=== PATIENT | male | born 1965 | race African-American/Black ===

== ENCOUNTER → 2018-06-23 | Outpatient (CLI) | payer OTHER ==
[~2018-06-23] MED LIST: CARVEDILOL25 MG PO; CLEOCIN HC150 MG/CAP PO; CLONIDINE0.2 MG PO; COREG12.5 MG PO; HCTZ 25MG TAB25 MG; NORCO 325 MG-51 TAB PO; PROCARDIA XL90 MG PO; SULAR10 MG PO; VICTOZA6 MG/ML SC; ZYLOPRIM 300MG300 MG PO
== END ==
LOC: COL.RAD 06-17 09:30
DX: M46.1 Sacroiliitis, not elsewhere classified (principal)
CPT/HCPCS: G0260; J3301

== ENCOUNTER 2018-11-24 00:05 | Emergency (ER) | payer OTHER ==
[~2018-11-24] VITALS: Ht 188 cm; Wt 150.0 kg
[2018-11-24 00:15] VITALS: TEMP 98.4
[2018-11-24] MEDS ORDERED: PRINIVIL10 MG PO (00:22)
[2018-11-24] MEDS ORDERED: SULAR34 MG PO (00:22)
[2018-11-24] MEDS ORDERED: COREG 25MG25 MG/TAB PO (00:23)
[2018-11-24] MEDS ORDERED: TRULICITY1.5 MG/0.5 SQ (00:23)
[2018-11-24] MEDS ORDERED: BACTROBAN 22GM22 GM TP (00:58)
[2018-11-24 01:22] LABS: BASO % 0.2 % (0.0-2.0); EOS # 0.1 (0.0-0.7); EOS % 1.2 % (0-4.0); GRAN # 7.3 (1.4-6.5); GRAN % 72.9 % (42.2-75.2); HEMATOCRIT 30.7 % (42.0-52.0); HEMOGLOBIN 10.1 g/dl (13.5-18.0); LYMPH # 1.4 (1.2-3.4); LYMPH % 13.8 % (20.0-51.0); MEAN CELL VOLUME 85 fl (80.0-100.0); MEAN CORPUSCULAR HEMOGLOBIN 28 pg (27.0-31.0); MEAN CORPUSCULAR HGB CONC 33 g/dl (33.0-37.0); MONO # 1.2 (0.1-0.6); MONO % 11.6 % (1.7-9.3); PLATELET COUNT 321 K/mm3 (130-400); RED BLOOD COUNT 3.63 M/mm3 (4.20-5.60); REDCELL DISTRIBUTION WIDTH-CV 14.6 % (11.5-14.5)
[2018-11-24 01:34] LABS: ALANINE AMINOTRANSFERASE < 6 U/L (21-72); ALBUMIN 3.5 gm/dL (3.5-5.0); ALKALINE PHOSPHATASE 65 U/L (50-136); ANION GAP 10 mmol/L (7-16); AST,SGOT 23 U/L (15-37); BILIRUBIN,TOTAL 0.5 mg/dL (0.0-1.0); BLOOD UREA NITROGEN 71 mg/dL (9-20); CALCIUM 8.9 mg/dL (8.4-10.2); CARBON DIOXIDE 27 mmol/L (22-30); CHLORIDE 99 mmol/L (98-107); GLUCOSE 114 mg/dL (74-106); POTASSIUM 3.3 mmol/L (3.4-5.0); SODIUM 136 mmol/L (137-145); TOTAL PROTEIN 7.7 gm/dL (6.4-8.2)
[2018-11-24 01:36] LABS: CREATININE, serum 4.23 (0.66-1.25)
[2018-11-24 01:42] LABS: ERYTHROCYTE SEDIMENTATION RATE > 140 mm/hr (0-30)
[2018-11-24] MEDS ORDERED: PREDNISONE20 MG PO (02:29)
[2018-11-24] MEDS ORDERED: CEPHALEXIN500 M1 PO (02:29)
[2018-11-24] MEDS ORDERED: PERCOCET 325 MG1 TA2 PO (02:29)
[2018-11-24 03:01] VITALS: BP 118/70; PULSE 99
== END 2018-11-24 03:06 | disposition home or self-care (01) ==
LOC: COL.ER 00:05
PROVIDERS: Nurse Practitioner
DX: M79.641 Pain in right hand (principal); M79.89 Other specified soft tissue disorders; E11.9 Type 2 diabetes mellitus without complications; I10 Essential (primary) hypertension
CPT/HCPCS: J7512

== ENCOUNTER 2019-02-21 06:02 | Emergency (ER) | payer OTHER, BC ==
[~2019-02-21] VITALS: Ht 188 cm; Wt 145.5 kg
[~2019-02-21 06:02] MED LIST changes: +BACTROBAN 22GM22 GM TP; +CEPHALEXIN500 M1 PO; +COREG 25MG25 MG/TAB PO; +PERCOCET 325 MG1 TA2 PO; +PREDNISONE20 MG PO; +PRINIVIL10 MG PO; +SULAR34 MG PO; +TRULICITY1.5 MG/0.5 SQ
[2019-02-21 06:21] VITALS: BP 133/78; TEMP 98.4
[2019-02-21] MEDS ORDERED: PRINIVIL20 MG PO (06:34)
[2019-02-21] MEDS ORDERED: ULORIC80 MG PO (06:35)
[2019-02-21] MEDS ORDERED: PREDNISONE20 MG PO (06:47)
[2019-02-21 06:55] VITALS: PULSE 88
== END 2019-02-21 06:55 | disposition home or self-care (01) ==
LOC: COL.ER 06:02
DX: M54.5 Low back pain (principal); E11.22 Type 2 diabetes mellitus with diabetic chronic kidney disease; N18.9 Chronic kidney disease, unspecified
CPT/HCPCS: J7512

== ENCOUNTER 2019-05-18 08:10 | Inpatient (IN) | payer OTHER ==
[~2019-05-18] VITALS: Ht 188 cm; Wt 125.7 kg
[~2019-05-18 08:10] MED LIST changes: +PRINIVIL20 MG PO; +ULORIC80 MG PO
[2019-05-18 09:32] LABS: BASO % 0.3 % (0.0-2.0); EOS # 0.1 (0.0-0.7); GRAN # 9.4 (1.4-6.5); GRAN % 81.4 % (42.2-75.2); HEMOGLOBIN 11.1 g/dl (13.5-18.0); LYMPH % 8.5 % (20.0-51.0); MEAN CELL VOLUME 87 fl (80.0-100.0); MEAN CORPUSCULAR HEMOGLOBIN 28 pg (27.0-31.0); MEAN CORPUSCULAR HGB CONC 32 g/dl (33.0-37.0); MEAN PLATELET VOLUME 9.4 fl (7.4-10.4); MONO % 8.3 % (1.7-9.3); PLATELET COUNT 470 K/mm3 (130-400); REDCELL DISTRIBUTION WIDTH-CV 15.1 % (11.5-14.5)
[2019-05-18 09:43] LABS: ALANINE AMINOTRANSFERASE < 6 U/L (21-72); ALBUMIN 3.9 gm/dL (3.5-5.0); ALKALINE PHOSPHATASE 86 U/L (50-136); ANION GAP 10 mmol/L (7-16); AST,SGOT 19 U/L (15-37); BILIRUBIN,TOTAL 0.6 mg/dL (0.0-1.0); BLOOD UREA NITROGEN 55 mg/dL (9-20); CALCIUM 10.1 mg/dL (8.4-10.2); CARBON DIOXIDE 28 mmol/L (22-30); CHLORIDE 99 mmol/L (98-107); CREATININE, serum 2.97 (0.66-1.25); GLUCOSE 149 mg/dL (74-106); POTASSIUM 3.9 mmol/L (3.4-5.0); SODIUM 137 mmol/L (137-145); TOTAL PROTEIN 8.7 gm/dL (6.4-8.2)
[2019-05-18 10:00] LABS: C-REACTIVE PROTEIN 20.6 mg/dL (0.0-0.9)
[2019-05-18 10:23] LABS: HEMATOCRIT 34.6 % (42.0-52.0)
[2019-05-18 10:27] LABS: ERYTHROCYTE SEDIMENTATION RATE > 140 mm/hr (0-30)
[2019-05-18 13:30] LABS: SYNOVIAL FLUID RBC 1000 /mm3 (0-0); SYNOVIAL FLUID WBC 15200 /mm3 (200-600)
[2019-05-18 13:31] LABS: SYNOVIAL FLUID APPEARANCE CLOUDY; SYNOVIAL FLUID COLOR YELLOW
[2019-05-18 16:35] VITALS: BP 146/79; PULSE 72; TEMP 98.2
[2019-05-18] MEDS ORDERED: NORCO 325 MG-101 TAB PO (17:30)
[2019-05-18 19:19] VITALS: BP 153/76; PULSE 70; TEMP 97.8
--- NOTE | 2019-05-18 20:40 | NUR ---
Patient assessed at this time. Alert and oriented x 4, and able to make needs known. Reports pain has decreased to left knee, rated as a 3 at this time. Declines ice to area. NS running at 125 ml/hr to peripheral IV to right AC. Site is without redness, warmth, swelling, and pain. Denies SOB and dyspnea. LS CTA. Respirations even and unlabored. HRR. Cap refill < 3 sec. Non-tenting skin turgor. BSAx4. Abdomen soft and non-tender. Ryan wrap to left knee intact to help with swelling. Elevated with pillows. Given walker to help with mobility. Educated to still call for assistance for safety, and voiced understanding. Voices no questions, needs, or concerns at this time. Resting in bed with call light within reach.
[2019-05-18 23:39] VITALS: BP 149/62; PULSE 72; TEMP 98.9
[2019-05-19 03:35] VITALS: BP 167/79; PULSE 70
[2019-05-19 06:17] LABS: BASO % 0.4 % (0.0-2.0); EOS # 0.1 (0.0-0.7); EOS % 1.5 % (0-4.0); GRAN % 75.6 % (42.2-75.2); LYMPH % 12.5 % (20.0-51.0); MEAN CELL VOLUME 89 fl (80.0-100.0); MEAN CORPUSCULAR HGB CONC 32 g/dl (33.0-37.0); MEAN PLATELET VOLUME 9.9 fl (7.4-10.4); MONO # 0.8 (0.1-0.6); MONO % 9.6 % (1.7-9.3); PLATELET COUNT 439 K/mm3 (130-400); RED BLOOD COUNT 3.53 M/mm3 (4.20-5.60); REDCELL DISTRIBUTION WIDTH-CV 15.4 % (11.5-14.5)
--- NOTE | 2019-05-19 06:19 | NUR ---
Patient received [place] twice this shift around midnight and four for pain to left knee. Voices no other questions, needs, or concerns at this time. IV site to right AC was leaking. New IV started to right forearm. NS continues to run at 125 ml/hr per orders.
[2019-05-19 06:20] LABS: HEMATOCRIT 31.4 % (42.0-52.0); HEMOGLOBIN 9.9 g/dl (13.5-18.0); MEAN CORPUSCULAR HEMOGLOBIN 28 pg (27.0-31.0)
[2019-05-19 06:46] LABS: ALBUMIN 3.6 gm/dL (3.5-5.0); CALCIUM 9.7 mg/dL (8.4-10.2); CREATININE, serum 3.29 (0.66-1.25); PHOSPHOROUS 4.6 mg/dL (2.5-4.5); POTASSIUM 3.8 mmol/L (3.4-5.0)
--- NOTE | 2019-05-19 06:50 | NUR ---
Vancomycin Initial Dosing Pharmacy Note Ordering provider: Obi Enamorado MD Indication/duration: Few Gm+ cells in knee aspirate Relevant comorbidities: T2DM, gout LABS: SCr 2.97 on 05/18, 3.29 on 05/19 Recommendation: Loading dose: 1.5 grams given 05/18/19 @ 15:36 Maintenance dose: 1 gram Q24H starting 05/19/19 @ 10:00 Trough goal: 15-20 ug/mL Trough draw: prior to the 4th dose, 05/21/19 @ 09:30 Will continue to follow.
[2019-05-19 07:20] VITALS: BP 166/99; PULSE 68; TEMP 98
--- NOTE | 2019-05-19 09:16 | NUR ---
SW met with the patient to discuss discharge plan. The patient lives in [place] with his brothers: Quinn (ph#[phone]) and Floresita. He works at [employer]. He reports independence with ADLs and has a wheelchair available if needed. He states he has been needing to use it recently, due to his knee pain. The patient's PCP is Dr. Olya Guillen and he receives his medications at [facility]. He reports no difficulties obtaining his meds. The patient does not have advanced directives completed and he was not interested in completing them at this time. The patient plans to return home with his brothers upon discharge. SW to continue to follow.
[2019-05-19 11:05] VITALS: BP 165/88; PULSE 71; TEMP 98.3
--- NOTE | 2019-05-19 11:13 | NUR ---
Initial visit; Patient thanked Party Demonstrator for looking in on him and offering empathy and God's blessings.
[2019-05-19 16:00] VITALS: BP 174/91; PULSE 78; TEMP 98.8
--- NOTE | 2019-05-19 18:16 | NUR ---
Pt assessment completed and charted. Medications administered per SEP. VORB from [facility] to decrease IVF rate from 125 to 75 ml/hr. Pt c/o some "swelling" in LE. Pt denies SOB, dizziness, N/V/D, chest pain. Pt c/o left knee pain, attempted to work with PT, very little progress made. Pt has RFA IV w/ IVF w/ no complications. pt on room air. pt using bedside urinal. Pt rating pain earlier this morning at 9/10, 8/10, and then 5/10 this evening. Administered PRN [place] per SEP, pt states it "seems to be working well". No other concerns voiced at this time.
[2019-05-19 19:02] VITALS: BP 142/71; PULSE 75; TEMP 98.7
--- NOTE | 2019-05-19 21:00 | NUR ---
Alert and oriented x 4, and able to make needs known. Complaining of level 8 pain to left knee. Given PRN [place] as requested. NS running at 75 ml/hr to peripheral IV to right forearm. Site is without redness, warmth, swelling, and pain. Denies SOB and dyspnea. LS CTA. Respirations even and unlabored. HRR. Capillary refill less than 3 seconds. Non-tenting skin turgor. BSAx4. 1+ edema BLE. Voices no questions, needs, or concerns at this time. Call light is within reach.
[2019-05-20] VITALS: BP 180/92; PULSE 75; TEMP 98.6
[2019-05-20 03:39] VITALS: BP 180/88; PULSE 74; TEMP 98.6
--- NOTE | 2019-05-20 03:55 | NUR ---
Patient complaining of level 8 pain to left knee. Given PRN [place] for pain.
--- NOTE | 2019-05-20 05:21 | NUR ---
VIDA Graves has been effective with pain management this shift. Has voiced no questions, needs, or concerns. Resting in bed with call light within reach.
[2019-05-20 06:25] LABS: BASO % 0.3 % (0.0-2.0); EOS # 0.1 (0.0-0.7); EOS % 1.9 % (0-4.0); GRAN % 73.1 % (42.2-75.2); LYMPH # 0.9 (1.2-3.4); LYMPH % 13.1 % (20.0-51.0); MEAN CELL VOLUME 88 fl (80.0-100.0); MEAN CORPUSCULAR HGB CONC 31 g/dl (33.0-37.0); MONO # 0.8 (0.1-0.6); MONO % 11.2 % (1.7-9.3); PLATELET COUNT 374 K/mm3 (130-400); REDCELL DISTRIBUTION WIDTH-CV 15.2 % (11.5-14.5)
[2019-05-20 06:29] LABS: HEMATOCRIT 30.9 % (42.0-52.0); HEMOGLOBIN 9.6 g/dl (13.5-18.0); MEAN CORPUSCULAR HEMOGLOBIN 27 pg (27.0-31.0)
[2019-05-20 07:05] LABS: ALBUMIN 3.3 gm/dL (3.5-5.0); CALCIUM 9.4 mg/dL (8.4-10.2); CREATININE, serum 2.82 (0.66-1.25); POTASSIUM 3.6 mmol/L (3.4-5.0)
[2019-05-20 07:06] VITALS: BP 162/78; PULSE 68; TEMP 99.2
[2019-05-20 12:18] VITALS: BP 171/85; PULSE 70; TEMP 97.9
--- NOTE | 2019-05-20 15:02 | NUR ---
SW met with the patient to review discharge plan and to discuss PT's recommendation of a FWW and home health vs post-acute rehab. The patient reports that he does not need a FWW and that he wants to go home upon discharge. He states that he does not need any help and that once he gets up and going, he will be fine. He states that he would be able to transfer himself to the bathroom. SW provided the patient with Medicare.[employer]'s list of home health agencies that serve [place] to review. TIAGO to continue to follow.
[2019-05-20 16:00] VITALS: BP 179/92; PULSE 77; TEMP 99.3
[2019-05-20 20:19] VITALS: PULSE 86; TEMP 98.2
--- NOTE | 2019-05-20 20:30 | NUR ---
Initial shift assessment done- denies need for pain med at this time- was just up to bathroom awhile ago and states its fine now- left knee warm/swollen. No requests, does not want a snack tonight- states he will call for help up to the bathroom
[2019-05-21 00:13] VITALS: BP 188/90; PULSE 73; TEMP 97.9
[2019-05-21 04:47] VITALS: BP 187/90; PULSE 71; TEMP 98.3
--- NOTE | 2019-05-21 05:36 | NUR ---
Has not slept much- sitting at edge of bed most of the night- no requests, denies any pain,
[2019-05-21 07:18] LABS: BASO % 0.3 % (0.0-2.0); EOS % 0.1 % (0-4.0); GRAN # 6.3 (1.4-6.5); LYMPH # 0.9 (1.2-3.4); LYMPH % 11.5 % (20.0-51.0); MEAN CELL VOLUME 86 fl (80.0-100.0); MEAN CORPUSCULAR HGB CONC 32 g/dl (33.0-37.0); MEAN PLATELET VOLUME 10.6 fl (7.4-10.4); MONO # 0.5 (0.1-0.6); MONO % 6.7 % (1.7-9.3); PLATELET COUNT 340 K/mm3 (130-400); RED BLOOD COUNT 3.58 M/mm3 (4.20-5.60); REDCELL DISTRIBUTION WIDTH-CV 14.6 % (11.5-14.5)
[2019-05-21 07:27] LABS: HEMATOCRIT 30.6 % (42.0-52.0); HEMOGLOBIN 9.9 g/dl (13.5-18.0); MEAN CORPUSCULAR HEMOGLOBIN 28 pg (27.0-31.0)
[2019-05-21 07:37] LABS: ALBUMIN 3.6 gm/dL (3.5-5.0); CALCIUM 9.9 mg/dL (8.4-10.2); CREATININE, serum 2.34 (0.66-1.25); POTASSIUM 4.1 mmol/L (3.4-5.0)
[2019-05-21 08:58] VITALS: BP 169/91; PULSE 72; TEMP 98.3
[2019-05-21] MEDS ORDERED: PREDNISONE20 MG PO (11:16)
[2019-05-21] MEDS ORDERED: PEPCID40 MG PO (11:16)
[2019-05-21] MEDS ORDERED: ULORIC80 MG PO (11:17)
[2019-05-21 12:06] VITALS: BP 190/104; PULSE 63; TEMP 98.2
--- NOTE | 2019-05-21 15:58 | NUR ---
1405: PATIENT DC TO HOME VIA POV ACCOMPANIED BY BROTHER TRANSLATOR. PRINTED DC INSTRUCTIONS TO INCLUDED MEDICATIONS ANDS FOLLOW UP REVIEWED WITH PATIENT. ALL QUESTIONS AND CONCERNS ANSWERS AFTER REVIEW. STRESSED THE NEED TO MONITOR BLOOD PRESSURES AND REPORT HIGH BLOOD PRESSURES TO PRIMARY CARE AND DR MCGRATH. PATIENT STATES "i WONT HAVE PROBLEMS WITH MY BLOOD PRESSURES AT HOME".
== END 2019-05-21 14:05 | disposition home or self-care (01) | DRG 554 ==
LOC: COL.ER 08:10 → MEDICAL 14:52
PROVIDERS: Emergency Medicine; Physician Assistant; ADMIT Internal Medicine Nephrology
PROC: 0S9D3ZX Drainage of Left Knee Joint, Percutaneous Approach, Diagnostic (ICD-10-PCS; principal; 2019-05-18)
DX: M10.9 Gout, unspecified (principal); N17.9 Acute kidney failure, unspecified; M25.462 Effusion, left knee; E11.22 Type 2 diabetes mellitus with diabetic chronic kidney disease; I12.9 Hypertensive chronic kidney disease with stage 1 through stage 4 chronic kidney disease, or unspecified chronic kidney disease; N18.3 Chronic kidney disease, stage 3 (moderate); E11.21 Type 2 diabetes mellitus with diabetic nephropathy; E66.9 Obesity, unspecified; Z68.35 Body mass index [BMI] 35.0-35.9, adult; Z89.422 Acquired absence of other left toe(s); Z79.891 Long term (current) use of opiate analgesic
CPT/HCPCS: J1815; J1885; J2270; J3370; J7030; J7050; J7512

== ENCOUNTER → 2019-06-21 | Outpatient (CLI) | payer OTHER ==
[~2019-06-21] MED LIST changes: +NORCO 325 MG-101 TAB PO; +PEPCID40 MG PO
== END ==
LOC: COL.LAB 11:35
DX: M10.9 Gout, unspecified (principal)

== ENCOUNTER 2019-08-23 09:39 | Inpatient (IN) | payer OTHER ==
[~2019-08-23] VITALS: Ht 188 cm; Wt 139.7 kg
[2019-08-23 10:43] LABS: BASO % 0.5 % (0.0-2.0); EOS # 0.1 (0.0-0.7); EOS % 1.4 % (0-4.0); GRAN # 6.2 (1.4-6.5); GRAN % 70.1 % (42.2-75.2); LYMPH # 1.3 (1.2-3.4); LYMPH % 14.5 % (20.0-51.0); MEAN CELL VOLUME 87 fl (80.0-100.0); MEAN CORPUSCULAR HGB CONC 32 g/dl (33.0-37.0); MEAN PLATELET VOLUME 9.3 fl (7.4-10.4); MONO # 1.1 (0.1-0.6); PLATELET COUNT 407 K/mm3 (130-400); RED BLOOD COUNT 3.12 M/mm3 (4.20-5.60); REDCELL DISTRIBUTION WIDTH-CV 14.9 % (11.5-14.5)
[2019-08-23 10:45] LABS: HEMOGLOBIN 8.5 g/dl (13.5-18.0); MEAN CORPUSCULAR HEMOGLOBIN 27 pg (27.0-31.0)
[2019-08-23 10:53] LABS: ALANINE AMINOTRANSFERASE < 6 U/L (21-72); ALBUMIN 3.6 gm/dL (3.5-5.0); ALKALINE PHOSPHATASE 63 U/L (50-136); ANION GAP 11 mmol/L (7-16); AST,SGOT 12 U/L (15-37); BILIRUBIN,TOTAL 0.5 mg/dL (0.0-1.0); BLOOD UREA NITROGEN 33 mg/dL (9-20); CALCIUM 9.2 mg/dL (8.4-10.2); CARBON DIOXIDE 26 mmol/L (22-30); CHLORIDE 98 mmol/L (98-107); GLUCOSE 115 mg/dL (74-106); LIPASE 31 U/L (23-300); POTASSIUM 3.6 mmol/L (3.4-5.0); SODIUM 136 mmol/L (137-145); TOTAL PROTEIN 7.7 gm/dL (6.4-8.2)
[2019-08-23 11:04] LABS: TROPONIN-I 0.035 ng/mL (0.000-0.035)
[2019-08-23 11:16] LABS: INR 1.3 (0.8-3.0)
[2019-08-23] MEDS ORDERED: ZYLOPRIM 300MG300 MG PO (11:33)
[2019-08-23] MEDS ORDERED: TYLENOL 500MG500 MG PO (13:26)
--- NOTE | 2019-08-23 13:30 | NUR ---
Pt arrived to floor at this time via cart with ED staff. Wanted to get himself from bed to cart via pivot but took a long time to be able to do so, do not feel safe letting pt ambulate on their own. Pt resting in bed, doing well, called [facility] and notified of arrival. Will continue to monitor.
[2019-08-23 17:42] VITALS: BP 130/50; PULSE 92; TEMP 100.5
[2019-08-23 17:46] VITALS: BP 130/50; PULSE 92; TEMP 100.5
--- NOTE | 2019-08-23 18:21 | NUR ---
Pt resting in bed, [facility] to see pt this evening. Orders received and implemented. Will give bedside shift report to nightshift nurse who will resume care.
--- NOTE | 2019-08-23 19:30 | NUR ---
Received report from Catherine day shift nurse. Seen patient awake, sitting on bed. With INT on right AC. Patient requests for Tylenol for his right knee pain. Assessment done.
--- NOTE | 2019-08-23 21:00 | NUR ---
Informed patient that we need to collect urine sample. Changed his urinal to a new one. Patient requests for bedside commode for his bowel movement. Call light within reach.
[2019-08-23 21:52] VITALS: BP 134/67; PULSE 90; TEMP 99.7
[2019-08-24 00:50] VITALS: BP 115/40; PULSE 88; TEMP 99.4
--- NOTE | 2019-08-24 04:35 | NUR ---
Patient states he has pain of 9/10 on his right knee pain. Tylenol PRN given. Urine specimen sent to lab.
[2019-08-24 04:38] VITALS: BP 105/55; PULSE 89; TEMP 99
[2019-08-24 05:06] LABS: COLLECTION METHOD CLEAN CATCH
[2019-08-24 05:32] LABS: MUCOUS Present /lpf; PH 5 (5-8); SQUAMOUS EPITHELIAL 0-2 /hpf; URINE APPEARANCE Hazy; URINE BACTERIA None Seen /hpf; URINE BILIRUBIN Negative (NEGATIVE); URINE BLOOD 1+ (NEGATIVE); URINE COLOR Yellow; URINE GLUCOSE Negative (NEGATIVE); URINE KETONE Negative (NEGATIVE); URINE LEUKOCYTE ESTERASE Negative (NEGATIVE); URINE NITRATE Negative (NEGATIVE); URINE PROTEIN(semi-quant) 2+ (NEGATIVE); URINE UROBILINOGEN Negative (NEGATIVE)
[2019-08-24 05:49] LABS: URINE PROTEIN:CREAT RATIO 0.91 (0.00-0.14)
[2019-08-24 07:32] LABS: ALBUMIN 3.3 gm/dL (3.5-5.0); CALCIUM 9.1 mg/dL (8.4-10.2); CREATININE, serum 3.24 (0.66-1.25); PHOSPHOROUS 3.5 mg/dL (2.5-4.5); POTASSIUM 3.4 mmol/L (3.4-5.0)
[2019-08-24 08:17] VITALS: BP 131/69; PULSE 87; TEMP 99.1
--- NOTE | 2019-08-24 11:01 | NUR ---
TIAGO met with the patient to discuss discharge plan. The patient lives in [place] with his two brothers: Venu (ph#[phone]) and Monica Hernandez. He reports independence with ADLs and has a cane and wheelchair. He states that he has been utilizing the wheelchair more lately. The patient's PCP is Dr. Olya Guillen and he receives his medications at [facility]. He reports no difficulties obtaining his meds. The patient does not have advanced directives completed, but he was interested in obtaining a form for DPOA-HC. TIAGO provided. He states that his next of kin is his brothers. The patient plans to return home with brothers upon discharge. No additional needs at this time, but SW to continue to follow as needed.
--- NOTE | 2019-08-24 12:05 | NUR ---
First visit from the account executive key accounts. No needs right now.
[2019-08-24 12:58] VITALS: BP 148/69; PULSE 85; TEMP 98.5
[2019-08-24 16:24] VITALS: BP 146/75; PULSE 88; TEMP 99.4
[2019-08-24 22:10] VITALS: BP 131/73; PULSE 95; TEMP 100.4
--- NOTE | 2019-08-24 23:00 | NUR ---
Shift assessment complete. Patient in bed, awake. States pain 5/10, declining pain medication. Denies further needs at this time. Will continue to monitor.
[2019-08-25] VITALS (7 sets, daily range): BP systolic 113–152; BP diastolic 59–76; PULSE 81–95; TEMP 97.3–101.8
[2019-08-25 07:37] LABS: BASO % 0.2 % (0.0-2.0); EOS # 0.1 (0.0-0.7); GRAN # 7.2 (1.4-6.5); GRAN % 74.5 % (42.2-75.2); HEMATOCRIT 26.4 % (42.0-52.0); HEMOGLOBIN 8.4 g/dl (13.5-18.0); LYMPH % 10.3 % (20.0-51.0); MEAN CELL VOLUME 87 fl (80.0-100.0); MEAN CORPUSCULAR HEMOGLOBIN 28 pg (27.0-31.0); MEAN CORPUSCULAR HGB CONC 32 g/dl (33.0-37.0); MONO # 1.3 (0.1-0.6); MONO % 13.6 % (1.7-9.3); PLATELET COUNT 367 K/mm3 (130-400); RED BLOOD COUNT 3.04 M/mm3 (4.20-5.60); REDCELL DISTRIBUTION WIDTH-CV 14.7 % (11.5-14.5)
[2019-08-25 07:47] LABS: ALBUMIN 3.2 gm/dL (3.5-5.0); CALCIUM 8.8 mg/dL (8.4-10.2); CREATININE, serum 3.05 (0.66-1.25); PHOSPHOROUS 4.1 mg/dL (2.5-4.5); POTASSIUM 3.6 mmol/L (3.4-5.0)
[2019-08-25 14:08] LABS: SYNOVIAL FL. MONONUCLEAR 3.9 % (0-75); SYNOVIAL FLUID RBC 1000 /mm3 (0-0); SYNOVIAL FLUID WBC 40310 /mm3 (200-600)
[2019-08-25 14:27] LABS: SYNOVIAL FLUID APPEARANCE CLOUDY; SYNOVIAL FLUID COLOR YELLOW
--- NOTE | 2019-08-25 19:15 | NUR ---
Received report from Dinorah. Patient is awake, sitting in bed. With INT on Right AC. Patient states he has tolerable pain and declines for pain meds. Assessment done. Will continue to monitor.
--- NOTE | 2019-08-25 23:33 | NUR ---
Patient's temp is 101.6F and states he has right knee pain with pain score of 8-9/10. Tylenol given for fever and Tramadol given for severe pain. Will recheck after an hour if temperature went down.
[2019-08-26] VITALS (7 sets, daily range): BP systolic 10–114; BP diastolic 51–60; PULSE 85–90; TEMP 98.7–100.4
--- NOTE | 2019-08-26 00:44 | NUR ---
Rechecked temp= 99.8F and patient states pain lessen already with pain score of 3-4/10.
[2019-08-26 07:27] LABS: BASO % 0.1 % (0.0-2.0); EOS # 0.1 (0.0-0.7); EOS % 0.8 % (0-4.0); HEMATOCRIT 24.6 % (42.0-52.0); HEMOGLOBIN 7.6 g/dl (13.5-18.0); LYMPH # 0.9 (1.2-3.4); MEAN CELL VOLUME 88 fl (80.0-100.0); MEAN CORPUSCULAR HEMOGLOBIN 27 pg (27.0-31.0); MEAN CORPUSCULAR HGB CONC 31 g/dl (33.0-37.0); MEAN PLATELET VOLUME 9.8 fl (7.4-10.4); MONO # 1.3 (0.1-0.6); MONO % 12.5 % (1.7-9.3); PLATELET COUNT 353 K/mm3 (130-400); RED BLOOD COUNT 2.79 M/mm3 (4.20-5.60); REDCELL DISTRIBUTION WIDTH-CV 14.8 % (11.5-14.5)
[2019-08-26 07:36] LABS: ALBUMIN 3.1 gm/dL (3.5-5.0); CALCIUM 8.6 mg/dL (8.4-10.2); CREATININE, serum 4.33 (0.66-1.25); PHOSPHOROUS 5.4 mg/dL (2.5-4.5)
--- NOTE | 2019-08-26 08:41 | NUR ---
Pt in bed resting this morning, awake and alert, no C/O pain at this time, shift assessments complete, left Pt call light in reach, bed in lowest position.
--- NOTE | 2019-08-26 11:37 | NUR ---
First visit from the service employee. No needs right now.
--- NOTE | 2019-08-26 17:59 | NUR ---
Pt arrived to floor from the ER this afternoon, no C/O pain currently, initial assessments completed, oriented to the room, questions answered.
--- NOTE | 2019-08-26 18:12 | NUR ---
Pt resting in the room tody, some C/O discomfort in his lower extremities during the day, no other issues noted, VS have remained stable.
--- NOTE | 2019-08-26 19:00 | NUR ---
Received report from Thee. Patient is awake, sitting on bed. With ongoing IVF of NS at 100ml/hr on right AC. Patient states mild pain only on his right knee. Call light within reach.
[2019-08-27 00:09] VITALS: BP 120/60; PULSE 86; TEMP 98.8
--- NOTE | 2019-08-27 04:25 | NUR ---
Patient states pain on his right knee with pain score of 7-8/10. Tramadol PRN given.
[2019-08-27 04:26] VITALS: BP 110/52; PULSE 94; TEMP 98.2
--- NOTE | 2019-08-27 07:06 | NUR ---
Endorsed patient to Thee. Patient states he still has pain on his right knee.
[2019-08-27 07:11] VITALS: BP 125/59; PULSE 88; TEMP 99.3
[2019-08-27 07:47] LABS: BASO % 0.1 % (0.0-2.0); EOS # 0.1 (0.0-0.7); EOS % 1.5 % (0-4.0); GRAN # 7.5 (1.4-6.5); GRAN % 79.9 % (42.2-75.2); HEMOGLOBIN 7.4 g/dl (13.5-18.0); LYMPH # 0.7 (1.2-3.4); LYMPH % 7.8 % (20.0-51.0); MEAN CELL VOLUME 86 fl (80.0-100.0); MEAN CORPUSCULAR HEMOGLOBIN 28 pg (27.0-31.0); MEAN CORPUSCULAR HGB CONC 32 g/dl (33.0-37.0); MEAN PLATELET VOLUME 10.2 fl (7.4-10.4); MONO % 10.2 % (1.7-9.3); PLATELET COUNT 363 K/mm3 (130-400); RED BLOOD COUNT 2.69 M/mm3 (4.20-5.60); REDCELL DISTRIBUTION WIDTH-CV 14.6 % (11.5-14.5)
[2019-08-27 07:51] LABS: CALCIUM 8.6 mg/dL (8.4-10.2); CREATININE, serum 4.72 (0.66-1.25); PHOSPHOROUS 6.2 mg/dL (2.5-4.5); POTASSIUM 3.9 mmol/L (3.4-5.0)
--- NOTE | 2019-08-27 08:45 | NUR ---
Pt awake and alert upon entry, some C/O pain in L knee, repositioned for comfort, shift assessment complete, left Pt call light in reach, bed in lowest position.
[2019-08-27 11:58] VITALS: BP 141/64; PULSE 86; TEMP 98.4
[2019-08-27 15:30] VITALS: BP 130/64; PULSE 95; TEMP 99.9
--- NOTE | 2019-08-27 16:52 | NUR ---
Physical therapy is recommending home health. TIAGO met with the patient and provided [employer]s list of agencies in the patient's geographical location. The patient was not open to home health serivces at this time. TIAGO left the list with the patient in case he changes his mind. child protective services social worker will continue to follow.
--- NOTE | 2019-08-27 18:45 | NUR ---
PT report received at bedside with [facility] nurse. PT denies pain, wants/needs at this time. Call light within reach. Will continue to monitor.
--- NOTE | 2019-08-27 19:24 | NUR ---
Pt resting in the room, has C/O pain in both lower extremities, given medications for relief, had right knee aspirated this afternoon, states that it "feels better" when asked. no other complaints. VS have been stable.
[2019-08-27 20:10] LABS: COLLECTION METHOD CLEAN CATCH
[2019-08-27 20:39] LABS: MUCOUS Present /lpf; PH 5 (5-8); SQUAMOUS EPITHELIAL 0-2 /hpf; URINE APPEARANCE Hazy; URINE BACTERIA Rare /hpf; URINE BILIRUBIN Negative (NEGATIVE); URINE BLOOD Negative (NEGATIVE); URINE COLOR Yellow; URINE GLUCOSE Negative (NEGATIVE); URINE KETONE Negative (NEGATIVE); URINE LEUKOCYTE ESTERASE Negative (NEGATIVE); URINE NITRATE Negative (NEGATIVE); URINE PROTEIN(semi-quant) Negative (NEGATIVE); URINE UROBILINOGEN Negative (NEGATIVE); URINE WBC 0-2 /hpf
[2019-08-27 21:23] VITALS: BP 135/69; PULSE 90; TEMP 98.8
[2019-08-27 21:36] LABS: CREATININE, serum 4.5 (0.66-1.25)
[2019-08-28] VITALS (7 sets, daily range): BP systolic 125–155; BP diastolic 64–87; PULSE 83–98; TEMP 97.5–99
--- NOTE | 2019-08-28 00:33 | NUR ---
PT resting in bed with left leg elevated under pillow and bedding watching tv. PT denies pain or discomfort at this time. PT has call light within reach on the bedside table. No s/s of distress noted. Will continue to monitor.
[2019-08-28 06:26] LABS: BASO % 0.2 % (0.0-2.0); GRAN # 5.5 (1.4-6.5); GRAN % 89.6 % (42.2-75.2); LYMPH # 0.5 (1.2-3.4); LYMPH % 7.5 % (20.0-51.0); MEAN CELL VOLUME 83 fl (80.0-100.0); MEAN CORPUSCULAR HGB CONC 33 g/dl (33.0-37.0); MEAN PLATELET VOLUME 9.6 fl (7.4-10.4); MONO # 0.2 (0.1-0.6); MONO % 2.4 % (1.7-9.3); PLATELET COUNT 419 K/mm3 (130-400); RED BLOOD COUNT 3.22 M/mm3 (4.20-5.60); REDCELL DISTRIBUTION WIDTH-CV 14.3 % (11.5-14.5)
[2019-08-28 06:38] LABS: HEMATOCRIT 26.6 % (42.0-52.0); HEMOGLOBIN 8.7 g/dl (13.5-18.0); MEAN CORPUSCULAR HEMOGLOBIN 27 pg (27.0-31.0)
[2019-08-28 06:40] LABS: ALBUMIN 3.3 gm/dL (3.5-5.0); CALCIUM 8.9 mg/dL (8.4-10.2); CREATININE, serum 4.66 (0.66-1.25); PHOSPHOROUS 6.5 mg/dL (2.5-4.5); POTASSIUM 4.4 mmol/L (3.4-5.0)
--- NOTE | 2019-08-28 07:21 | NUR ---
Patient is awake and alert during report. Currently denies pain. He is resting on his back. Respirations are even and nonlabored. Denies any needs at this time. Call light and personal items are within reach.
--- NOTE | 2019-08-28 10:52 | NUR ---
Patient continues to rest in bed, did offer assistance or to provide patient with items to wash up. Did tell patient that I would assist the patient to the shower. He declines stating he would be leaving this morning. Did mention that I could help prior to leaving and he still declined. Patients room smells like he had been sweating. Did also offer to assist patient up to the recliner and he reports that he is comfortable in bed.
--- NOTE | 2019-08-28 19:13 | NUR ---
Patient is resting in bed, had encouraged throughout the day to bathe and he declined stating he would when he got home. He is currently eating supper. Denies pain but states his left knee feels a little tight from working with therapy. He does not say it hurts, just tight. No other needs verbalized. Call light and personal items are within reach.
--- NOTE | 2019-08-28 20:30 | NUR ---
Initial shift assessment done- denies need for pain meds- states " I,m fine for now", has edema to bilateral feet, also edema to both knees, greater in right knee but pt states the left knee is the most uncomfortable and hard to move- but again denies need for pain meds. INT to left forearm-
--- NOTE | 2019-08-29 03:45 | NUR ---
Pt called and stated having pain to bilateral knees 04/06-- will give Tramadol as ordered, has been sleeping well tonight, VSS
[2019-08-29 04:36] VITALS: BP 140/78; PULSE 79; TEMP 97.6
--- NOTE | 2019-08-29 05:59 | NUR ---
States tramadol working well for knee pain- voiding alana urine per urinal
[2019-08-29 06:31] LABS: BASO % 0.1 % (0.0-2.0); GRAN # 7.6 (1.4-6.5); GRAN % 86.9 % (42.2-75.2); LYMPH # 0.7 (1.2-3.4); LYMPH % 7.6 % (20.0-51.0); MEAN CELL VOLUME 82 fl (80.0-100.0); MEAN CORPUSCULAR HGB CONC 33 g/dl (33.0-37.0); MEAN PLATELET VOLUME 9.3 fl (7.4-10.4); MONO # 0.4 (0.1-0.6); MONO % 4.8 % (1.7-9.3); PLATELET COUNT 474 K/mm3 (130-400); RED BLOOD COUNT 3.23 M/mm3 (4.20-5.60); REDCELL DISTRIBUTION WIDTH-CV 14.4 % (11.5-14.5)
[2019-08-29 06:45] LABS: HEMATOCRIT 26.5 % (42.0-52.0); HEMOGLOBIN 8.8 g/dl (13.5-18.0); MEAN CORPUSCULAR HEMOGLOBIN 27 pg (27.0-31.0)
[2019-08-29 06:56] LABS: ALBUMIN 3.1 gm/dL (3.5-5.0); CALCIUM 8.8 mg/dL (8.4-10.2); CREATININE, serum 3.84 (0.66-1.25); PHOSPHOROUS 5.5 mg/dL (2.5-4.5)
--- NOTE | 2019-08-29 07:15 | NUR ---
LENORA IS AWAKE AND ALERT IN HIS ROOM. DENIES PAIN, DID RECEIVE PRN TRAMADOL FROM BUILDING REPAIR MAINTENANCE SUPERVISOR. STATES IT WAS EFFECTIVE, JUST KNEES FEEL PUFFY. DENIES PAIN, OR ANY FURTHER NEEDS. CALL LIGHT AND PERSONAL ITEMS ARE WITHIN REACH.
[2019-08-29 08:01] VITALS: BP 133/68; PULSE 70; TEMP 97.7
[2019-08-29 12:30] VITALS: BP 144/80; PULSE 65; TEMP 97.7
[2019-08-29 17:49] VITALS: BP 143/79; PULSE 70; TEMP 97.9
--- NOTE | 2019-08-29 19:01 | NUR ---
PATIENT IS RESTING IN BED WATCHING TV, DENIES HAVING ANY PAIN. CALL LIGHT AND PERSONAL ITEMS ARE WITHIN REACH.
--- NOTE | 2019-08-29 20:20 | NUR ---
Shift assessment complete. Pt resting in bed, awake, a&o, cooperative c cares. Pt denies pain or any other c/o at this time. INT patent. Pt denies needs. Call light in reach, will continue to monitor.
[2019-08-29 21:06] VITALS: BP 147/83; PULSE 73; TEMP 97.9
[2019-08-30 01:38] VITALS: BP 143/80; PULSE 66; TEMP 97.7
[2019-08-30 04:33] VITALS: BP 160/91; PULSE 69; TEMP 97.4
[2019-08-30 06:45] LABS: BASO % 0.1 % (0.0-2.0); EOS % 0.1 % (0-4.0); GRAN % 80.6 % (42.2-75.2); LYMPH # 1.2 (1.2-3.4); LYMPH % 11.6 % (20.0-51.0); MEAN CELL VOLUME 85 fl (80.0-100.0); MEAN CORPUSCULAR HGB CONC 32 g/dl (33.0-37.0); MEAN PLATELET VOLUME 9.4 fl (7.4-10.4); MONO # 0.7 (0.1-0.6); MONO % 6.9 % (1.7-9.3); PLATELET COUNT 503 K/mm3 (130-400); RED BLOOD COUNT 3.17 M/mm3 (4.20-5.60); REDCELL DISTRIBUTION WIDTH-CV 14.8 % (11.5-14.5)
[2019-08-30 06:51] LABS: HEMOGLOBIN 8.6 g/dl (13.5-18.0); MEAN CORPUSCULAR HEMOGLOBIN 27 pg (27.0-31.0)
[2019-08-30 06:52] LABS: HEMATOCRIT 26.9 % (42.0-52.0)
[2019-08-30 07:20] LABS: ALBUMIN 3.2 gm/dL (3.5-5.0); CREATININE, serum 3.28 (0.66-1.25); PHOSPHOROUS 4.8 mg/dL (2.5-4.5); POTASSIUM 4.1 mmol/L (3.4-5.0)
[2019-08-30 07:43] VITALS: BP 164/95; PULSE 68; TEMP 97.8
--- NOTE | 2019-08-30 08:42 | NUR ---
Patient is sitting up on the side of the bed watching TV. When asked patient does report some pain in the left knee rated about a 3/10. Did inquire if he would like something for pain and he said yes. Was offered APAP or tramadol and he did request 1 tramadol. This was administered. Respirations are even and non labored, was provided with fresh ice water. Breakfast delivered during this time. Call light and personal items are within reach.
--- NOTE | 2019-08-30 08:54 | NUR ---
Patient is noted to have a strong sweaty odor that is very noticible when opening the door. Had been offered warm bath cloths or assistance with a shower. He declined stated he was fine. It was also offered to change his linens and he declined that as well.
[2019-08-30 11:26] VITALS: BP 155/88; PULSE 68; TEMP 98.2
--- NOTE | 2019-08-30 15:14 | NUR ---
Patient discharged home at 1320. Discharge instructions reviwed with patient, verbalized understanding. Independently dressed self. Did call brother for ride. Assisted to private car via wheelchair accompanied by staff. Personal belongings with patient.
== END 2019-08-30 13:20 | disposition home or self-care (01) | DRG 554 ==
LOC: COL.ER 09:39 → MEDICAL 11:17
PROVIDERS: Emergency Medicine; Orthopaedic Surgery; ADMIT Internal Medicine Nephrology
PROC: 0S9C3ZZ Drainage of Right Knee Joint, Percutaneous Approach (ICD-10-PCS; principal; 2019-08-25)
PROC: 0S9C3ZZ Drainage of Right Knee Joint, Percutaneous Approach (ICD-10-PCS; 2019-08-25)
DX: M10.061 Idiopathic gout, right knee (principal); N17.9 Acute kidney failure, unspecified; N18.4 Chronic kidney disease, stage 4 (severe); M10.9 Gout, unspecified; E66.9 Obesity, unspecified; E11.22 Type 2 diabetes mellitus with diabetic chronic kidney disease; Z89.422 Acquired absence of other left toe(s)
CPT/HCPCS: G0378; J0696; J1170; J1815; J3301

== ENCOUNTER 2020-03-18 18:35 | Emergency (ER) | payer OTHER ==
[~2020-03-18] VITALS: Ht 188 cm; Wt 136.4 kg
[~2020-03-18 18:35] MED LIST changes: +TYLENOL 500MG500 MG PO
[2020-03-18 20:11] LABS: BASO % 0.3 % (0.0-2.0); EOS # 0.1 (0.0-0.7); EOS % 1.4 % (0-4.0); GRAN # 6.7 (1.4-6.5); GRAN % 77.3 % (42.2-75.2); HEMATOCRIT 30.3 % (42.0-52.0); HEMOGLOBIN 9.8 g/dl (13.5-18.0); LYMPH # 1.1 (1.2-3.4); LYMPH % 12.3 % (20.0-51.0); MEAN CELL VOLUME 84 fl (80.0-100.0); MEAN CORPUSCULAR HEMOGLOBIN 27 pg (27.0-31.0); MEAN CORPUSCULAR HGB CONC 32 g/dl (33.0-37.0); MEAN PLATELET VOLUME 9.2 fl (7.4-10.4); MONO # 0.7 (0.1-0.6); MONO % 8.5 % (1.7-9.3); PLATELET COUNT 441 K/mm3 (130-400); RED BLOOD COUNT 3.59 M/mm3 (4.20-5.60); REDCELL DISTRIBUTION WIDTH-CV 14.5 % (11.5-14.5)
[2020-03-18 20:26] LABS: ALBUMIN 3.7 gm/dL (3.5-5.0); BILIRUBIN,TOTAL 0.4 mg/dL (0.0-1.0); C-REACTIVE PROTEIN 5.6 mg/dL (0.0-0.9); CALCIUM 9.1 mg/dL (8.4-10.2); CREATININE, serum 4.64 (0.66-1.25); POTASSIUM 3.4 mmol/L (3.4-5.0); TOTAL PROTEIN 8.1 gm/dL (6.4-8.2)
[2020-03-18] MEDS ORDERED: DOXYCYCLINE 10100 MG PO ×3 (21:19→22:09)
[2020-03-18] MEDS ORDERED: CEPHALEXIN500 M1 PO ×3 (21:19→22:09)
[2020-03-18 22:08] VITALS: BP 126/74; PULSE 76; TEMP 99.2
== END 2020-03-18 22:20 | disposition home or self-care (01) ==
LOC: COL.ER 18:35
PROVIDERS: Emergency Medicine
DX: L03.114 Cellulitis of left upper limb (principal); L02.414 Cutaneous abscess of left upper limb; I13.10 Hypertensive heart and chronic kidney disease without heart failure, with stage 1 through stage 4 chronic kidney disease, or unspecified chronic kidney disease; E11.9 Type 2 diabetes mellitus without complications; N18.9 Chronic kidney disease, unspecified; Z79.84 Long term (current) use of oral hypoglycemic drugs; Z89.429 Acquired absence of other toe(s), unspecified side
CPT/HCPCS: J0696

== ENCOUNTER 2020-10-06 13:34 | Inpatient (IN) | payer SELFPAY ==
[~2020-10-06] VITALS: Ht 188 cm; Wt 136.8 kg
[2020-10-06] VITALS (10 sets, daily range): BP systolic 170–207; BP diastolic 82–96; PULSE 67–77; TEMP 97.6–98.3
[~2020-10-06 13:34] MED LIST changes: +DOXYCYCLINE 10100 MG PO
--- NOTE | 2020-10-06 13:45 | NUR ---
PATIENT ARRIVED TO ROOM 323 VIA WHEELCHAIR FROM ADMISSIONS. PATIENT ORIENTED AND SETTELED INTO ROOM.
--- NOTE | 2020-10-06 14:45 | NUR ---
PATIENT ADMISSION COMPLETE. CONSENT OBTAINED AND PLACED ON PATIENTS CHART. NURSING STAFF HAD FOUR UNSUCCESSFUL IV ATTEMPTS. PRINCIPAL SYSTEMS ENGINEER CALLED AND NOTIFED. PRINCIPAL SYSTEMS ENGINEER TO START PATIENTS IV. PATIENT RESTING IN BED. CALL LIGHT IN REACH. NO NEEDS AT THIS TIME.
--- NOTE | 2020-10-06 15:12 | NUR ---
PATIENT TAKEN DOWN TO NURSING COORDINATOR VIA BED FOR DIALYSIS CATH PLACEMENT. WILL WAIT FOR PATIENT ARRIVAL BACK TO ROOM 323.
--- NOTE | 2020-10-06 15:49 | NUR ---
SEE MERGE FOR ALL MEDICATION ADMINISTRATION TIMES, INTRA AND POST SEDATION ASSESSMENT
--- NOTE | 2020-10-06 16:00 | NUR ---
CALLED AND NOTIFIED THAT THE PATIENT IS DOWN IN PRIMARY SPECIAL EDUCATION TEACHER GETTING HIS DIALYSIS CATHETER PLACED AT THIS TIME. PHYSICIAN IN PARKING LOT, WILL BE UP SHORTLY TO ENTER ORDERS.
--- NOTE | 2020-10-06 16:17 | NUR ---
Dr. Enamorado contacted B[facility] and advised that TIAGO Hartman at the Dialysis Unit submitted a Medicaid application for patient today. TIAGO emailed Nevaeh Financial Counselor. TIAGO also left a message for Minnie.
--- NOTE | 2020-10-06 16:40 | NUR ---
PATIENT ARRIVED BACK TO ROOM 323 VIA BED FROM X RAY INSPECTOR. PATIENT SETTELED INTO ROOM. PATIENT TOLERATING CLEAR LIQUIDS. POST-OP VSS. PATIENT REPORTING PAIN IN HIS BACK AND LEG FROM LAYING ON THE TABLE DURING THE PROCEDURE. BROTHER PRESENT AT THE BEDSIDE. CALL LIGHT IN REACH. NO NEEDS AT THIS TIME.
--- NOTE | 2020-10-06 18:25 | NUR ---
POST-OP VSS AND COMPLETE. PATIENT RESTING IN BED. PATIENT VOIDING POST- PROCEDURE. DINNER TRAY ORDERED. WILL REPORT OFF TO ONCOMING NURSE.
--- NOTE | 2020-10-06 18:26 | NUR ---
CALLED AND NOTIFIED THAT THERE ARE STILL NO ORDERS IN THE COMPUTER. PATIENTS POST-OP SYSTOLIC BLOOD PRESSURES IN THE 170-180'S. TORB FOR ADA/DIALYSIS DIET WITH 1500 ML FLUID RESTRICTION. ACCU CHECKS ACHS WITH MID-DOSE SS. PHYSICIAN TO REVIEW AND RESTART HOME MEDICATIONS.
--- NOTE | 2020-10-06 20:19 | NUR ---
Pt. sitting up in bed at this time. Pt. is A&OX3, assessment complete. INT to rt. hand patent. HD catheter to rt. chest, dressing CDI. Pt. denies pain or other needs, call light within reach.
[2020-10-07 04:29] VITALS: BP 167/71; PULSE 81; TEMP 98
[2020-10-07 05:40] LABS: COLLECTION METHOD CLEAN CATCH
[2020-10-07 05:49] LABS: MUCOUS Present /lpf; PH 6 (5-8); SQUAMOUS EPITHELIAL None Seen /hpf; URINE APPEARANCE Hazy; URINE BACTERIA Rare /hpf; URINE BILIRUBIN Negative (NEGATIVE); URINE BLOOD 1+ (NEGATIVE); URINE COLOR Yellow; URINE GLUCOSE Negative (NEGATIVE); URINE KETONE Negative (NEGATIVE); URINE LEUKOCYTE ESTERASE Negative (NEGATIVE); URINE NITRATE Negative (NEGATIVE); URINE PROTEIN(semi-quant) 3+ (NEGATIVE); URINE UROBILINOGEN Negative (NEGATIVE)
[2020-10-07 06:35] LABS: BASO % 0.4 % (0.0-2.0); EOS # 0.1 (0.0-0.7); EOS % 2.6 % (0-4.0); GRAN # 3.4 (1.4-6.5); GRAN % 67.8 % (42.2-75.2); LYMPH # 0.9 (1.2-3.4); LYMPH % 17.7 % (20.0-51.0); MEAN CELL VOLUME 86 fl (80.0-100.0); MEAN CORPUSCULAR HGB CONC 32 g/dl (33.0-37.0); MEAN PLATELET VOLUME 10.5 fl (7.4-10.4); MONO # 0.6 (0.1-0.6); MONO % 11.1 % (1.7-9.3); PLATELET COUNT 310 K/mm3 (130-400); RED BLOOD COUNT 2.91 M/mm3 (4.20-5.60); REDCELL DISTRIBUTION WIDTH-CV 15.9 % (11.5-14.5)
[2020-10-07 06:39] LABS: HEMATOCRIT 25.1 % (42.0-52.0); MEAN CORPUSCULAR HEMOGLOBIN 27 pg (27.0-31.0)
[2020-10-07 06:44] LABS: ALBUMIN 3.1 gm/dL (3.5-5.0); BILIRUBIN,TOTAL 0.3 mg/dL (0.0-1.0); CALCIUM 8.2 mg/dL (8.4-10.2); CREATININE, serum 8.18 (0.66-1.25); PHOSPHOROUS 4.7 mg/dL (2.5-4.5); POTASSIUM 3.1 mmol/L (3.4-5.0); TOTAL PROTEIN 7.1 gm/dL (6.4-8.2); URIC ACID 12.5 mg/dL (3.5-8.5)
--- NOTE | 2020-10-07 06:50 | NUR ---
Lying in bed with eyes open. Alert and oriented x4. Minimal pain, mainly in left knee, describes as sore. Dressing to right chest for HD cath CDI, small amount of old drainage noted on dressing, nothing new. Patient says that he thinks that he is to have dialysis today but not sure on time. Patient also explains in the past he was on Norvasc and it did not work for him. Is now on nisolidine, had brother bring in, and it was sent to the pharmacy, he takes at bedtime and he would prefer to be on this medication. Explain that we will talk with pharmacy and Dr. Enamorado on getting this ordered. Patient denies additional needs at this time.
[2020-10-07 07:12] LABS: ERYTHROCYTE SEDIMENTATION RATE > 140 mm/hr (0-30)
--- NOTE | 2020-10-07 07:33 | NUR ---
Speak with Arsalan in pharmacy and explain that the patient would prefer to be on his own medication nisolidine, which was sent by coiler operator to the pharmacy, and not Norvasc. Arsalan says that he will review and let this nurse know what needs to be done.
[2020-10-07 07:37] VITALS: BP 153/81; PULSE 76; TEMP 98.3
--- NOTE | 2020-10-07 07:51 | NUR ---
Receive call back from Arsalan in pharmacy. He says that Dr. Enamorado will need to confirm that the patient can have the Norvasc dc'd and that he can take his own medication nisolidine at bedtime.
--- NOTE | 2020-10-07 08:15 | NUR ---
Patient to dialysis via wheelchair at this time by
--- NOTE | 2020-10-07 10:41 | NUR ---
Patient back to room from dialysis via wheelchair by Margaret.
--- NOTE | 2020-10-07 10:45 | NUR ---
Patient tolerated his 1 st HD tx today, c/o nausea within 30 mins of tx & resolved with decrease in UF Goal & Zofran. Removed 300 mL of fluid. Next tx planned for tomorrow, Friday10/08/20 @ 0730 or Friday10/09/20 @ 0730.
[2020-10-07 11:01] VITALS: BP 146/68; PULSE 67; TEMP 97.9
--- NOTE | 2020-10-07 11:17 | NUR ---
Sitting on edge of bed. Denies pain at this time. Is aware that if his pain in knees comes back to let us know and we can provide Tramadol. Patient will order lunch when ready. Denies additional needs at this time.
--- NOTE | 2020-10-07 12:54 | NUR ---
Sitting on edge of bed eating lunch at this time. Denies needs or concerns.
--- NOTE | 2020-10-07 13:52 | NUR ---
Sitting on edge of bed. Psych Sales Specialist in room discussing diet with the patient.
--- NOTE | 2020-10-07 14:07 | NUR ---
SW met with patient to conduct intake evaluation. Patient lives at home in [place] with his two brothers Venu and RONEL Antonio (P# [phone]). Patient does not have a DPOA. He will consider filling out paperwork. Please check back in with patient tomorrow regarding DPOA. Patient is independent at home and uses a cane for mobility. Patient is concerned about paying for meds and his stay. housekeeper/custodian/laundry worker placed a call to Nevaeh Retana in finance to address these needs. Patient plans to return home with brothers, who will provide transportation, at discharge. Patient denies questions or concerns at this time. Social work will continue to follow.
[2020-10-07 15:01] VITALS: BP 176/85; PULSE 65; TEMP 98.1
--- NOTE | 2020-10-07 15:07 | NUR ---
Sitting on edge of bed talking with visitor at bedside. Denies pain at this time. BP 176/85, apresoline administered as prescribed. Patient denies additional needs at this time.
[2020-10-07 15:58] VITALS: BP 167/91
--- NOTE | 2020-10-07 16:42 | NUR ---
Lying in bed with eyes open. Says that pain continues to be okay at this time. Accu check 77, provide some grape juice and armando crackers. Patient will order supper. Denies additional needs at this time.
[2020-10-07 18:34] LABS: HEPATITIS B SURFACE ANTIGEN Negative (Negative)
[2020-10-07 18:35] LABS: HEPATITIS B SURFACE ANTIBODY <2.0 (()); HEPATITIS C VIRUS ANTIBODY Negative (Negative)
[2020-10-07 19:16] VITALS: BP 177/90; PULSE 67; TEMP 97.4
--- NOTE | 2020-10-07 20:05 | NUR ---
Pt. sitting up in bed at this time. Pt. is A&OX3, assessment complete. INT to rt. hand patent. HD catheter to rt. chest patent, dressing CDI. Pt. denies pain or other needs, call light within reach.
[2020-10-08] VITALS (9 sets, daily range): BP systolic 163–206; BP diastolic 76–108; PULSE 64–72; TEMP 97.5–100
--- NOTE | 2020-10-08 06:55 | NUR ---
Lying in bed with eyes open. Alert and oriented x4. Denies pain at this time. Patient aware that he will have dialysis today and we will keep him updated on time. Encourage patient to call to get breakfast ordered so if they show up early he has already eaten. Patient verbalizes understanding. Denies additional needs at this time.
--- NOTE | 2020-10-08 08:56 | NUR ---
Patient to dialysis via wheelchair by
[2020-10-08 09:22] LABS: BASO % 0.4 % (0.0-2.0); EOS # 0.2 (0.0-0.7); EOS % 3.8 % (0-4.0); GRAN # 3.2 (1.4-6.5); GRAN % 64.9 % (42.2-75.2); HEMATOCRIT 23.6 % (42.0-52.0); HEMOGLOBIN 7.6 g/dl (13.5-18.0); LYMPH # 0.9 (1.2-3.4); LYMPH % 18.6 % (20.0-51.0); MEAN CELL VOLUME 86 fl (80.0-100.0); MEAN CORPUSCULAR HEMOGLOBIN 28 pg (27.0-31.0); MEAN CORPUSCULAR HGB CONC 32 g/dl (33.0-37.0); MEAN PLATELET VOLUME 9.9 fl (7.4-10.4); MONO # 0.6 (0.1-0.6); MONO % 12.1 % (1.7-9.3); PLATELET COUNT 303 K/mm3 (130-400); RED BLOOD COUNT 2.74 M/mm3 (4.20-5.60); REDCELL DISTRIBUTION WIDTH-CV 16.1 % (11.5-14.5)
[2020-10-08 09:35] LABS: ALBUMIN 3.1 gm/dL (3.5-5.0); CALCIUM 8.3 mg/dL (8.4-10.2); CREATININE, serum 7.09 (0.66-1.25); PHOSPHOROUS 4.7 mg/dL (2.5-4.5); POTASSIUM 3.3 mmol/L (3.4-5.0)
--- NOTE | 2020-10-08 11:30 | NUR ---
Patient back to room via wheelchair by Margaret.
--- NOTE | 2020-10-08 12:05 | NUR ---
BP elevated, apresoline administered as prescribed. Patient resting in bed, has ordered lunch. Denies further needs.
--- NOTE | 2020-10-08 13:45 | NUR ---
BP continues to be elevated. Dr. Enamorado updated and orders received for Lasix. Will administer at this time.
--- NOTE | 2020-10-08 16:12 | NUR ---
Sitting on edge of bed. BP remains elevated, apresoline administered as prescribed. Provide walker to patient per his request. Encourage patient to ask for assistance when needed as well. Offer patient wipes to bath with and toothbrush and toothpaste and patient declines. Denies additional needs at this time.
--- NOTE | 2020-10-08 17:28 | NUR ---
Sitting up in bed watching TV. BP 166/92. Patient having some discomfort in left knee and would like Tramadol. Tramadol administered as prescribed. Dinner tray here. Patient denies additional needs.
--- NOTE | 2020-10-08 18:10 | NUR ---
Sitting up in bed watching TV. Visitor at bedside. Patient says that the Tamadol has not helped much yet but knows he needs to give it more time. Denies needs at this time.
--- NOTE | 2020-10-08 20:10 | NUR ---
Pt. sitting up in bed. Pt. is A&OX3, assessment complete. INT to rt. wrist patent. HD cath to rt chest, dressing CDI. Pt. denies pain or other needs, call light within reach.
[2020-10-09 03:55] VITALS: BP 154/67; PULSE 68; TEMP 98
[2020-10-09 06:01] LABS: BASO % 0.7 % (0.0-2.0); EOS # 0.2 (0.0-0.7); EOS % 4.1 % (0-4.0); GRAN # 2.4 (1.4-6.5); GRAN % 55.7 % (42.2-75.2); LYMPH # 1.1 (1.2-3.4); LYMPH % 25.6 % (20.0-51.0); MEAN CELL VOLUME 87 fl (80.0-100.0); MEAN CORPUSCULAR HGB CONC 32 g/dl (33.0-37.0); MEAN PLATELET VOLUME 10.5 fl (7.4-10.4); MONO # 0.6 (0.1-0.6); MONO % 13.7 % (1.7-9.3); PLATELET COUNT 298 K/mm3 (130-400); RED BLOOD COUNT 2.74 M/mm3 (4.20-5.60)
[2020-10-09 06:10] LABS: HEMATOCRIT 23.7 % (42.0-52.0); HEMOGLOBIN 7.6 g/dl (13.5-18.0); MEAN CORPUSCULAR HEMOGLOBIN 28 pg (27.0-31.0)
[2020-10-09 06:21] LABS: ALBUMIN 3.2 gm/dL (3.5-5.0); CALCIUM 8.5 mg/dL (8.4-10.2); CREATININE, serum 6.51 (0.66-1.25); PHOSPHOROUS 4.4 mg/dL (2.5-4.5); POTASSIUM 3.3 mmol/L (3.4-5.0); URIC ACID 7.2 mg/dL (3.5-8.5)
[2020-10-09 07:10] VITALS: BP 185/82; PULSE 69; TEMP 98.6
--- NOTE | 2020-10-09 07:30 | NUR ---
Patient in bed resting. Alert and oriented x 3. Assessment complete. HD cath to right chest with dressing intact. Patient denies pain at this time. Denies fruther needs at this time.
[2020-10-09 08:21] VITALS: BP 173/80; PULSE 63
--- NOTE | 2020-10-09 08:23 | NUR ---
BP recheck at 173/80, Apresoline given at this time.
--- NOTE | 2020-10-09 08:47 | NUR ---
Patient to dialysis by wheelchair.
[2020-10-09] MEDS ORDERED: ZYLOPRIM 300MG300 MG PO (10:53)
--- NOTE | 2020-10-09 11:00 | NUR ---
Patient back from dialysis
[2020-10-09 11:36] VITALS: BP 178/91; PULSE 67; TEMP 98
--- NOTE | 2020-10-09 13:31 | NUR ---
PT recommends outpatient PT. SW met with the patient to discuss their recommendation. The patient states that he is not interested in any outpatient therapy and plans to return home with his brothers. The patient is to tentatively d/c today. No additional needs at this time.
--- NOTE | 2020-10-09 16:00 | NUR ---
Discharge education provided to patient. Educated on when to call provider and dialysis appointment for tomorrow. Educated on HD cath. All questions answered. INT to right wrist discontinued, cathter tip intact. Denies further needs at this time. Patient out by wheelchair with surgical staff.
== END 2020-10-09 16:00 | disposition home or self-care (01) | DRG 675 ==
LOC: SURG 13:34
PROVIDERS: ADMIT Internal Medicine Nephrology
PROC: 0JH63XZ Insertion of Tunneled Vascular Access Device into Chest Subcutaneous Tissue and Fascia, Percutaneous Approach (ICD-10-PCS; principal; 2020-10-06)
PROC: 02H633Z Insertion of Infusion Device into Right Atrium, Percutaneous Approach (ICD-10-PCS; 2020-10-06)
PROC: 5A1D70Z Performance of Urinary Filtration, Intermittent, Less than 6 Hours Per Day (ICD-10-PCS; 2020-10-06)
DX: N17.9 Acute kidney failure, unspecified (principal); N18.4 Chronic kidney disease, stage 4 (severe); D63.1 Anemia in chronic kidney disease; E11.22 Type 2 diabetes mellitus with diabetic chronic kidney disease; M25.462 Effusion, left knee; I12.9 Hypertensive chronic kidney disease with stage 1 through stage 4 chronic kidney disease, or unspecified chronic kidney disease; M10.9 Gout, unspecified
CPT/HCPCS: J0690; J1644; J1940; J2250; J2405; J2916; J3010; J7030; Q5106

== ENCOUNTER 2020-11-02 07:45 | Outpatient (RCR) | payer BC ==
[2020-11-02] VITALS (10 sets, daily range): BP systolic 149–180; BP diastolic 85–108; PULSE 72–77; TEMP 98.1–99.2
[~2020-11-02] VITALS: Ht 188 cm; Wt 130.5 kg
--- NOTE | 2020-11-02 13:35 | NUR ---
Pt tolerated transfusion without issue. IV DC'd with catheter intact. He is assisted out to brother's car, and will have dialysis later this afternoon.
== END 2020-11-02 14:00 | disposition home or self-care (01) ==
LOC: EUO 07:45
DX: D64.9 Anemia, unspecified (principal)
CPT/HCPCS: P9016

== ENCOUNTER → 2021-01-12 | Outpatient (CLI) | payer BC ==
[~2021-01-12] MED LIST changes: +AURYXIA1 GM PO; +BONINE25 MG PO; +CEFAZOLIN1 G1 IV; +COUMADIN 2MG2 MG/TAB PO; +IMODIUM 2MG CAPS2 MG PO; +NORVASC 10MG10 MG PO; +ZESTRIL40 MG PO; +ZOFRAN 4MG T4 MG/TAB PO
== END ==
LOC: COL.VAS 11:45
DX: Z49.01 Encounter for fitting and adjustment of extracorporeal dialysis catheter (principal)

== ENCOUNTER 2021-01-18 11:55 | Day surgery (SDC) | payer BC ==
[~2021-01-18] VITALS: Ht 189.2 cm; Wt 128.6 kg
[~2021-01-18 11:55] MED LIST changes: -AURYXIA1 GM PO; -BONINE25 MG PO; -CEFAZOLIN1 G1 IV; -COUMADIN 2MG2 MG/TAB PO; -IMODIUM 2MG CAPS2 MG PO; -NORVASC 10MG10 MG PO; -ZESTRIL40 MG PO; -ZOFRAN 4MG T4 MG/TAB PO
[2021-01-18 12:48] LABS: BASO % 0.6 % (0.0-2.0); EOS # 0.2 (0.0-0.7); EOS % 4.5 % (0-4.0); GRAN # 2.9 (1.4-6.5); HEMATOCRIT 36.3 % (42.0-52.0); HEMOGLOBIN 11.7 g/dl (13.5-18.0); LYMPH # 1.1 (1.2-3.4); LYMPH % 23.3 % (20.0-51.0); MEAN CELL VOLUME 91 fl (80.0-100.0); MEAN CORPUSCULAR HEMOGLOBIN 29 pg (27.0-31.0); MEAN CORPUSCULAR HGB CONC 32 g/dl (33.0-37.0); MONO # 0.4 (0.1-0.6); MONO % 9.4 % (1.7-9.3); PLATELET COUNT 236 K/mm3 (130-400); REDCELL DISTRIBUTION WIDTH-CV 19.5 % (11.5-14.5)
[2021-01-18 12:49] VITALS: BP 177/98; PULSE 69; TEMP 98.4
[2021-01-18] MEDS ORDERED: NORVASC 10MG10 MG PO (12:59)
[2021-01-18] MEDS ORDERED: ZESTRIL40 MG PO (12:59)
[2021-01-18 13:01] LABS: CALCIUM 9.1 mg/dL (8.4-10.2); CREATININE, serum 12.36 (0.66-1.25); POTASSIUM 4.7 mmol/L (3.4-5.0)
--- NOTE | 2021-01-18 13:02 | NUR ---
TO RM 7 AT 1213- CALL LIGHT IN REACH WILL NEED TO CALL BROTHER FOR RIDE HOME
[2021-01-18 15:24] VITALS: BP 151/77; PULSE 65; TEMP 97.2
--- NOTE | 2021-01-18 15:24 | NUR ---
TO RM 7 PER CART FROM OR. DROWSY, BUT TALKING TO STAFF. DRESSING UPPER RIGHT SIDE OF CHEST CLEAN DRY INTACT. DENIES PAIN OR DISCOMFORT.
[2021-01-18 15:40] VITALS: BP 152/78; PULSE 67
--- NOTE | 2021-01-18 15:40 | NUR ---
RECEIVED MUMICHELLEIN AND SPRITE.
[2021-01-18 15:55] VITALS: BP 162/85; PULSE 66
--- NOTE | 2021-01-18 15:55 | NUR ---
ATE 100% AND TOLERATED WELL.
[2021-01-18 16:10] VITALS: BP 174/79; PULSE 64
--- NOTE | 2021-01-18 16:25 | NUR ---
RECEIVED DISCHARGE INSTRUCTIONS AND VERBALIZED UNDERSTANDING. DISCONTINUED IV AND INT- CATHETER IN TACT PATIENT GETTING DRESSED. CALLED BROTHER FOR RIDE.
--- NOTE | 2021-01-18 16:35 | NUR ---
AMBULATED TO BATHROOM HOLDING ONTO DOORWAY AND RAIL NEXT TO BATHROOM. SAT INTO IN BATHROOM TO BE WHEELED OUT.
--- NOTE | 2021-01-18 16:45 | NUR ---
DISCHARGED PER WC BY NURSING STAFF TO PRIVATE CAR IN CARE OF BROTHER KOBI.
== END 2021-01-18 16:59 | disposition home or self-care (01) ==
LOC: SDCO 11:55
PROVIDERS: Surgery
DX: T85.611A Breakdown (mechanical) of intraperitoneal dialysis catheter, initial encounter (principal); N18.4 Chronic kidney disease, stage 4 (severe); E11.22 Type 2 diabetes mellitus with diabetic chronic kidney disease; I12.9 Hypertensive chronic kidney disease with stage 1 through stage 4 chronic kidney disease, or unspecified chronic kidney disease; M10.9 Gout, unspecified; G89.29 Other chronic pain; M54.9 Dorsalgia, unspecified; D64.9 Anemia, unspecified; E66.9 Obesity, unspecified; Z89.421 Acquired absence of other right toe(s); Z79.899 Other long term (current) drug therapy
CPT/HCPCS: J0360; J0690; J1644; J2250; J2704; J3010; J7030

== ENCOUNTER 2021-02-10 16:16 | Inpatient (IN) | payer BC ==
[~2021-02-10] VITALS: Ht 190.5 cm; Wt 124.2 kg
[~2021-02-10 16:16] MED LIST changes: +NORVASC 10MG10 MG PO; +ZESTRIL40 MG PO
[2021-02-10 17:31] LABS: BASO % 0.4 % (0.0-2.0); EOS % 0.2 % (0-4.0); GRAN # 4.1 (1.4-6.5); GRAN % 73.1 % (42.2-75.2); HEMATOCRIT 41.2 % (42.0-52.0); HEMOGLOBIN 13.5 g/dl (13.5-18.0); LYMPH # 0.5 (1.2-3.4); LYMPH % 9.6 % (20.0-51.0); MEAN CELL VOLUME 90 fl (80.0-100.0); MEAN CORPUSCULAR HEMOGLOBIN 30 pg (27.0-31.0); MEAN CORPUSCULAR HGB CONC 33 g/dl (33.0-37.0); MEAN PLATELET VOLUME 11.6 fl (7.4-10.4); MONO # 0.9 (0.1-0.6); PLATELET COUNT 244 K/mm3 (130-400); RED BLOOD COUNT 4.58 M/mm3 (4.20-5.60); REDCELL DISTRIBUTION WIDTH-CV 16.2 % (11.5-14.5)
[2021-02-10 17:38] LABS: INR 1.4 (0.8-3.0); PROTHROMBIN TIME 15.5 SECONDS (9.7-12.8)
[2021-02-10 18:17] LABS: BILIRUBIN,TOTAL 0.4 mg/dL (0.0-1.0); CALCIUM 9.2 mg/dL (8.4-10.2); POTASSIUM 4.8 mmol/L (3.4-5.0); TOTAL PROTEIN 8.4 gm/dL (6.4-8.2)
[2021-02-10 18:20] LABS: CREATININE, serum 17.11 (0.66-1.25)
[2021-02-10 18:28] LABS: C-REACTIVE PROTEIN 17.4 mg/dL (0.0-0.9)
[2021-02-10 18:29] LABS: TROPONIN-I 0.169 ng/mL (0.000-0.035)
--- NOTE | 2021-02-10 22:57 | NUR ---
PT ADMITTED TO ROOM 343 FROM E.D. PT VERY GROGGY/DROWSY. PT DOES ANSWER QUESTIONS BUT SEEMS TO HAVE A HARD TIME FOCUSING ON CONVERSATION. TYLENOL FOR GENERAL DISCOMFORT. PT HAS WHAT LOOKS LIKE A LOT OF OLD SKIN ISSUES THAT HAVE HEALED.
[2021-02-11] VITALS (10 sets, daily range): BP systolic 91–188; BP diastolic 53–92; PULSE 80–109; TEMP 98.2–102.9
[2021-02-11 06:17] LABS: BASO % 0.4 % (0.0-2.0); EOS % 0.3 % (0-4.0); GRAN # 5.4 (1.4-6.5); GRAN % 73.6 % (42.2-75.2); HEMATOCRIT 37.5 % (42.0-52.0); HEMOGLOBIN 12.1 g/dl (13.5-18.0); LYMPH # 0.5 (1.2-3.4); LYMPH % 7.3 % (20.0-51.0); MEAN CELL VOLUME 91 fl (80.0-100.0); MEAN CORPUSCULAR HEMOGLOBIN 29 pg (27.0-31.0); MEAN CORPUSCULAR HGB CONC 32 g/dl (33.0-37.0); MEAN PLATELET VOLUME 11.2 fl (7.4-10.4); MONO # 1.3 (0.1-0.6); MONO % 17.9 % (1.7-9.3); PLATELET COUNT 213 K/mm3 (130-400); RED BLOOD COUNT 4.13 M/mm3 (4.20-5.60); REDCELL DISTRIBUTION WIDTH-CV 16.4 % (11.5-14.5)
--- NOTE | 2021-02-11 06:25 | NUR ---
RESTING QUIETLY. TYLENOL ADMIN. FOR GENERAL DISCOMFORT. PT SEEMS A BIT MORE ALERT NOW. ORANGE JUICE GIVEN EARLIER IN SHIFT FOR BLOOD SUGER OF 69.
[2021-02-11 06:27] LABS: ALBUMIN 3.5 gm/dL (3.5-5.0); CALCIUM 8.8 mg/dL (8.4-10.2); PHOSPHOROUS 8.9 mg/dL (2.5-4.5); POTASSIUM 4.6 mmol/L (3.4-5.0)
[2021-02-11 06:38] LABS: CREATININE, serum 18.3 (0.66-1.25)
--- NOTE | 2021-02-11 07:50 | NUR ---
Patient resting in bed. repositioned. heel protectors on. sheet on. patient skin is moist. Restricted extrimity band placed & signage up. dialysis diet breakfast ordered. Tele on per orders. Vss. Will monitor patient
[2021-02-11] MEDS ORDERED: COUMADIN 2MG2 MG/TAB PO (08:56)
--- NOTE | 2021-02-11 08:58 | NUR ---
Patient resting in bed. He had minimal interest in food. ate a few bites of eggs. Dr Enamorado called and check ed in on patient. Plans for dialysis, he is calling in dialysis nurse. Patient given PRN apresoline for BP & tyelnol for pain.
--- NOTE | 2021-02-11 12:01 | NUR ---
Patient in dialysis with Margaret. Margaret made aware of patient positive blood cultures, she made aware. She also assessed dialysis site, seems swollen. Low grade temp, she made aware.
--- NOTE | 2021-02-11 12:35 | NUR ---
Sw tried to complete intake but pt was not in his room. Sw to try back at another time to complete intake.
--- NOTE | 2021-02-11 12:41 | NUR ---
Patient remains in dialysis with Margaret, Margaret called for Prn Zofran & Tylenol. Given per orders. Dr Enamorado at bedside. Patient shivering, warm blanket provided
--- NOTE | 2021-02-11 15:05 | NUR ---
Patient HD tx completed today without any fluid removal. Patient shivering intermittently & pt c/o chills during the tx. Report given to Nurse Eva. Patient's post VS: Temp 101.4 orally, Bp elevated 205/106 & tachycardiac @ 105. Patient denies feeling lightheaeded or dizzy or c/o [place]. Zofran & Tylenol were given during HD tx. Next planned HD tx tomorrow, Friday02/12/21 @ 0800.
--- NOTE | 2021-02-11 16:00 | NUR ---
Patient given extensive bedbath. He had episode of incontinence stool. new linens provided. extensive pericare provided. barrier cream applied to periarea-reddness & irritation noted. multiple packs of wipes used, due to dialysis cath patient unable to get in shower. Assisted patient to brush his teeth. Patient feet were filthy. cleaned between toes- crusting dirt on feet. toenails in poor condition. patient reports he normally wears sandles. deotorant provided & lotion to skin. patient has had fevers today & had chills & sweating.
--- NOTE | 2021-02-11 16:35 | NUR ---
Patient temp elevated. called & made aware, orders to given evening dose of ancef now. 2 grams given via IV. made aware of consult. supplies gathered for cath removal. He will be in to remove. Patient Bp has also been elevated in 180s-prn apresoline was given without effects. Home dose of coreg to be given. Tyelnol given for fever and pain.
--- NOTE | 2021-02-11 17:31 | NUR ---
called. Patient fever remains after tyelnol. Becoming hypotensive. /53-patient remains aware & alert, he does reports being dizzy.
--- NOTE | 2021-02-11 19:53 | NUR ---
Patient dialysis cath removed by patient tolerated fairly well. Cath tip send to lab for culture. Right chest gauze dressing intact. clean & dry. Patient Bp improved. Heart rate imporved, but still continues to have a fever. Patient had an episode of incontinent urine. New linens provided & bed bath again provided. Patient repositioned in bed. Patient continue to have minimal appetite, but nepro was provided. Scds ble. heel protectors on. Int to Rac. Tele on. Report to demond
[2021-02-12] VITALS (7 sets, daily range): BP systolic 126–153; BP diastolic 66–81; PULSE 69–87; TEMP 97.5–99.5
--- NOTE | 2021-02-12 06:04 | NUR ---
RESTING QUIETLY MOST OF NIGHT. NO N/V. PT WANTS TO SIT, THEN STAND BUT IS OBVIOUSLY TOO WEAK. PT IS MORE ALERT/AWAKE THAN 24 HOURS AGO.
[2021-02-12 06:58] LABS: HEMOGLOBIN 11.3 g/dl (13.5-18.0); MEAN CELL VOLUME 90 fl (80.0-100.0); MEAN CORPUSCULAR HEMOGLOBIN 30 pg (27.0-31.0); MEAN CORPUSCULAR HGB CONC 33 g/dl (33.0-37.0); MEAN PLATELET VOLUME 11.7 fl (7.4-10.4); PLATELET COUNT 185 K/mm3 (130-400); REDCELL DISTRIBUTION WIDTH-CV 16.7 % (11.5-14.5)
[2021-02-12 07:00] LABS: HEMATOCRIT 34.1 % (42.0-52.0)
[2021-02-12 07:08] LABS: ALBUMIN 3.2 gm/dL (3.5-5.0); CALCIUM 8.4 mg/dL (8.4-10.2); POTASSIUM 3.9 mmol/L (3.4-5.0)
[2021-02-12 07:29] LABS: CREATININE, serum 15.44 (0.66-1.25)
[2021-02-12 07:52] LABS: BAND 22 % (0-10); EOSINOPHIL 1 % (0-4); LYMPHOCYTE 11 % (20.0-51.0); NEUTROPHILS 51 % (42.0-75.2); PLATELET ESTIMATE NORMAL (NORMAL)
--- NOTE | 2021-02-12 10:20 | NUR ---
transmission worker met with patient to discuss discharge planning. Patient states he lives with his brother and plans to return home upon discharge. Patient states his primary care provider is Dr Guillen and that he drives himself to dialysis 3 times/week. (Fri//Fri). Patient states he has [employer] insurance and is able to cover the cost of his presciptions. Patient states he does not have any advance directives and is not interested in completing one at this time. Patient plans discharge to home with brothers upon discharge.
--- NOTE | 2021-02-12 10:51 | NUR ---
Patient up to the chair this am. 3 assist with walker & gaitbelt. Patient was incontinent of stool pipe cares provided as well as fresh linens. Patient vitals stable. afebrile. no chills today. Patient ate a small amount of breakfast, requested orange juice I reviewed with him dialysis/renal diet. did not give orange juice. Int to rac. Prior dialysis site suture intact. Gauze intact. Scds. High fall risk protocol followed. Will monitor.
--- NOTE | 2021-02-12 12:19 | NUR ---
Initial visit; Patient thanked [employer] for looking in on him and offering God's blessings and to keep him in [employer]'s prayers.
--- NOTE | 2021-02-12 13:31 | NUR ---
Fern jameson. Orders obtained. Patient medicated with pain per orders, rating pain 10/10. Imodium as ordered. Patient had another loose BM. Pericares provided. Patient a 3 assist back to bed. He had a difficult time getting out of the chair. Tolerates lunch. [place] levi.
--- NOTE | 2021-02-12 19:03 | NUR ---
Patient sitting at edge of bed. He reports sitting up is more comfortable. Patient stood at bedside with therapy assist & air matress applied to bed. Patient reports bed is more comfortable with matress applied. Discussed with him importance of offloading his weight to prevent skin breakdown. Patient did well with dinner. Tylenol for continued pain, unable to take norco yet. He reports immodium did relieve upset stomach. He dislikes taking the tums, but is agreeable. Report to demond Bryant
[2021-02-13 02:59] LABS: BASO % 0.6 % (0.0-2.0); EOS # 0.2 (0.0-0.7); EOS % 4.5 % (0-4.0); GRAN # 3.6 (1.4-6.5); GRAN % 67.1 % (42.2-75.2); HEMATOCRIT 34.5 % (42.0-52.0); HEMOGLOBIN 11.3 g/dl (13.5-18.0); LYMPH # 0.6 (1.2-3.4); LYMPH % 10.4 % (20.0-51.0); MEAN CELL VOLUME 89 fl (80.0-100.0); MEAN CORPUSCULAR HEMOGLOBIN 29 pg (27.0-31.0); MEAN CORPUSCULAR HGB CONC 33 g/dl (33.0-37.0); MEAN PLATELET VOLUME 11.8 fl (7.4-10.4); MONO # 0.9 (0.1-0.6); MONO % 16.6 % (1.7-9.3); PLATELET COUNT 167 K/mm3 (130-400); RED BLOOD COUNT 3.89 M/mm3 (4.20-5.60); REDCELL DISTRIBUTION WIDTH-CV 16.6 % (11.5-14.5)
[2021-02-13 03:09] LABS: ALBUMIN 3.1 gm/dL (3.5-5.0); CALCIUM 8.8 mg/dL (8.4-10.2); PHOSPHOROUS 7.8 mg/dL (2.5-4.5); POTASSIUM 3.7 mmol/L (3.4-5.0)
[2021-02-13 03:15] LABS: CREATININE, serum 16.28 (0.66-1.25)
[2021-02-13 03:24] VITALS: BP 143/79; PULSE 62; TEMP 97.4
[2021-02-13 08:00] VITALS: BP 125/67; PULSE 70; TEMP 97.9
--- NOTE | 2021-02-13 08:34 | NUR ---
Pt currently resting in bed, he does have his breakfast tray which he is working on slowly. Pt does have a visitor with him. Has complaits of back pain from recent fall at home. No other needs verbalized, will continue to monitor
--- NOTE | 2021-02-13 08:49 | NUR ---
Pt ended up refusing his tums and sodium bicarb. Reported that it is making his stomach uneasy and "isn't helping anything".
--- NOTE | 2021-02-13 09:00 | NUR ---
Informed Fern that the pain medication was not working for the pt, no new orders
--- NOTE | 2021-02-13 10:00 | NUR ---
PT in working with pt at this time. Pt sitting on the side of the bed, states he just hurts overall, but that the oral pain medication doesn't work. Osiel with PT assisted pt with standing while I washed his back side. Area to his cleft has some breakdown, it appears to be more of an abrasion. Moisture barrier cream applied to bottom. Pt remains sitting at the side of the bed. 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
[2021-02-13 12:00] VITALS: BP 146/72; PULSE 65; TEMP 98.9
--- NOTE | 2021-02-13 12:53 | NUR ---
Pt resting in bed, he does have his lunch tray, but reports that he does not want to eat at the moment. Denies any needs
--- NOTE | 2021-02-13 15:30 | NUR ---
Pt sitting up on side of bed. Pt does have a visitor with him, does appear to be under the influence. Visitor is not tracking and sways in room. Pt slowly working on eating lunch, but does not appear to be eating much. Pt denies any needs at this time
[2021-02-13 16:00] VITALS: BP 141/89; PULSE 71; TEMP 98.1
--- NOTE | 2021-02-13 17:14 | NUR ---
Pt currently sitting on the side of the bed. Reports that he feels better this way. He has continued to refuse his Tums and sodium bicarb. He stated that he has felt better today with no taking them. Pt denies any needs, will continue to monitor
[2021-02-13 19:45] VITALS: BP 153/86; PULSE 66; TEMP 97.4
--- NOTE | 2021-02-13 20:00 | NUR ---
Report received, assumed care for sebd teacher. Assessment complete. A&Ox3. Denies nausea/shortness of breath. VS remain stable. Slightly elevated blood pressure but not meeting IV antihypertensive medication criteria. Dressing to old HDC site-right subclavian-CDI. Noted to have bilat knee edema. Plan of care discussed for this shift to include HS meds/pain meds/antibiotics/calling for questions/concerns. Verbalizes understanding/denies needs. Call light in reach. Will monitor.
--- NOTE | 2021-02-13 21:00 | NUR ---
Called with c/o pain to bilat feet. Rating pain 7/10 on pain scale-described as cramping. [place] given per dr owens.
[2021-02-13 23:33] VITALS: BP 145/79; PULSE 65; TEMP 98.5
[2021-02-14 03:30] VITALS: BP 135/76; PULSE 77; TEMP 97.9
--- NOTE | 2021-02-14 06:06 | NUR ---
Rested off and on this shift. Received pain medication x1 for back/leg pain. Tolerated PO. INT to right forearm flushes without difficulty. Denies current needs. Call light in reach/bed alarm on. Will monitor.
[2021-02-14 06:49] LABS: BASO % 0.8 % (0.0-2.0); EOS # 0.3 (0.0-0.7); EOS % 5.6 % (0-4.0); GRAN # 3.6 (1.4-6.5); GRAN % 67.5 % (42.2-75.2); HEMOGLOBIN 11.3 g/dl (13.5-18.0); LYMPH # 0.7 (1.2-3.4); LYMPH % 12.6 % (20.0-51.0); MEAN CELL VOLUME 91 fl (80.0-100.0); MEAN CORPUSCULAR HEMOGLOBIN 30 pg (27.0-31.0); MEAN CORPUSCULAR HGB CONC 33 g/dl (33.0-37.0); MEAN PLATELET VOLUME 11.5 fl (7.4-10.4); MONO # 0.7 (0.1-0.6); MONO % 12.6 % (1.7-9.3); PLATELET COUNT 196 K/mm3 (130-400); RED BLOOD COUNT 3.82 M/mm3 (4.20-5.60); REDCELL DISTRIBUTION WIDTH-CV 16.7 % (11.5-14.5)
[2021-02-14 06:50] LABS: HEMATOCRIT 34.7 % (42.0-52.0)
[2021-02-14 07:07] LABS: ALBUMIN 3.1 gm/dL (3.5-5.0); CALCIUM 8.5 mg/dL (8.4-10.2); PHOSPHOROUS 7.7 mg/dL (2.5-4.5); POTASSIUM 3.9 mmol/L (3.4-5.0)
[2021-02-14 07:13] LABS: CREATININE, serum 17.31 (0.66-1.25)
[2021-02-14 07:29] VITALS: BP 152/82; PULSE 64; TEMP 97.6
--- NOTE | 2021-02-14 08:45 | NUR ---
Patient is in bed, alert and orientedx 4, VSS. Rerports no change in pain and rates it as 10 out of 10, PRN provided. Patient refused tums and sodium bicarbonate saying they produce a lot of irritation in his stomach. No further needs at this time. Call light within reach.
[2021-02-14 12:00] VITALS: BP 140/89; PULSE 62; TEMP 97.5
[2021-02-14 17:03] VITALS: BP 168/92; PULSE 66; TEMP 97.3
--- NOTE | 2021-02-14 17:45 | NUR ---
Patient is lying in bed. He had now an femoral access for dialysis in his right side. He still complains of general pain, norco provided. Patient will be transfer to room 351 and shift report will be given to the medical night nurse.
--- NOTE | 2021-02-14 18:24 | NUR ---
Patient refuses to take the second pill of Ranvela. He considers he had enought with one.
--- NOTE | 2021-02-14 20:00 | NUR ---
Assessment complete. Patient is alert and oriented with complaints of "upset stomach"; [place] and Sprite provided, which patient states has helped. HR is normal/regular, lung sounds are clear and no edema is noted. Right femoral dialysis catheter site is CDI with no signs of hematoma. Patient educated to remain with HOB less than 90 degrees and to not get out of bed to prevent bleeding. Patient tolerating breathing RA well. No further complaints, call light in reach and bed alarm set.
[2021-02-14 21:13] VITALS: BP 156/84; PULSE 67; TEMP 98.7
[2021-02-14 23:41] VITALS: BP 164/89; PULSE 66; TEMP 97.7
[2021-02-15 04:24] VITALS: BP 163/77; PULSE 69; TEMP 97.8
[2021-02-15 07:51] VITALS: BP 145/86; PULSE 67; TEMP 98
--- NOTE | 2021-02-15 08:00 | NUR ---
Scheduled medication given. Shift assessment preformed. Patient C/O aching/sharp back pain rated a 10/10. PRN [place] given. Patient refused Renvela and sodium bicarb until he is able to speak with Dr. Enamorado. States that it upsets his stomach. Educated patient on taking these medications with food to help with stomach aches. Patient still prefers to talk with Dr. rodney. Femoral catheter sight dressing clean, dry, and intact, no signs of complications. Patient deneis any further pain, discomfort, or needs at this time. Will continue to monitor. Call light in reach. Fall precautions in place.
--- NOTE | 2021-02-15 09:30 | NUR ---
Patient taken down for dialysis.
[2021-02-15 10:50] LABS: HEMOGLOBIN 10.6 g/dl (13.5-18.0); MEAN CELL VOLUME 89 fl (80.0-100.0); MEAN CORPUSCULAR HEMOGLOBIN 30 pg (27.0-31.0); MEAN CORPUSCULAR HGB CONC 33 g/dl (33.0-37.0); MEAN PLATELET VOLUME 11.3 fl (7.4-10.4); PLATELET COUNT 259 K/mm3 (130-400); RED BLOOD COUNT 3.59 M/mm3 (4.20-5.60); REDCELL DISTRIBUTION WIDTH-CV 16.4 % (11.5-14.5)
[2021-02-15 10:54] LABS: ALBUMIN 3.1 gm/dL (3.5-5.0); CALCIUM 8.6 mg/dL (8.4-10.2); PHOSPHOROUS 8.1 mg/dL (2.5-4.5); POTASSIUM 4.2 mmol/L (3.4-5.0)
[2021-02-15 10:55] LABS: HEMATOCRIT 31.8 % (42.0-52.0)
[2021-02-15 11:00] LABS: CREATININE, serum 18.32 (0.66-1.25)
[2021-02-15 11:30] LABS: ANISOCYTOSIS 1+; BASOPHIL 1 % (0-2); EOSINOPHIL 6 % (0-4); LYMPHOCYTE 13 % (20.0-51.0); METAMYELOCYTE 2 % (0-0); NEUTROPHILS 70 % (42.0-75.2); PLATELET ESTIMATE NORMAL (NORMAL)
--- NOTE | 2021-02-15 12:32 | NUR ---
Patient tolerated HD tx with 1.8 mL fluid removal today. Next planned HD tx on Friday02/16/21 @ 0800. Patient rquested Butter Pecan Nepro & drank it during Hd tx.
--- NOTE | 2021-02-15 14:00 | NUR ---
Georgette, IPR Director, notified SW that she received a referral on the patient. Georgette reports that they she will have to decline the patient, due to him not participating with therapy. PT is recommending post-acute rehab. SW met with the patient to discuss their recommendation and their concern with his activity tolerance. The patient reports that he slipped in some mud on Friday and is just sore. He states that he is getting around slower, but is able to get up and do things on his own. The patient declined post-acute rehab and plans to go back home with his two brothers upon discharge. SW discussed home health and it's benefits. The patient declined home health and states that he will be just fine at home. He states that one of his brothers will transport him home. *Discharge plan: home with brothers*
[2021-02-15 16:12] VITALS: BP 179/79; PULSE 66; TEMP 97.9
--- NOTE | 2021-02-15 19:26 | NUR ---
Patient as had an ok day. MRI completed, results pending. PRN norco given for aching/sharp back pain rated a 8/10. Patient needs further education of phosphate binder. Patient dialyzed today. Scheduled medications given. PRN Apresoline given for blood pressure of 179//79. Patient denies any further needs at this time. Will continue to monitor. Call light in reach. Fall precautions in place.
[2021-02-15 20:04] VITALS: BP 182/90; PULSE 72; TEMP 98.7
[2021-02-16 00:13] VITALS: BP 173/89; PULSE 68; TEMP 98
[2021-02-16 07:40] VITALS: BP 173/87; PULSE 65; TEMP 97.9
--- NOTE | 2021-02-16 08:33 | NUR ---
Patient taken down for dialysis.
[2021-02-16 08:57] LABS: HEMOGLOBIN 10.8 g/dl (13.5-18.0); MEAN CELL VOLUME 89 fl (80.0-100.0); MEAN CORPUSCULAR HEMOGLOBIN 29 pg (27.0-31.0); MEAN CORPUSCULAR HGB CONC 33 g/dl (33.0-37.0); PLATELET COUNT 288 K/mm3 (130-400); REDCELL DISTRIBUTION WIDTH-CV 16.3 % (11.5-14.5)
[2021-02-16 09:05] LABS: ALBUMIN 3.1 gm/dL (3.5-5.0); CALCIUM 8.9 mg/dL (8.4-10.2); PHOSPHOROUS 6.7 mg/dL (2.5-4.5)
[2021-02-16 09:11] LABS: CREATININE, serum 14.3 (0.66-1.25)
[2021-02-16 09:21] LABS: ANISOCYTOSIS 1+; BASOPHIL 1 % (0-2); EOSINOPHIL 3 % (0-4); HYPOCHROMIA 1+; LYMPHOCYTE 19 % (20.0-51.0); MYELOCYTE 1 % (0-0); NEUTROPHILS 65 % (42.0-75.2); PLATELET ESTIMATE NORMAL (NORMAL)
--- NOTE | 2021-02-16 11:43 | NUR ---
Patient tolerated HD tx with 1L fluid removal today. Next planned HD tx on Friday02/19/21 after dialysis IJ tunneled catheter placement.
[2021-02-16 12:00] VITALS: BP 163/91; PULSE 67
--- NOTE | 2021-02-16 13:23 | NUR ---
Attempted to give patient apresoline for BP of 163/91. Patient refused. Will attempt again shortly.
[2021-02-16 14:05] VITALS: BP 190/91; PULSE 67
--- NOTE | 2021-02-16 14:11 | NUR ---
PRN apresoline given for bp of 190/91.
[2021-02-16 15:54] VITALS: BP 181/90; PULSE 66; TEMP 98.7
--- NOTE | 2021-02-16 16:27 | NUR ---
Patient has had an ok day. Patient had dialysis today. Femoral cath still in place, no signs of complications. Catheter to be taken out tomorrow, AV fistula in the LUE and RIJ Dialysis cath to be placed on 02/19. Patient has been refusing to take full ordered does of Fern loo notified. Patient's BP has been elevated this shift. Apresoline given as ordered. Scheduled medications given. Patient denies any pain, discomfort, or further needs at this time. Will continue to monitor. Call light in reach. Fall precautions in place.
[2021-02-16 19:23] VITALS: BP 194/97; PULSE 70; TEMP 98.6
[2021-02-17 00:13] VITALS: BP 199/94; PULSE 65; TEMP 98
[2021-02-17 04:24] VITALS: BP 188/88; PULSE 67; TEMP 97.6
[2021-02-17 07:32] LABS: HEMOGLOBIN 10.9 g/dl (13.5-18.0); MEAN CELL VOLUME 92 fl (80.0-100.0); MEAN CORPUSCULAR HEMOGLOBIN 29 pg (27.0-31.0); MEAN CORPUSCULAR HGB CONC 32 g/dl (33.0-37.0); MEAN PLATELET VOLUME 10.6 fl (7.4-10.4); PLATELET COUNT 281 K/mm3 (130-400); RED BLOOD COUNT 3.71 M/mm3 (4.20-5.60); REDCELL DISTRIBUTION WIDTH-CV 16.2 % (11.5-14.5)
[2021-02-17 07:47] LABS: ALBUMIN 3.2 gm/dL (3.5-5.0); CALCIUM 9.1 mg/dL (8.4-10.2); CREATININE, serum 12.51 (0.66-1.25); PHOSPHOROUS 6.7 mg/dL (2.5-4.5); POTASSIUM 4.2 mmol/L (3.4-5.0)
[2021-02-17 07:48] LABS: HEMATOCRIT 34.2 % (42.0-52.0)
[2021-02-17 08:39] LABS: EOSINOPHIL 2 % (0-4); LYMPHOCYTE 16 % (20.0-51.0); METAMYELOCYTE 1 % (0-0); MYELOCYTE 1 % (0-0); NEUTROPHILS 69 % (42.0-75.2); PLATELET ESTIMATE NORMAL (NORMAL)
[2021-02-17 08:40] LABS: OVALOCYTES 1+
[2021-02-17 08:41] LABS: SCHISTOCYTES 1+
--- NOTE | 2021-02-17 09:01 | NUR ---
I am transferring the patient to dialysis at this time via his bed
--- NOTE | 2021-02-17 10:24 | NUR ---
Assessment completed, alert/oriented, vital signs stable, denies pain or discomfort, refusing breakfast and morning meds, he has been refusing PT/OT, patient in dialysis at this time, kalina pete to monitor
[2021-02-17 13:04] VITALS: BP 152/108; PULSE 69
--- NOTE | 2021-02-17 13:04 | NUR ---
PATIENT TOLERATED HD TX WITH 1L FLUID REMOVAL TODAY. NEXT PLANNED HD TX S/P RIJ TUNNELED DIALYSIS CATHETER ON Friday02/19/21.
--- NOTE | 2021-02-17 13:15 | NUR ---
removed right femoral dialysis catherter, pressure held for 20 minutes, dressing C/D/I, will continue to monitor
[2021-02-17 17:38] VITALS: BP 209/99; PULSE 71; TEMP 98.1
--- NOTE | 2021-02-17 17:45 | NUR ---
Right femoral dressing C/D/I, no hematoma or signs of bleeding
[2021-02-17 19:45] VITALS: BP 212/109; PULSE 72; TEMP 98.4
--- NOTE | 2021-02-17 20:00 | NUR ---
Assessment complete. Patient currently watching TV in bed. He is alert and oriented with no complaints of pain. HR is normal/regular and lungs are clear with diminished bases. No edema is noted. Patient uses urinal at bedside to void. His right hand is contracted in parts but patient is still functional. Pt's BP is 200's/90's and home dose of amlodipine is restarted this evening. No additional concerns; call light in reach and bed alarm set.
[2021-02-18] VITALS (7 sets, daily range): BP systolic 155–210; BP diastolic 86–106; PULSE 69–77; TEMP 97.9–98.4
[2021-02-18 07:25] LABS: HEMOGLOBIN 10.7 g/dl (13.5-18.0); MEAN CELL VOLUME 92 fl (80.0-100.0); MEAN CORPUSCULAR HEMOGLOBIN 29 pg (27.0-31.0); MEAN CORPUSCULAR HGB CONC 31 g/dl (33.0-37.0); MEAN PLATELET VOLUME 9.8 fl (7.4-10.4); PLATELET COUNT 247 K/mm3 (130-400); REDCELL DISTRIBUTION WIDTH-CV 16.1 % (11.5-14.5)
[2021-02-18 07:28] LABS: HEMATOCRIT 34.1 % (42.0-52.0)
[2021-02-18 07:42] LABS: ALBUMIN 3.2 gm/dL (3.5-5.0); CALCIUM 9.4 mg/dL (8.4-10.2); CREATININE, serum 10.87 (0.66-1.25); PHOSPHOROUS 6.5 mg/dL (2.5-4.5); POTASSIUM 4.5 mmol/L (3.4-5.0)
[2021-02-18 08:26] LABS: EOSINOPHIL 1 % (0-4); LYMPHOCYTE 21 % (20.0-51.0); NEUTROPHILS 69 % (42.0-75.2)
[2021-02-18 08:27] LABS: OVALOCYTES 1+; PLATELET ESTIMATE NORMAL (NORMAL); TEAR DROP CELLS 1+
[2021-02-18 08:28] LABS: MICROCYTOSIS 1+
--- NOTE | 2021-02-18 10:28 | NUR ---
Assessment completed, alert/oriented, vital signs stable/ blood pressures improved, denies pain, refused his renvela with breaksfast as he said its makes his "stomach upset", heart RRR, right groin site from femoral HD cath removal dressing c/D/I, no signs of bleeding or hematoma, patient up with PT this morning and has been sitting in the recliner, scheduled for new HD cath placement as well as fistula creation tommorow, I have discused with patient importance of getting in the shower today as he currently has no diaylsis access and this will be his last opporutunity/ he is hesitant but agreeable, denies other needs at this time
--- NOTE | 2021-02-18 20:00 | NUR ---
Report received, assumed care for shift manager. Assessment complete. A&Ox3. Denies pain/nausea. Short of breath with activity. INT to right forearm flushes without difficulty. Discussed NPO status at midnight for procedure. Verbalizes understanding/denies needs. Attempt made to have consent signed but states he doesnt understand why he needs to have a fistula placed when he has perfectly good access else where. Seems confused on why he needs the procedure. States he wants to speak with someone before signing as he doesnt want an unnecessary "thing put in my body when I have a perfectly good vessel that can be used." Instructed I would pass on to day shift.
[2021-02-19 00:39] VITALS: BP 182/90; PULSE 97; TEMP 98.3
--- NOTE | 2021-02-19 01:00 | NUR ---
Blood pressure noted to be elevated-180s/90s. Apresaline given per dr order with a sip of water.
[2021-02-19 03:17] VITALS: BP 179/92; PULSE 77; TEMP 98.6
--- NOTE | 2021-02-19 06:33 | NUR ---
Rested off and on this shift. Denied pain/nausea/shortness of breath. Episodes of HTN treated with PRN meds. Has been NPO since midnight. TELE showing SR. Denies current needs. Call light in reach. Will monitor.
[2021-02-19 07:00] LABS: HEMOGLOBIN 10.5 g/dl (13.5-18.0); MEAN CELL VOLUME 94 fl (80.0-100.0); MEAN CORPUSCULAR HEMOGLOBIN 30 pg (27.0-31.0); MEAN CORPUSCULAR HGB CONC 31 g/dl (33.0-37.0); MEAN PLATELET VOLUME 10.2 fl (7.4-10.4); PLATELET COUNT 261 K/mm3 (130-400); RED BLOOD COUNT 3.55 M/mm3 (4.20-5.60)
[2021-02-19 07:07] LABS: HEMATOCRIT 33.4 % (42.0-52.0)
[2021-02-19 07:11] LABS: ALBUMIN 3.4 gm/dL (3.5-5.0); CALCIUM 9.1 mg/dL (8.4-10.2); CREATININE, serum 12.55 (0.66-1.25); PHOSPHOROUS 7.5 mg/dL (2.5-4.5); POTASSIUM 4.7 mmol/L (3.4-5.0)
[2021-02-19 08:00] VITALS: BP 177/94; PULSE 77; TEMP 98.7
[2021-02-19 08:18] LABS: LYMPHOCYTE 13 % (20.0-51.0); MYELOCYTE 1 % (0-0); NEUTROPHILS 80 % (42.0-75.2)
[2021-02-19 08:19] LABS: ANISOCYTOSIS 1+; HYPOCHROMIA 2+; PLATELET ESTIMATE NORMAL (NORMAL)
[2021-02-19 11:43] VITALS: BP 177/86; PULSE 73; TEMP 98.5
--- NOTE | 2021-02-19 12:57 | NUR ---
PT LEFT TO DIALYSIS. NO S/S OF DISTRESS NOTED.
[2021-02-19 20:13] VITALS: BP 165/99; PULSE 71; TEMP 98.2
--- NOTE | 2021-02-19 21:43 | NUR ---
Pt seems pretty worked up after dialysis. BP is elevated as usual.Pain rated 0/10. Will continue to monitor.
[2021-02-20 00:08] VITALS: BP 153/75; PULSE 80; TEMP 98.6
[2021-02-20 04:47] VITALS: BP 183/85; PULSE 78; TEMP 98.3
[2021-02-20 06:35] LABS: BASO % 0.2 % (0.0-2.0); EOS # 0.1 (0.0-0.7); EOS % 1.1 % (0-4.0); GRAN # 4.9 (1.4-6.5); GRAN % 78.2 % (42.2-75.2); HEMOGLOBIN 10.4 g/dl (13.5-18.0); LYMPH # 0.7 (1.2-3.4); LYMPH % 10.6 % (20.0-51.0); MEAN CELL VOLUME 95 fl (80.0-100.0); MEAN CORPUSCULAR HEMOGLOBIN 30 pg (27.0-31.0); MEAN CORPUSCULAR HGB CONC 31 g/dl (33.0-37.0); MEAN PLATELET VOLUME 10.3 fl (7.4-10.4); MONO # 0.6 (0.1-0.6); MONO % 9.3 % (1.7-9.3); PLATELET COUNT 247 K/mm3 (130-400); RED BLOOD COUNT 3.53 M/mm3 (4.20-5.60); REDCELL DISTRIBUTION WIDTH-CV 15.9 % (11.5-14.5)
[2021-02-20 06:42] LABS: HEMATOCRIT 33.6 % (42.0-52.0)
[2021-02-20 06:50] LABS: ALBUMIN 3.4 gm/dL (3.5-5.0); CALCIUM 8.9 mg/dL (8.4-10.2); CREATININE, serum 9.95 (0.66-1.25); PHOSPHOROUS 6.5 mg/dL (2.5-4.5); POTASSIUM 4.6 mmol/L (3.4-5.0)
[2021-02-20 07:00] VITALS: BP 155/77; PULSE 86; TEMP 98.5
[2021-02-20] MEDS ORDERED: CEFAZOLIN1 G1 IV (11:13)
[2021-02-20 11:20] VITALS: BP 167/74; PULSE 73; TEMP 98.6
--- NOTE | 2021-02-20 12:59 | NUR ---
PT BEING DISCHARGED AT THIS TIME. DISCHARGE INSTRUCTIONS REVIEWED WITH PT. IMPORTANCE OF TAKING HIS MEDICATIONS ORDERED REVIEWED WITH PT. PT VOICES NO CONCERNS ABOUT HIS DISCHARGE INSTRUCTIONS. PT ALSO AWARE THAT HE WILL BE RECIEVING IV ANTIBIOTIC AT HIS DIALYSIS CENTER UNTIL 02/27/21. DIALYSIS CATHETER TO THE RIGHT CHEST WITH DRESSING DRY AND INTACT. LEFT ARM FISTULA SITE SHOWS NO SIGN OF INFECTION. PT INSTRUCTED ON S/S OF INFECTION. THE IMPORTANCE OF HAND HYGIENE. IV ACCESS AND TELE MONITOR REMOVED. PT WAITING FOR HIS TRANSPORTATION HOME AT THIS TIME.
--- NOTE | 2021-02-20 15:16 | NUR ---
The patient discharged back home with his brother today, 02/20. No additional needs at this time.
== END 2021-02-20 14:20 | disposition home or self-care (01) | DRG 264 ==
LOC: COL.ER 16:16 → SURG 19:24 → MEDICAL 19:24 → SURG 02-11 08:00 → MEDICAL 02-14 18:50
PROVIDERS: Nurse Practitioner; Personal Emergency Response Attendant; ADMIT Internal Medicine Nephrology
PROC: 5A1D70Z Performance of Urinary Filtration, Intermittent, Less than 6 Hours Per Day (ICD-10-PCS; principal; 2021-02-11)
PROC: 05PYX3Z Removal of Infusion Device from Upper Vein, External Approach (ICD-10-PCS; 2021-02-11)
PROC: 0JH63XZ Insertion of Tunneled Vascular Access Device into Chest Subcutaneous Tissue and Fascia, Percutaneous Approach (ICD-10-PCS; 2021-02-14)
PROC: 02H633Z Insertion of Infusion Device into Right Atrium, Percutaneous Approach (ICD-10-PCS; 2021-02-19)
PROC: 03180ZD Bypass Left Brachial Artery to Upper Arm Vein, Open Approach (ICD-10-PCS; 2021-02-19)
DX: T80.211A Bloodstream infection due to central venous catheter, initial encounter (principal); N18.6 End stage renal disease; A41.01 Sepsis due to Methicillin susceptible Staphylococcus aureus; T82.7XXA Infection and inflammatory reaction due to other cardiac and vascular devices, implants and grafts, initial encounter; E87.2 Acidosis; I12.0 Hypertensive chronic kidney disease with stage 5 chronic kidney disease or end stage renal disease; E11.22 Type 2 diabetes mellitus with diabetic chronic kidney disease; D63.1 Anemia in chronic kidney disease; M10.9 Gout, unspecified; Z20.822 Contact with and (suspected) exposure to COVID-19; E83.39 Other disorders of phosphorus metabolism; E66.9 Obesity, unspecified; M10.072 Idiopathic gout, left ankle and foot; Z79.01 Long term (current) use of anticoagulants; Z99.2 Dependence on renal dialysis; Z89.422 Acquired absence of other left toe(s)
CPT/HCPCS: C1750; C1751; J0690; J1580; J1644; J2405; J2704; J7030; Q5105

== ENCOUNTER 2021-05-07 19:39 | Emergency (ER) | payer BC ==
[~2021-05-07] VITALS: Ht 188 cm; Wt 127.3 kg
[~2021-05-07 19:39] MED LIST changes: +CEFAZOLIN1 G1 IV; +COUMADIN 2MG2 MG/TAB PO
[2021-05-07 19:43] VITALS: TEMP 98.1
[2021-05-07 20:19] LABS: BASO % 0.5 % (0.0-2.0); EOS # 0.2 K/mm3 (0.0-0.7); EOS % 2.4 % (0-4.0); GRAN # 4.6 K/mm3 (1.4-6.5); GRAN % 73.9 % (42.2-75.2); HEMATOCRIT 38.6 % (42.0-52.0); HEMOGLOBIN 12.5 g/dl (13.5-18.0); LYMPH % 15.6 % (20.0-51.0); MEAN CELL VOLUME 92 fl (80.0-100.0); MEAN CORPUSCULAR HEMOGLOBIN 30 pg (27.0-31.0); MEAN CORPUSCULAR HGB CONC 32 g/dl (33.0-37.0); MONO # 0.5 K/mm3 (0.1-0.6); MONO % 7.3 % (1.7-9.3); PLATELET COUNT 236 K/mm3 (130-400); RED BLOOD COUNT 4.19 M/mm3 (4.20-5.60); REDCELL DISTRIBUTION WIDTH-CV 14.8 % (11.5-14.5)
[2021-05-07 20:37] LABS: ALBUMIN 3.3 gm/dL (3.5-5.0); ALKALINE PHOSPHATASE 59 U/L (0-750); ANION GAP 13 mmol/L (7-16); AST,SGOT 13 U/L (5-34); BILIRUBIN,TOTAL 0.6 mg/dL (0.2-1.2); BLOOD UREA NITROGEN 63 mg/dL (8-26); CALCIUM 9.4 mg/dL (8.4-10.2); CARBON DIOXIDE 19 mmol/L (22-29); CHLORIDE 104 mmol/L (98-107); CREATININE, serum 11.51 mg/dL (0.72-1.25); GLUCOSE 124 mg/dL (70-99); LIPASE 18 U/L (8-78); PHOSPHOROUS 4.7 mg/dL (2.3-4.7); POTASSIUM 4.4 mmol/L (3.5-4.5); SODIUM 136 mmol/L (136-145); TOTAL PROTEIN 7.6 gm/dL (6.2-8.1)
[2021-05-07 20:38] LABS: ALANINE AMINOTRANSFERASE < 6 U/L (0-55)
[2021-05-08 00:47] LABS: COLLECTION METHOD CLEAN CATCH
[2021-05-08 00:53] LABS: PH 6 (5-8); URINE APPEARANCE Clear; URINE BACTERIA Rare /hpf; URINE BILIRUBIN Negative (NEGATIVE); URINE BLOOD 1+ (NEGATIVE); URINE COLOR Straw; URINE GLUCOSE 2+ (NEGATIVE); URINE KETONE Negative (NEGATIVE); URINE LEUKOCYTE ESTERASE Negative (NEGATIVE); URINE NITRATE Negative (NEGATIVE); URINE PROTEIN(semi-quant) 3+ (NEGATIVE); URINE RBC 0-2 /hpf; URINE UROBILINOGEN Negative (NEGATIVE)
[2021-05-08 01:38] VITALS: BP 212/113; PULSE 82
[2021-05-08 02:42] LABS: TRICYCLIC ANTIDEPRESS URINE NEGATIVE
== END 2021-05-08 01:38 | disposition home or self-care (01) ==
LOC: COL.ER 19:39
PROVIDERS: Physician Assistant
DX: I12.0 Hypertensive chronic kidney disease with stage 5 chronic kidney disease or end stage renal disease (principal); E11.22 Type 2 diabetes mellitus with diabetic chronic kidney disease; N18.6 End stage renal disease; D63.1 Anemia in chronic kidney disease; E66.9 Obesity, unspecified; Z99.2 Dependence on renal dialysis; Z79.899 Other long term (current) drug therapy
CPT/HCPCS: J2405; J7030

== ENCOUNTER 2021-05-10 10:26 | Outpatient (CLI) | payer BC ==
[~2021-05-10] VITALS: Ht 190.7 cm; Wt 128.5 kg
[2021-05-10] MEDS ORDERED: AURYXIA1 GM PO (11:14)
[2021-05-10] MEDS ORDERED: IMODIUM 2MG CAPS2 MG PO (11:14)
[2021-05-10 11:19] VITALS: BP 190/112; PULSE 72; TEMP 98.3
--- NOTE | 2021-05-10 11:45 | NUR ---
Discharge instructions given to pt.Pt verbalizes understanding.Pt escorted out via wheelchair by this nurse.
== END 2021-05-10 12:35 ==
LOC: COL.CAR 10:26
DX: T82.868A Thrombosis due to vascular prosthetic devices, implants and grafts, initial encounter (principal); Z53.8 Procedure and treatment not carried out for other reasons

== ENCOUNTER 2021-05-23 09:19 | Emergency (ER) | payer BC ==
[~2021-05-23] VITALS: Ht 188 cm; Wt 125.0 kg
[~2021-05-23 09:19] MED LIST changes: +AURYXIA1 GM PO; +IMODIUM 2MG CAPS2 MG PO
[2021-05-23 09:27] VITALS: TEMP 98.1
[2021-05-23 09:50] LABS: BASO % 0.8 % (0.0-2.0); EOS # 0.5 K/mm3 (0.0-0.7); EOS % 9.7 % (0-4.0); GRAN % 57.3 % (42.2-75.2); HEMOGLOBIN 11.9 g/dl (13.5-18.0); LYMPH # 1.2 K/mm3 (1.2-3.4); LYMPH % 22.9 % (20.0-51.0); MEAN CELL VOLUME 93 fl (80.0-100.0); MEAN CORPUSCULAR HEMOGLOBIN 30 pg (27.0-31.0); MEAN CORPUSCULAR HGB CONC 33 g/dl (33.0-37.0); MEAN PLATELET VOLUME 9.4 fl (7.4-10.4); MONO # 0.5 K/mm3 (0.1-0.6); MONO % 9.1 % (1.7-9.3); PLATELET COUNT 200 K/mm3 (130-400); RED BLOOD COUNT 3.94 M/mm3 (4.20-5.60); REDCELL DISTRIBUTION WIDTH-CV 14.7 % (11.5-14.5)
[2021-05-23 09:54] LABS: HEMATOCRIT 36.6 % (42.0-52.0)
[2021-05-23 10:09] LABS: ALBUMIN 3.3 gm/dL (3.5-5.0); BILIRUBIN,TOTAL 0.6 mg/dL (0.2-1.2); CALCIUM 9.3 mg/dL (8.4-10.2); CREATININE, serum 8.62 mg/dL (0.72-1.25); POTASSIUM 4.5 mmol/L (3.5-4.5); TOTAL PROTEIN 7.6 gm/dL (6.2-8.1)
[2021-05-23] MEDS ORDERED: BONINE25 MG PO (10:35)
[2021-05-23 10:45] VITALS: BP 180/115; PULSE 69
== END 2021-05-23 10:45 | disposition home or self-care (01) ==
LOC: COL.ER 09:19
PROVIDERS: Student in an Organized Health Care Education/Training Program
DX: R42 Dizziness and giddiness (principal); E11.22 Type 2 diabetes mellitus with diabetic chronic kidney disease; N18.6 End stage renal disease; E66.9 Obesity, unspecified; D63.1 Anemia in chronic kidney disease; Z99.2 Dependence on renal dialysis; Z68.35 Body mass index [BMI] 35.0-35.9, adult; Z79.899 Other long term (current) drug therapy

== ENCOUNTER 2021-05-26 09:47 | Observation (INO) | payer BC ==
[~2021-05-26] VITALS: Ht 188 cm; Wt 130.0 kg
[~2021-05-26 09:47] MED LIST changes: +BONINE25 MG PO
[2021-05-26 11:03] LABS: BASO # 0.1 K/mm3 (0.0-0.2); BASO % 0.8 % (0.0-2.0); EOS # 0.4 K/mm3 (0.0-0.7); EOS % 5.1 % (0-4.0); GRAN # 5.4 K/mm3 (1.4-6.5); GRAN % 68.4 % (42.2-75.2); HEMATOCRIT 39.5 % (42.0-52.0); HEMOGLOBIN 13.2 g/dl (13.5-18.0); LYMPH # 1.4 K/mm3 (1.2-3.4); LYMPH % 17.3 % (20.0-51.0); MEAN CELL VOLUME 91 fl (80.0-100.0); MEAN CORPUSCULAR HEMOGLOBIN 30 pg (27.0-31.0); MEAN CORPUSCULAR HGB CONC 33 g/dl (33.0-37.0); MONO # 0.6 K/mm3 (0.1-0.6); PLATELET COUNT 239 K/mm3 (130-400); RED BLOOD COUNT 4.35 M/mm3 (4.20-5.60); REDCELL DISTRIBUTION WIDTH-CV 14.6 % (11.5-14.5)
[2021-05-26 11:16] LABS: ALBUMIN 2.7 gm/dL (3.5-5.0); BILIRUBIN,TOTAL 0.7 mg/dL (0.2-1.2); CALCIUM 8.8 mg/dL (8.4-10.2); CREATININE, serum 9.97 mg/dL (0.72-1.25); MAGNESIUM 1.8 mg/dL (1.6-2.6); POTASSIUM 4.7 mmol/L (3.5-4.5); TOTAL PROTEIN 6.2 gm/dL (6.2-8.1)
[2021-05-26 11:24] LABS: INR 1.1 (0.8-3.0); PROTHROMBIN TIME 12.4 SECONDS (9.7-12.8)
[2021-05-26 19:28] VITALS: BP 185/94; PULSE 81; TEMP 98.4
[2021-05-26 23:31] VITALS: BP 167/102; PULSE 87; TEMP 98
--- NOTE | 2021-05-27 01:48 | NUR ---
Patient arrived surgical floor room 347 around 7pm via wheelchair. Patient A/Ox3. Patient states feling a little dizzy and having some headache. Patient denies chest pain or SOB. Denies N/V at this time. [place] box and ice water provided. Patient tolerated PO food. BP 185/[address] Enamorado and updated high BP. All scheduled meds given per SEP. Patient states he hasn't been taking Coumadin for a while because one of the doctor told him to hold off Coumadin until fix arm fistula. Oriented patient to the room. Patient reports feeling nauseous around midnight. BP 167/102 at midnight. PRN hydralazine and Zofran given. Call light in reach. Will continue to monitor.
[2021-05-27 03:17] VITALS: BP 149/87; PULSE 79; TEMP 97.9
--- NOTE | 2021-05-27 05:52 | NUR ---
BP 149/87 around 4am this morning. Patient ambulate to the bathroom independently. Small urine output x1 noted over the night. Call light in reach. Will continue to monitor.
[2021-05-27 09:15] VITALS: BP 176/97; PULSE 81; TEMP 97.7
[2021-05-27 09:22] LABS: COLLECTION METHOD CLEAN CATCH
[2021-05-27 09:46] LABS: PH 5 (5-8); SQUAMOUS EPITHELIAL 0-2 /hpf; URINE APPEARANCE Cloudy; URINE BACTERIA None Seen /hpf; URINE BILIRUBIN Negative (NEGATIVE); URINE BLOOD 2+ (NEGATIVE); URINE COLOR Yellow; URINE GLUCOSE 1+ (NEGATIVE); URINE KETONE Negative (NEGATIVE); URINE LEUKOCYTE ESTERASE 3+ (NEGATIVE); URINE NITRATE Negative (NEGATIVE); URINE PROTEIN(semi-quant) 3+ (NEGATIVE); URINE RBC >50 /hpf; URINE UROBILINOGEN Negative (NEGATIVE)
[2021-05-27 11:52] VITALS: BP 148/91; PULSE 75; TEMP 97.7
--- NOTE | 2021-05-27 13:49 | NUR ---
Pt inquiring about doing her laundry, explained to patient that this RN and PCT do not have access to the laundry but that the nurse tomorrow may have more answers. Pt crying at this point saying she will just wear her clothes several times and doesn't want to talk about it anymore. States she wants to be left alone. Offered to assist patient into the chair, adamently refuses. Call light within reach.
--- NOTE | 2021-05-27 14:19 | NUR ---
Pt resting in bed, BP high this morning PRN Apresoline administered. Denies any N/V/D. No pain at this time. Call light within reach.
[2021-05-27] MEDS ORDERED: ZOFRAN 4MG T4 MG/TAB PO (14:36)
--- NOTE | 2021-05-27 14:54 | NUR ---
SW met with patient to complete intake. Patient states he lives in [place] and his point of contact is his brother Venu Antonio [phone]. Patient states he does not use DME and is independent with ADL's. Patient states his PCP is [facility], pharmacy is [facility]. Patient provides that he does not have a DPOA-HC and does not wish to appoint anyone at this time. Patient provides that his plan is to return home up on DC and states he has not concerns with doing so. SW will continue to follow. DC Plan: Home
--- NOTE | 2021-05-27 16:35 | NUR ---
IV to RFA dc'd catheter tip intact. Discharge paperwork and instructions reviewed with patient. All questions answered at this time. Awaiting ride at this time.
== END 2021-05-27 17:17 | disposition home or self-care (01) ==
LOC: COL.ER 09:47 → SURG 12:18
PROVIDERS: Physician Assistant; ADMIT Internal Medicine Nephrology
DX: R42 Dizziness and giddiness (principal); R11.10 Vomiting, unspecified; K52.9 Noninfective gastroenteritis and colitis, unspecified; I16.0 Hypertensive urgency; N18.6 End stage renal disease; D63.1 Anemia in chronic kidney disease; E11.22 Type 2 diabetes mellitus with diabetic chronic kidney disease; G89.29 Other chronic pain; M25.569 Pain in unspecified knee; E66.9 Obesity, unspecified; Z99.2 Dependence on renal dialysis; Z79.01 Long term (current) use of anticoagulants
CPT/HCPCS: G0378; J7030

== ENCOUNTER → 2021-06-29 | Outpatient (CLI) | payer SELFPAY ==
[~2021-06-29] MED LIST changes: +ZOFRAN 4MG T4 MG/TAB PO
== END ==
LOC: COL.VAS 12:32
DX: N18.6 End stage renal disease (principal)

== ENCOUNTER 2021-07-01 20:08 | Emergency (ER) | payer SELFPAY ==
[~2021-07-01] VITALS: Ht 188 cm; Wt 127.3 kg
[2021-07-01 21:07] LABS: BASO % 0.5 % (0.0-2.0); EOS # 0.2 K/mm3 (0.0-0.7); EOS % 2.8 % (0-4.0); GRAN # 5.6 K/mm3 (1.4-6.5); HEMATOCRIT 40.7 % (42.0-52.0); HEMOGLOBIN 13.3 g/dl (13.5-18.0); LYMPH # 1.1 K/mm3 (1.2-3.4); LYMPH % 14.3 % (20.0-51.0); MEAN CELL VOLUME 91 fl (80.0-100.0); MEAN CORPUSCULAR HEMOGLOBIN 30 pg (27.0-31.0); MEAN CORPUSCULAR HGB CONC 33 g/dl (33.0-37.0); MEAN PLATELET VOLUME 10.4 fl (7.4-10.4); MONO # 0.5 K/mm3 (0.1-0.6); MONO % 7.1 % (1.7-9.3); PLATELET COUNT 252 K/mm3 (130-400); RED BLOOD COUNT 4.47 M/mm3 (4.20-5.60); REDCELL DISTRIBUTION WIDTH-CV 14.6 % (11.5-14.5)
[2021-07-01 21:23] LABS: ALBUMIN 3.2 gm/dL (3.5-5.0); BILIRUBIN,TOTAL 0.7 mg/dL (0.2-1.2); C-REACTIVE PROTEIN 2.38 mg/dL (0.00-0.50); CREATININE, serum 9.61 mg/dL (0.72-1.25); POTASSIUM 5.4 mmol/L (3.5-4.5); TOTAL PROTEIN 7.3 gm/dL (6.2-8.1)
[2021-07-02 00:35] VITALS: TEMP 97.9
[2021-07-02 02:12] VITALS: BP 189/108; PULSE 80
== END 2021-07-02 02:12 | disposition home or self-care (01) ==
LOC: COL.ER 20:08
PROVIDERS: Nurse Practitioner
DX: E11.22 Type 2 diabetes mellitus with diabetic chronic kidney disease (principal); I12.0 Hypertensive chronic kidney disease with stage 5 chronic kidney disease or end stage renal disease; N18.6 End stage renal disease; K52.9 Noninfective gastroenteritis and colitis, unspecified; Z99.2 Dependence on renal dialysis; Z79.899 Other long term (current) drug therapy
CPT/HCPCS: J0360; J2270; J2405

== ENCOUNTER 2021-07-17 06:12 | Day surgery (SDC) | payer SELFPAY ==
[~2021-07-17] VITALS: Ht 188 cm; Wt 128.4 kg
[2021-07-17] VITALS (8 sets, daily range): BP systolic 151–195; BP diastolic 41–104; PULSE 71–87; TEMP 97.2–97.5
[2021-07-17 07:24] LABS: CALCIUM 8.3 mg/dL (8.4-10.2); CREATININE, serum 7.78 mg/dL (0.72-1.25); POTASSIUM 4.4 mmol/L (3.5-4.5)
--- NOTE | 2021-07-17 07:26 | NUR ---
Notified REDRYING MACHINE OPERATOR, Manpreet Head, of patient's blood pressure.
[2021-07-17] MEDS ORDERED: NORCO 325 MG-51 TAB PO (10:07)
--- NOTE | 2021-07-17 10:23 | NUR ---
Patient reporting operative pain and back pain. PRN norco given per SEP.
--- NOTE | 2021-07-17 10:27 | NUR ---
Patient's blood pressure above parameters. PRN labatolol given per SEP.
--- NOTE | 2021-07-17 10:45 | NUR ---
Patient tolerating pudding and sprite well. States pain is doing better.
--- NOTE | 2021-07-17 11:00 | NUR ---
Notified Dr. Brito of patient's elevated blood pressures. MD will come and see patient.
--- NOTE | 2021-07-17 11:30 | NUR ---
Dr. Brito here to see patient. Patient reports feeling okay. Provider okay'd discharge with current blood pressure.
--- NOTE | 2021-07-17 12:00 | NUR ---
Went through discharge instructions with patient. Questions answered. Verbalized understanding. IV removed without complications. Called brother, Venu, and is on his way here.
--- NOTE | 2021-07-17 12:15 | NUR ---
Patient escorted to patient entrance via wheelchair. Patient's brother met at patient entrance. Patient got into personal vehicle independently and left in the care of his brother.
== END 2021-07-17 12:15 | disposition home or self-care (01) ==
LOC: SDCO 06:12
PROVIDERS: Nurse Anesthetist, Certified Registered
DX: N18.6 End stage renal disease (principal); I10 Essential (primary) hypertension; M19.90 Unspecified osteoarthritis, unspecified site; M10.9 Gout, unspecified; G89.29 Other chronic pain; D64.9 Anemia, unspecified; Z79.01 Long term (current) use of anticoagulants; Z79.899 Other long term (current) drug therapy
CPT/HCPCS: J0360; J0690; J1644; J2405; J2704; J7030

== ENCOUNTER 2021-07-26 16:31 | Observation (INO) | payer SELFPAY ==
[~2021-07-26] VITALS: Ht 188 cm; Wt 124.6 kg
[2021-07-26 17:29] LABS: BASO % 0.7 % (0.0-2.0); EOS # 0.1 K/mm3 (0.0-0.7); EOS % 3.1 % (0.0-4.0); GRAN % 66.5 % (42.2-75.2); HEMATOCRIT 33.6 % (42.0-52.0); HEMOGLOBIN 11.1 g/dl (13.5-18.0); LYMPH # 0.9 K/mm3 (1.2-3.4); LYMPH % 20.7 % (20.0-51.0); MEAN CELL VOLUME 91 fl (80.0-100.0); MEAN CORPUSCULAR HEMOGLOBIN 30 pg (27-31); MEAN CORPUSCULAR HGB CONC 33 g/dl (33.0-37.0); MEAN PLATELET VOLUME 10.2 fl (7.4-10.4); MONO # 0.4 K/mm3 (0.1-0.6); MONO % 8.8 % (1.7-9.3); PLATELET COUNT 217 K/mm3 (130-400); RED BLOOD COUNT 3.68 M/mm3 (4.20-5.60); REDCELL DISTRIBUTION WIDTH-CV 14.5 % (11.5-14.5)
[2021-07-26 17:55] LABS: ALKALINE PHOSPHATASE 53 U/L (40-150); ANION GAP 22 mmol/L (7-16); AST,SGOT 18 U/L (5-34); BILIRUBIN,TOTAL 0.6 mg/dL (0.2-1.2); BLOOD UREA NITROGEN 80 mg/dL (8-26); CALCIUM 8.4 mg/dL (8.4-10.2); CHLORIDE 105 mmol/L (98-107); CREATINE KINASE 619 U/L (30-200); GLUCOSE 81 mg/dL (70-99); LIPASE 13 U/L (8-78); POTASSIUM 5.5 mmol/L (3.5-4.5); SODIUM 140 mmol/L (136-145); TOTAL PROTEIN 6.5 gm/dL (6.2-8.1)
[2021-07-26 18:16] LABS: ALANINE AMINOTRANSFERASE < 6 U/L (0-55); CARBON DIOXIDE 13 mmol/L (22-29); TROPONIN-I 0.054 ng/mL (0.00-0.033)
[2021-07-26 18:30] LABS: CREATININE, serum 13.93 mg/dL (0.72-1.25)
[2021-07-26 22:00] VITALS: BP 164/93; PULSE 75; TEMP 98.1
[2021-07-26 23:23] VITALS: BP 157/83; PULSE 77; TEMP 98.2
--- NOTE | 2021-07-26 23:27 | NUR ---
PT ARRIVED TO FLOOR VIA WHEELCHAIR FROM ED. PT IS PLEASANT, ALERT AND ORIENTATED. PT DENIES PAIN, SOB, OR FEVERS. PT STATES HE JUST FEELS COLD AND UNSURE WHY HE SLEPT ALL DAY. PT HAS A DRESSING OVER DIALYSIS CATH OVER RIGHT CHEST, DRESSING IS C/D/I. PT RIGHT AV FISTULA IS NOTED. SOME PEELING OF SKIN AROUND SITE, FISTULA FELT, THRILL NOTED, BRUIT ASCULATED. WRIST BAND IN PLACE FOR RESTRICTION, DOOR SIGN IN PLACE.
[2021-07-27] VITALS (10 sets, daily range): BP systolic 144–196; BP diastolic 80–106; PULSE 71–84; TEMP 97.8–98.8
--- NOTE | 2021-07-27 04:12 | NUR ---
THIS RN GAVE PRN HYDRALIZINE FOR SBP OF 170.
--- NOTE | 2021-07-27 06:00 | NUR ---
PT HAD AN UNEVENFTUL NIGHT. PT SLEPT MOST OF NIGHT. PT DENIES PAIN, SOB OR ANY COMPLAINTS. PT ATTEMPTING TO GIVE URINE SAMPLE AT THIS TIME. PT REMAINED ON ROOM AIR. PT UNDERSTANDS POC TO UNDERGO DIAYLSIS TODAY TO MAKE UP FOR MISSED DIAYLSIS YESTERDAY. PT BLOOD GLUCOSE LEVELS REMAINED IN THE 80S, MOST RECENT BLOOD SUGAR WAS 81. PT REMAINED ALERT AND ORIENTATED ALL NIGHT WHEN AWAKE. CALL LIGHT IN REACH.
--- NOTE | 2021-07-27 06:06 | NUR ---
PT ABLE TO GIVE URINE SAMPLE. AIDE SENDING TO LAB AT THIS TIME.
[2021-07-27 06:19] LABS: COLLECTION METHOD CLEAN CATCH
[2021-07-27 06:30] LABS: MUCOUS Present (NOT PRESENT); PH 6 (5-8); URINE APPEARANCE Hazy (CLEAR/HAZY); URINE BACTERIA Rare /hpf (NONE SEEN); URINE BILIRUBIN Negative (NEGATIVE); URINE BLOOD 1+ (NEGATIVE); URINE COLOR Yellow (YELLOW); URINE GLUCOSE 1+ (NEGATIVE); URINE KETONE Negative (NEGATIVE); URINE LEUKOCYTE ESTERASE Negative (NEGATIVE); URINE NITRATE Negative (NEGATIVE); URINE PROTEIN(semi-quant) 3+ (NEGATIVE); URINE UROBILINOGEN Negative (NEGATIVE)
--- NOTE | 2021-07-27 09:10 | NUR ---
Pt in dialysis
[2021-07-27 09:55] LABS: BASO % 0.8 % (0.0-2.0); EOS # 0.2 K/mm3 (0.0-0.7); EOS % 4.2 % (0.0-4.0); GRAN # 2.9 K/mm3 (1.4-6.5); GRAN % 58.5 % (42.2-75.2); LYMPH # 1.3 K/mm3 (1.2-3.4); LYMPH % 26.4 % (20.0-51.0); MEAN CELL VOLUME 92 fl (80.0-100.0); MEAN CORPUSCULAR HGB CONC 33 g/dl (33.0-37.0); MEAN PLATELET VOLUME 11.1 fl (7.4-10.4); MONO # 0.5 K/mm3 (0.1-0.6); MONO % 9.7 % (1.7-9.3); PLATELET COUNT 234 K/mm3 (130-400); RED BLOOD COUNT 3.29 M/mm3 (4.20-5.60); REDCELL DISTRIBUTION WIDTH-CV 14.6 % (11.5-14.5)
[2021-07-27 09:57] LABS: HEMATOCRIT 30.2 % (42.0-52.0); HEMOGLOBIN 9.9 g/dl (13.5-18.0); MEAN CORPUSCULAR HEMOGLOBIN 30 pg (27-31)
--- NOTE | 2021-07-27 10:15 | NUR ---
No VTE noted, notified ANN Recio, she is aware
[2021-07-27 10:22] LABS: ALBUMIN 2.6 gm/dL (3.5-5.0); CALCIUM 7.5 mg/dL (8.4-10.2); CREATININE, serum 14.98 mg/dL (0.72-1.25); POTASSIUM 4.8 mmol/L (3.5-4.5)
--- NOTE | 2021-07-27 12:48 | NUR ---
PATIENT TOLERATED HD TX WITH 2L FLUID REMOVAL, C/O RIGHT HAND MILD CRAMPING IN LAST 8 MINS OF TX. NEXT PLANNED HD TX ON Friday07/30/20 @ 0800.
--- NOTE | 2021-07-27 13:00 | NUR ---
Pt back from dialysis. Pt has no complaints, no complaints of pain. Pt eating his lunch.
--- NOTE | 2021-07-27 14:15 | NUR ---
Vital signs checked as he was in dialysis over noon vitals. BP elevated, scheduled medications given as well as PRN for BP. Pt denies any needs, call light within reach
--- NOTE | 2021-07-27 18:38 | NUR ---
Pt resting with eyes closed, pt woke easily for medication. Pt just recently finished eating his dinner. Pt denies any needs, call light within reach
[2021-07-28 04:45] VITALS: BP 178/108; PULSE 73; TEMP 98
--- NOTE | 2021-07-28 05:19 | NUR ---
ASSESSMENT COMPLETE FOR THIS SHIFT. PT COOPERATIVE WITH CARES. PT SITTING ON THE SIDE OF HIS BED LOOKING TROUBLED. I ASKED THE PT IF EVERYTHING WAS OK. PT STATED HE WAS TRYING TO GET HIS [employer] ON THE PHONE SO THAT HE COULD PAY HIS BILL ON TIME AND THAT HIS TV WAS NOT WORKING. I EXPLAINED TO THE PT HOW TO USE THE PHONE AND TRIED TO FIX HIS TV. PT UNABLE TO GET ANYONE FROM THE [employer] ON THE PHONE AND I COULD NOT FIX THE TV. PT MOVED TO [facility] WHICH HAD A WORKING TV. PT SEEMED MUCH HAPPIER THEN. PT DENIES PAIN, PALPITATIONS, SOB OR DIZZINESS. PT'S BLOOD PRESSURE HAS BEEN HIGH THIS SHIFT. AT 1946HRS PT'S BLOOD PRESSURE WAS 196/106. PT GIVEN HIS 1700HRS COREG, HIS SCHEDULED 2100HR BLOOD PRESSURE MEDS AND PRN APRESOLINE. PT'S B/P DROPPED TO 181/95 AN HOUR LATER. AND FURTHER DOWN TO 163/85 AN HOUR AFTER THAT. I ATTEMPTED TO CALL ANN COCHRAN WITH NO SUCCESS, TO KEEP HER INFORMED. PT'S B/P WAS ELEVATED AGAIN TO 178/108 AT 0445HRS. APRESOLINE GIVEN. WILL CONTINUE TO MONITOR. PT STATES HE HAS NO OTHER NEEDS AT THIS TIME. CALL LIGHT WITHIN REACH.
[2021-07-28 07:47] VITALS: BP 164/95; PULSE 80; TEMP 97.6
[2021-07-28 07:49] LABS: BASO % 0.5 % (0.0-2.0); EOS # 0.2 K/mm3 (0.0-0.7); EOS % 4.4 % (0.0-4.0); GRAN % 48.8 % (42.2-75.2); LYMPH # 1.4 K/mm3 (1.2-3.4); LYMPH % 33.2 % (20.0-51.0); MEAN CELL VOLUME 93 fl (80.0-100.0); MEAN CORPUSCULAR HEMOGLOBIN 30 pg (27-31); MEAN CORPUSCULAR HGB CONC 33 g/dl (33.0-37.0); MEAN PLATELET VOLUME 10.6 fl (7.4-10.4); MONO # 0.5 K/mm3 (0.1-0.6); MONO % 12.9 % (1.7-9.3); PLATELET COUNT 229 K/mm3 (130-400); RED BLOOD COUNT 3.29 M/mm3 (4.20-5.60); REDCELL DISTRIBUTION WIDTH-CV 14.7 % (11.5-14.5)
--- NOTE | 2021-07-28 08:00 | NUR ---
Patient sitting up the edge of bed eating breakfast. A&Ox4. VSS. IV CDI, Fistula CDI. Denies pain and discomfort. No further needs expressed. Call light within reach
[2021-07-28 08:05] LABS: HEMATOCRIT 30.7 % (42.0-52.0)
[2021-07-28 08:06] LABS: ALBUMIN 2.7 gm/dL (3.5-5.0); CREATININE, serum 11.44 mg/dL (0.72-1.25); PHOSPHOROUS 6.2 mg/dL (2.3-4.7); POTASSIUM 4.1 mmol/L (3.5-4.5)
[2021-07-28] MEDS ORDERED: HYTRIN 1MG C1 MG/CAP PO (10:46)
--- NOTE | 2021-07-28 11:39 | NUR ---
Discharge paperwork reveiwed with the patient. Patient verbalzied an understanding to follow doctors orders. IV removed, tip intact. Patient waiting on lunch and go van go for a ride to dialysis. No further needs expressed. Call light within reach
--- NOTE | 2021-07-28 11:57 | NUR ---
Plan is to return home with brother Saima . Phone is disconnected. Patient reports that he resides locally and care for himself. Patient was informed of pending DC. Patient reports that he does not have a ride home and no way to contact his brother. Patient was offered taci voucher to get home. Patient was also coordinated with Dialysis to arrive around 1:15. Taxi is to transport at 12:30 p.m. Notified patient and nurse. Patient reports PCP is Dr. Gaitan, and Jarvis is preferred Rx. Patient indicated that he can walk okay and has not other concerns at this time.
--- NOTE | 2021-07-28 12:40 | NUR ---
Patient taken by wheelchair to the ED entrance to waiting go van go. Discharge paperwork and personal belongings with the patient. No further needs expressed.
== END 2021-07-28 12:40 | disposition home or self-care (01) ==
LOC: COL.ER 16:31 → MEDICAL 20:38
PROVIDERS: Emergency Medicine; ADMIT Internal Medicine Nephrology
DX: E16.2 Hypoglycemia, unspecified (principal); N18.6 End stage renal disease; E83.39 Other disorders of phosphorus metabolism; I12.0 Hypertensive chronic kidney disease with stage 5 chronic kidney disease or end stage renal disease; M10.069 Idiopathic gout, unspecified knee; E11.65 Type 2 diabetes mellitus with hyperglycemia; G89.29 Other chronic pain; R60.9 Edema, unspecified; E66.9 Obesity, unspecified; D63.1 Anemia in chronic kidney disease; E11.22 Type 2 diabetes mellitus with diabetic chronic kidney disease; Z89.422 Acquired absence of other left toe(s); Z99.2 Dependence on renal dialysis
CPT/HCPCS: G0378; J1644; J7030; Q5105

== ENCOUNTER 2021-11-09 10:52 | Day surgery (SDC) | payer MEDICARE, BC ==
[~2021-11-09] VITALS: Ht 188 cm; Wt 126.5 kg
[~2021-11-09 10:52] MED LIST changes: +HYTRIN 1MG C1 MG/CAP PO
[2021-11-09] MEDS ORDERED: SODIUM BICARBO650 MG PO (11:38)
[2021-11-09] MEDS ORDERED: HYTRIN 2MG CAPSU2 MG PO (11:38)
[2021-11-09 11:59] VITALS: BP 179/98; PULSE 73; TEMP 98.7
--- NOTE | 2021-11-09 12:03 | NUR ---
PATIENT HAS AV FISTULA ON THE RIGHT WRIST WITH THRILL NOTED. HAS FAILED FISTULA ON THE LEFT AC. DR. GREGORIO NOTIFIED AND MAY USE THE LEFT ARM FOR IV START.
[2021-11-09 13:41] LABS: CALCIUM 9.2 mg/dL (8.4-10.2); CREATININE, serum 10.07 mg/dL (0.72-1.25); POTASSIUM 4.2 mmol/L (3.5-4.5)
[2021-11-09 15:16] VITALS: TEMP 97.9
[2021-11-09 16:05] VITALS: BP 172/92; PULSE 63
--- NOTE | 2021-11-09 16:05 | NUR ---
PATIENT RETURNS TO ROOM 1 PER CART FROM PACU AND IS ALERT AND ORIENTED X3. EXOFIN SKIN GLUE NOTED TO THE RIGHT FOREARM. THRILL NOTED ON THE RIGHT WRIST. DRINKING WATER. ROOM AIR SATS 98% AND TEMP 97.9. IV FLUIDS INFUSING.
[2021-11-09 16:20] VITALS: BP 171/84; PULSE 63
--- NOTE | 2021-11-09 16:20 | NUR ---
EATING SNACK. DENIES PAIN OR NAUSEA.
[2021-11-09 16:35] VITALS: BP 178/99; PULSE 81
--- NOTE | 2021-11-09 16:35 | NUR ---
IV DISCONTINUED AND SITE IS FREE OF REDNESS OR SWELLING. GIVEN DISMISSAL INSTRUCTIONS AND VOICES UNDERSTANDING OF THESE. ASSISTED WITH DRESSING.
--- NOTE | 2021-11-09 16:40 | NUR ---
DISMISSAL INSTRUCTIONS SIGNED. RIDE IS HERE. ASSISTED INTO WHEELCHAIR AND DISMISSED TO HOME DRIVEN BY BROTHER AND TAKEN TO THE VEHICLE PER WHEELCHAIR AND ASSISTED INTO CAR WITH INSTRUCTIONS IN HAND BY NATALEE MARTI.
== END 2021-11-09 16:40 | disposition home or self-care (01) ==
LOC: SDCO 10:52
PROVIDERS: Registered Nurse
DX: T82.898A Other specified complication of vascular prosthetic devices, implants and grafts, initial encounter (principal); N18.6 End stage renal disease; Z99.2 Dependence on renal dialysis
CPT/HCPCS: J0360; J0690; J2405; J2704; J3010; J7120

== ENCOUNTER → 2022-03-01 | Outpatient (CLI) | payer MEDICARE, BC ==
[~2022-03-01] VITALS: Ht 188 cm; Wt 132.1 kg
[~2022-03-01] MED LIST changes: +FOSRENOL500 MG PO; +HYTRIN 2MG CAPSU2 MG PO; +HYTRIN 5MG C5 MG/CAP PO; +SODIUM BICARBO650 MG PO
[2022-03-01 08:41] VITALS: BP 199/119; PULSE 72; TEMP 98.5
[2022-03-01 10:00] VITALS: BP 186/107; PULSE 62
== END ==
LOC: COL.RAD 08:05
DX: Z49.01 Encounter for fitting and adjustment of extracorporeal dialysis catheter (principal)

== ENCOUNTER 2022-04-04 20:20 | Inpatient (IN) | payer MEDICARE, BC ==
[~2022-04-04] VITALS: Ht 188 cm; Wt 129.9 kg
[2022-04-04 20:59] LABS: BASO % 0.5 % (0.0-2.0); EOS # 0.1 K/mm3 (0.0-0.7); EOS % 1.4 % (0.0-4.0); GRAN # 4.7 K/mm3 (1.4-6.5); GRAN % 75.8 % (42.2-75.2); HEMOGLOBIN 10.8 g/dl (13.5-18.0); LYMPH # 0.7 K/mm3 (1.2-3.4); LYMPH % 10.5 % (20.0-51.0); MEAN CELL VOLUME 93 fl (80.0-100.0); MEAN CORPUSCULAR HEMOGLOBIN 31 pg (27-31); MEAN CORPUSCULAR HGB CONC 33 g/dl (33.0-37.0); MEAN PLATELET VOLUME 10.5 fl (7.4-10.4); MONO # 0.7 K/mm3 (0.1-0.6); MONO % 11.6 % (1.7-9.3); PLATELET COUNT 147 K/mm3 (130-400); RED BLOOD COUNT 3.54 M/mm3 (4.20-5.60); REDCELL DISTRIBUTION WIDTH-CV 13.4 % (11.5-14.5)
[2022-04-04 21:17] LABS: ALBUMIN 3.8 gm/dL (3.5-5.0); BILIRUBIN,TOTAL 0.8 mg/dL (0.2-1.2); C-REACTIVE PROTEIN 4.25 mg/dL (0.00-0.50); CALCIUM 9.9 mg/dL (8.4-10.2); CREATININE, serum 8.45 mg/dL (0.72-1.25); POTASSIUM 3.8 mmol/L (3.5-4.5); TOTAL PROTEIN 8.1 gm/dL (6.2-8.1)
[2022-04-04 21:24] LABS: TROPONIN-I 0.083 ng/mL (0.00-0.033)
--- NOTE | 2022-04-04 23:31 | NUR ---
Patient arrived to medical unit from ER at this time.
[2022-04-05] VITALS (8 sets, daily range): BP systolic 157–222; BP diastolic 73–115; PULSE 82–94; TEMP 98–100
--- NOTE | 2022-04-05 01:31 | NUR ---
Patient denies having pain and discomfort. Peripheral INT to left AC. Receiving IV ABX. Reports feeling cold. Patient afebrile at this time. AV fistula to right forearm, has dressing to site due to HD yesterday. Patient given food and fluids as requested. In bed with call light within reach.
--- NOTE | 2022-04-05 04:53 | NUR ---
Patient's BP elevated. Called Dr. Enamorado, new order for Appresoline 25 mg PO Q4H PRN. A few minutes later, patient was having emesis. Called Dr. Enamorado again, new order for Appresoline 10 mg IV Q4H PRN systolic BP greater than 170, and Hank 4 mg IV Q4H PRN. Given per orders. Patient denies pain and discomfort, except for feeling cold. Temperature 98.5. Voices no further questions, needs, or concerns at this time. In bed with call light within reach.
--- NOTE | 2022-04-05 10:09 | NUR ---
Initial visit; Patient appeared somewhat vague though did thank Manager Ent for visit. He declined Spiritual Care at this time.
--- NOTE | 2022-04-05 10:09 | NUR ---
Nibbler Operator met with patient to discuss discharge planning. Patient lives alone in [place] and sees Dr. Guillen for primary care. Patient obtains medications from [facility] with no difficulties. Patient does not use any DME and reports independence with ADLS. Patient does not have Advance Directives and is not interested in setting up DPOA-HC at this time. Patient is not , has no children, and his parents are . Patient has two siblings: Venu (ph#[phone]) and Monica Hernandez. Patient stated Venu lives in [place]. Patient plans to return home at time of discharge. Discharge Plan: Home
[2022-04-05 10:48] LABS: ALBUMIN 3.3 gm/dL (3.5-5.0); CALCIUM 9.2 mg/dL (8.4-10.2); CREATININE, serum 11.04 mg/dL (0.72-1.25); PHOSPHOROUS 3.5 mg/dL (2.3-4.7); POTASSIUM 4.4 mmol/L (3.5-4.5)
--- NOTE | 2022-04-05 15:15 | NUR ---
CALLED TO CLARIFY ABOUT THE CLONIDINE TABLET ADMINISTATION AND ALSO TO GIVE UPDATE ON PT CURRENT CONDITION IN REGARDS TO HYPETENSION BUT DR. COCHRAN DIDNT ANSWER THE PHONE.
--- NOTE | 2022-04-05 17:00 | NUR ---
CALLED AND NOTIFIED ABOUT PT CONDITION, UNCONTROLLED BP,FEVER OF 100F, LOW O2 PT CURRENTLY ON 02 3LTS VIA SC, SAID HE WOULD LOOK INTO PT CHART AND MAKE NECCESSARY ADJUSTMENTS.
--- NOTE | 2022-04-05 19:09 | NUR ---
PT ALERT AND ORIENT X4, BP UNCONTROLLED, AWARE.PT CURRENTLY ON O2 3LTS VIA NC. PT ABLE TO TAKE ALL OTHER PRESCRIBED MEDICATION.C/O OF CHILLS, DENIES COMPLAINTS OF PAINS STATES THAT HE JUST FEELS UNEASY.
--- NOTE | 2022-04-05 20:30 | NUR ---
Pt lying down in bed, on right side. A&O x4. VSS. Shift assessment completed. Pt doesn't voice any concerns or needs at this moment. Tele on. On nasal cannula at 3L. Fistula on Right foream, bruit palpable, CDI. Right arm rstriction. Dinner tray was intact, pt stated he was done eating. Waiting on UA sample collection. Call light within reach.
--- NOTE | 2022-04-05 23:07 | NUR ---
Patient's BP 205/96. Given PRN Appresoline 50 mg po.
[2022-04-06] VITALS (7 sets, daily range): BP systolic 133–199; BP diastolic 69–107; PULSE 77–92; TEMP 98.4–99.8
--- NOTE | 2022-04-06 00:50 | NUR ---
BP: 181/86. Clonidine administrated.
--- NOTE | 2022-04-06 04:30 | NUR ---
BP 188/89, Apresoline administrated. Pt expressess desire to use the urinal. Call light within reach.
[2022-04-06 06:49] LABS: BASO % 0.4 % (0.0-2.0); EOS # 0.1 K/mm3 (0.0-0.7); EOS % 1.6 % (0.0-4.0); GRAN # 4.2 K/mm3 (1.4-6.5); GRAN % 77.5 % (42.2-75.2); LYMPH # 0.5 K/mm3 (1.2-3.4); LYMPH % 9.7 % (20.0-51.0); MEAN CELL VOLUME 95 fl (80.0-100.0); MEAN CORPUSCULAR HGB CONC 32 g/dl (33.0-37.0); MEAN PLATELET VOLUME 10.8 fl (7.4-10.4); MONO # 0.6 K/mm3 (0.1-0.6); MONO % 10.1 % (1.7-9.3); PLATELET COUNT 164 K/mm3 (130-400); RED BLOOD COUNT 3.14 M/mm3 (4.20-5.60); REDCELL DISTRIBUTION WIDTH-CV 13.7 % (11.5-14.5)
[2022-04-06 06:51] LABS: HEMATOCRIT 29.9 % (42.0-52.0); HEMOGLOBIN 9.7 g/dl (13.5-18.0); MEAN CORPUSCULAR HEMOGLOBIN 31 pg (27-31)
[2022-04-06 07:06] LABS: ALBUMIN 3.1 gm/dL (3.5-5.0); CALCIUM 8.8 mg/dL (8.4-10.2); CREATININE, serum 13.92 mg/dL (0.72-1.25); PHOSPHOROUS 4.9 mg/dL (2.3-4.7); POTASSIUM 4.4 mmol/L (3.5-4.5)
--- NOTE | 2022-04-06 12:00 | NUR ---
pt off to dialysis
--- NOTE | 2022-04-06 12:25 | NUR ---
Slot Machine Key Person rounds: Slot Machine Key Person visit attempted. Patient declined visit, but accepted prayer. Slot Machine Key Person prayed for Patient.
--- NOTE | 2022-04-06 18:31 | NUR ---
PT HAD A GOOD DAY, BP STILL UNSTABLE, ON O2 VIA N.C. ALL DUE MEDICATION GIVEN PRESCRIBED ALL WELL TOLARATED WITH OUT ADVERSE REACTION. HEMODIALYSIS DONE FOR 4 HRS UF 5 LTS.C/O CHIILS, LOW GRADE FEVER NOTED X1 DURING THE DAY.PT ALERT AND ORIENT X4.
--- NOTE | 2022-04-06 19:37 | NUR ---
PATIENT STATES HE JUST RETURNED BACK TO HIS ROOM FROM DIALYSIS. HE STATES HE IS JUST TRYING TO GET WARM, PATIENT REFUSES WARM BLANKET. PATIENT REQUESTS HIS TYLENOL AND THIS NURSE ADVISES SHE WILL RETURN WITH TYLENOL. CALL LIGHT IS WITHIN REACH OF PATIENT AND PATIENT IS ENCOURAGED TO USE WITH ANY NEEDS OR CONCERNS. PATIENT STATES UNDERSTANDING.
[2022-04-07 04:14] VITALS: BP 170/82; PULSE 79; TEMP 99
--- NOTE | 2022-04-07 06:17 | NUR ---
PATIENT HAS HAD AN UNEVENTFUL NIGHT. PATIENT IS LAYING IN BED WITH EYES CLOSED AND CALL LIGHT WITHIN REACH. PATIENT DENIES ANY NEEDS OR CONCERNS AT THIS TIME. PATIENT ENCOURAGED TO USE CALL LIG WITH NEEDS OR CONCERNS.
[2022-04-07 06:34] LABS: EOS # 0.2 K/mm3 (0.0-0.7); EOS % 5.2 % (0.0-4.0); GRAN # 2.7 K/mm3 (1.4-6.5); LYMPH # 0.5 K/mm3 (1.2-3.4); LYMPH % 11.4 % (20.0-51.0); MEAN CELL VOLUME 93 fl (80.0-100.0); MEAN CORPUSCULAR HGB CONC 33 g/dl (33.0-37.0); MEAN PLATELET VOLUME 10.4 fl (7.4-10.4); MONO # 0.6 K/mm3 (0.1-0.6); MONO % 14.2 % (1.7-9.3); PLATELET COUNT 181 K/mm3 (130-400); REDCELL DISTRIBUTION WIDTH-CV 13.6 % (11.5-14.5)
[2022-04-07 06:48] LABS: HEMATOCRIT 29.9 % (42.0-52.0); HEMOGLOBIN 9.8 g/dl (13.5-18.0); MEAN CORPUSCULAR HEMOGLOBIN 31 pg (27-31)
[2022-04-07 06:53] LABS: ALBUMIN 2.9 gm/dL (3.5-5.0); CALCIUM 8.8 mg/dL (8.4-10.2); CREATININE, serum 11.96 mg/dL (0.72-1.25); PHOSPHOROUS 4.8 mg/dL (2.3-4.7); POTASSIUM 4.1 mmol/L (3.5-4.5)
[2022-04-07 07:17] VITALS: BP 167/88; PULSE 82; TEMP 99.2
--- NOTE | 2022-04-07 08:44 | NUR ---
Pt assessment complete. Pt is sitting up on the side of the bed upon entry, he is A/O x4. His breathing is even and unlabored on RA. Pt denies SOB. Pt reports a [place], and seems to have sharp pains as he intermittently is wincing. PRN Tylenol administered. Pt denies any N/V. Good appetite. No further needs at this time. Call light within reach.
[2022-04-07 11:45] VITALS: BP 156/77; PULSE 75; TEMP 99.1
[2022-04-07 15:19] VITALS: PULSE 78; TEMP 99.3
[2022-04-07 16:26] VITALS: BP 170/85
--- NOTE | 2022-04-07 18:55 | NUR ---
Pt had uneventful day. Only pain patient reported was a headache. IVF infusing per orders. Tele in place. POC discussed with patient who verbalizes understanding.
--- NOTE | 2022-04-07 18:57 | NUR ---
Pt had uneventful day. Sat up on the side of the bed most of the day. Complained of a continued headache. POC discussed with patient who verbalizes understanding. No needs at this time.
--- NOTE | 2022-04-07 19:07 | NUR ---
PATIENT IS LAYING IN BED WATCHING TELEVISION. PATIENT DENIES PAIN, NEEDS OR CONCERNS AT THIS TIME. PATIENT HAS CALL LIGHT WITHIN REACH AND IS ENCOURAGED TO CALL WITH ANY NEEDS OR CONCERNS.
[2022-04-07 20:12] VITALS: BP 169/73; PULSE 80; TEMP 99.6
[2022-04-08] VITALS (9 sets, daily range): BP systolic 163–195; BP diastolic 72–88; PULSE 74–85; TEMP 97.8–100.4
--- NOTE | 2022-04-08 05:19 | NUR ---
PATIENT HAS BEEN RUNNING A TEMPERATURE IN THE 99'S ALL SHIFT. PATIENT DENIES PAIN, NEEDS OR CONCERNS. TELEMETRY PADS CONTINUED TO FALL OFF PATIENT ALL EVENING. PADS REPLACED X 2. PATIENT HAS CALL LIGHT WITHIN REACH.
[2022-04-08 06:45] LABS: ALBUMIN 2.8 gm/dL (3.5-5.0); CALCIUM 8.6 mg/dL (8.4-10.2); CREATININE, serum 15.14 mg/dL (0.72-1.25); PHOSPHOROUS 5.2 mg/dL (2.3-4.7); POTASSIUM 3.9 mmol/L (3.5-4.5)
[2022-04-08 06:48] LABS: BASO % 0.8 % (0.0-2.0); EOS # 0.4 K/mm3 (0.0-0.7); EOS % 10.7 % (0.0-4.0); GRAN % 57.5 % (42.2-75.2); LYMPH # 0.6 K/mm3 (1.2-3.4); LYMPH % 16.3 % (20.0-51.0); MEAN CELL VOLUME 96 fl (80.0-100.0); MEAN CORPUSCULAR HGB CONC 33 g/dl (33.0-37.0); MEAN PLATELET VOLUME 10.8 fl (7.4-10.4); MONO # 0.5 K/mm3 (0.1-0.6); MONO % 14.1 % (1.7-9.3); PLATELET COUNT 207 K/mm3 (130-400); RED BLOOD COUNT 3.14 M/mm3 (4.20-5.60); REDCELL DISTRIBUTION WIDTH-CV 13.6 % (11.5-14.5)
--- NOTE | 2022-04-08 07:07 | NUR ---
PRN tylenol given for intermittent headache.
[2022-04-08 07:08] LABS: HEMATOCRIT 30.2 % (42.0-52.0); HEMOGLOBIN 9.8 g/dl (13.5-18.0); MEAN CORPUSCULAR HEMOGLOBIN 31 pg (27-31)
--- NOTE | 2022-04-08 08:02 | NUR ---
RACHEL Strong contacted in regards to patient's 05/06 intermittent sharp head pain. Per patient, pain does not radiate and has been coming and going since 04/05.
--- NOTE | 2022-04-08 10:03 | NUR ---
Scheduled medications given. Shift assessment preformed. Patient A&O. Patient HTN, patient's scheduled BP medications given. Remainder of VSS. RACHEL Strong contacted in regards to patient's 10/10 intermittent sharp head pain. Verbal order recieved for PRN tramadol. Order entered and administered. Patient currently requiring 3L of O2 via nasal cannula. Patient denies any further pain, discomfort, SOA, or further needs a this time. Right arm restrict enforced. Call light in reach.
--- NOTE | 2022-04-08 13:21 | NUR ---
Dr. Enamorado contacted in regards to unrelieved headache. Patient continues to describe pain as 10/10 sharp "brain zings". Verbal order for dilaudid recieved.
--- NOTE | 2022-04-08 18:00 | NUR ---
PRN TYLENOL GIVEN FOR TEMP OF 100.00, APRESONLINE GIVEN FOR BP OVER 170. UPON RECHECK OF TEMPERATURE, IT READ 98.3. UNABLE TO GET NEW IV STARTED ON PATIENT. DR. MCGRATH INFORMED AND THIS RN GOT PERMISSION TO NOT START A NEW IV. DR LEE CONTACTED ABOUT ABX. IV ABX SWITCHED TO ORAL. PATIENT DENIES ANY FURTHER NEEDS AT THIS TIME. CALL LIGHT IN REACH.
[2022-04-09 04:16] VITALS: BP 161/88; PULSE 71; TEMP 98.8
[2022-04-09 06:34] LABS: BASO % 0.7 % (0.0-2.0); EOS # 0.4 K/mm3 (0.0-0.7); EOS % 9.9 % (0.0-4.0); GRAN # 2.4 K/mm3 (1.4-6.5); LYMPH # 0.8 K/mm3 (1.2-3.4); LYMPH % 18.9 % (20.0-51.0); MEAN CELL VOLUME 93 fl (80.0-100.0); MEAN CORPUSCULAR HGB CONC 33 g/dl (33.0-37.0); MEAN PLATELET VOLUME 10.5 fl (7.4-10.4); MONO # 0.6 K/mm3 (0.1-0.6); PLATELET COUNT 249 K/mm3 (130-400); REDCELL DISTRIBUTION WIDTH-CV 13.5 % (11.5-14.5)
[2022-04-09 06:37] LABS: HEMATOCRIT 27.1 % (42.0-52.0); HEMOGLOBIN 8.9 g/dl (13.5-18.0); MEAN CORPUSCULAR HEMOGLOBIN 31 pg (27-31)
[2022-04-09 06:43] LABS: ALBUMIN 2.7 gm/dL (3.5-5.0); CALCIUM 8.3 mg/dL (8.4-10.2); CREATININE, serum 17.93 mg/dL (0.72-1.25); PHOSPHOROUS 6.1 mg/dL (2.3-4.7); POTASSIUM 4.3 mmol/L (3.5-4.5)
[2022-04-09 07:00] VITALS: BP 154/86; PULSE 110; TEMP 98.6
--- NOTE | 2022-04-09 08:26 | NUR ---
Upon doing shift assessment, patient's heart rythm presented as irregular. Tele called to confirm, shipping room supervisor suspected Aflutter, EKG order placed.
[2022-04-09 14:12] VITALS: BP 149/79; PULSE 85; TEMP 99.9
[2022-04-09 16:31] VITALS: BP 126/74; PULSE 116; TEMP 98.6
--- NOTE | 2022-04-09 18:00 | NUR ---
Scheduled medications. Shift assessment preformed. Tele on per orders. New IV started in left forearm by [facility]. PRN tylenol given once for fever. Patient is currenltly resting in bed. Currently requiring 3L of O2 via nasal cannula. Denies any pain, disocmfort, SOA, or further needs at this time. Call light in reach.
[2022-04-09 20:09] VITALS: BP 154/82; PULSE 82; TEMP 99.6
[2022-04-09 23:39] VITALS: BP 153/78; PULSE 78; TEMP 98.5
[2022-04-10] VITALS (7 sets, daily range): BP systolic 137–175; BP diastolic 61–89; PULSE 70–83; TEMP 98–99.3
[2022-04-10 06:37] LABS: MEAN CELL VOLUME 94 fl (80.0-100.0); MEAN CORPUSCULAR HGB CONC 33 g/dl (33.0-37.0); MEAN PLATELET VOLUME 10.6 fl (7.4-10.4); PLATELET COUNT 286 K/mm3 (130-400); RED BLOOD COUNT 3.14 M/mm3 (4.20-5.60); REDCELL DISTRIBUTION WIDTH-CV 13.6 % (11.5-14.5)
[2022-04-10 06:41] LABS: HEMATOCRIT 29.5 % (42.0-52.0); HEMOGLOBIN 9.7 g/dl (13.5-18.0); MEAN CORPUSCULAR HEMOGLOBIN 31 pg (27-31)
[2022-04-10 07:09] LABS: BAND 3 % (0-10); BASOPHIL 3 % (0-2); EOSINOPHIL 13 % (0-4)
[2022-04-10 07:10] LABS: LYMPHOCYTE 17 % (20.0-51.0); NEUTROPHILS 56 % (42.0-75.2); PLATELET ESTIMATE NORMAL (NORMAL)
[2022-04-10] MEDS ORDERED: CORDARONE200 MG/TAB PO (11:32)
--- NOTE | 2022-04-10 15:43 | NUR ---
Open Hearth Furnace Operator Helper contacted patient by room phone to review discharge plan. Patient advised he is doing okay and still plans to return home at time of discharge.
--- NOTE | 2022-04-10 18:29 | NUR ---
Shift assessment preformed. Scheduled oral medications given by CHHAYA Bryant. IV medications given by this RN. PRN BP medication given once this shift. Remainder of VSS. Patient A&O. Currently requiring 3L of O2 via nasal cannula. Education on Eliquis given. All questions answered. Patient denies any pain, discomfort, SOA, or further needs at this time. Call light in reach.
[2022-04-11 03:32] VITALS: BP 167/83; PULSE 70; TEMP 98
[2022-04-11 07:24] VITALS: BP 152/84; PULSE 66; TEMP 98.4
--- NOTE | 2022-04-11 07:45 | NUR ---
PT AWAKE LYING IN BED, DENIES COMPLAINTS.BREAKFAST ORDERED.
[2022-04-11] MEDS ORDERED: ELIQUIS 5MG PO (10:03)
[2022-04-11] MEDS ORDERED: FIORICET 325 MG1 TA1 PO (10:05)
[2022-04-11 10:11] LABS: MEAN CELL VOLUME 92 fl (80.0-100.0); MEAN CORPUSCULAR HGB CONC 33 g/dl (33.0-37.0); MEAN PLATELET VOLUME 10.7 fl (7.4-10.4); PLATELET COUNT 333 K/mm3 (130-400); RED BLOOD COUNT 3.17 M/mm3 (4.20-5.60); REDCELL DISTRIBUTION WIDTH-CV 13.6 % (11.5-14.5)
[2022-04-11 10:14] LABS: HEMATOCRIT 29.3 % (42.0-52.0); HEMOGLOBIN 9.6 g/dl (13.5-18.0); MEAN CORPUSCULAR HEMOGLOBIN 30 pg (27-31)
[2022-04-11 10:23] LABS: CALCIUM 9.2 mg/dL (8.4-10.2); CREATININE, serum 17.56 mg/dL (0.72-1.25)
[2022-04-11 10:32] LABS: BAND 2 % (0-10); BASOPHIL 1 % (0-2); EOSINOPHIL 16 % (0-4); LYMPHOCYTE 20 % (20.0-51.0); NEUTROPHILS 49 % (42.0-75.2); PLATELET ESTIMATE NORMAL (NORMAL)
--- NOTE | 2022-04-11 11:16 | NUR ---
Loan Interviewer collaborated with ANN Strong who advised patient will discharge home today. Patient's car is at the [facility] and he will need a ride there. TIAGO provided RN with a taxi voucher. SW met with patient in dialysis and presented IM form. Patient verbalized understanding and gave verbal consent as signature as he could not sign while receiving dialysis. Exercise Oximetry ordered as patient has been on oxygen however does not have it set up at home.
--- NOTE | 2022-04-11 12:00 | NUR ---
PT VSS, ALERT AND ORIENT X1, DUE MED GIVEN ALL WELL TOLARATED, DENIES COMPLAINTS INCLUDING PAIN. PT DC FROM THE UNIT TO [facility], TELE REMOVED, IV REMOVED TIP INTACT, PT ACCOMPANIED TO [facility] BY [facility] STAFF, DISCHARGE SUMMARY GIVEN TO THE [facility] STAFF TO TAKE TO THE RN.REPORT TO BE CALLED TO [facility].PT AMBULATORY WITH A WHEEL CHAIR.
[2022-04-11 13:20] VITALS: BP 166/76; PULSE 73; TEMP 98.7
--- NOTE | 2022-04-11 14:30 | NUR ---
PATIENT DOES NOT REQUIRE O2 WITH AMBULATION
--- NOTE | 2022-04-11 17:00 | NUR ---
PT HAD A CALM DAY, VSS, ALERT AND ORIENT X4, DUE MEDS GIVEN, HD DONE TODAY IN MORNING.PT DENIES ALL COMPLAINTS INCLUDING PAIN.PT D/C FROM UNIT TO GO HOME AFTER DIALYSIS, TELE REMOVED , I.V REMOVED TIP INTACT, DISCHARGED SUMMARY PROVIDED AND INSTRUCTION ON MEDS AND FOLLOW UP APPOINTMENTS GIVEN PT VERBALIZE UNDESTANDING, TRANSPORTATION ORGANIZED BY TIAGO PT WILL TAKE A RIDE TO [facility] AND WILL DRIVE SELF HOME.
== END 2022-04-11 17:00 | disposition home or self-care (01) | DRG 193 ==
LOC: COL.ER 20:20 → MEDICAL 23:01
PROVIDERS: Emergency Medicine; Registered Nurse; ADMIT Internal Medicine Nephrology
PROC: 5A1D70Z Performance of Urinary Filtration, Intermittent, Less than 6 Hours Per Day (ICD-10-PCS; principal; 2022-04-06)
DX: J18.9 Pneumonia, unspecified organism (principal); N18.6 End stage renal disease; I48.92 Unspecified atrial flutter; M10.9 Gout, unspecified; E11.22 Type 2 diabetes mellitus with diabetic chronic kidney disease; G89.29 Other chronic pain; M25.569 Pain in unspecified knee; E66.9 Obesity, unspecified; D63.1 Anemia in chronic kidney disease; R09.02 Hypoxemia; Z20.822 Contact with and (suspected) exposure to COVID-19; I16.0 Hypertensive urgency; E83.39 Other disorders of phosphorus metabolism; R51.9 Headache, unspecified; I48.91 Unspecified atrial fibrillation; K44.9 Diaphragmatic hernia without obstruction or gangrene; I34.0 Nonrheumatic mitral (valve) insufficiency; I44.0 Atrioventricular block, first degree; Z89.422 Acquired absence of other left toe(s); Z99.2 Dependence on renal dialysis; Z68.37 Body mass index [BMI] 37.0-37.9, adult
CPT/HCPCS: J0282; J0360; J1170; J1650; J2405; J2543; J3370; J7050; J7060; Q5105

== ENCOUNTER 2023-03-25 09:53 | Outpatient (CLI) | payer MEDICARE, BC ==
[~2023-03-25] VITALS: Ht 188 cm; Wt 123.7 kg
[2023-03-25] VITALS (7 sets, daily range): BP systolic 150–180; BP diastolic 76–112; PULSE 72–105; TEMP 98.8
[~2023-03-25 09:53] MED LIST changes: +CEFTIN500 MG PO; +CORDARONE200 MG/TAB PO; +COUMADIN 5MG5 MG/TAB PO; +ELIQUIS 2.5 PO; +ELIQUIS 5MG PO; +FIORICET 325 MG1 TA1 PO; +MONODOX100 PO
[2023-03-25] MEDS ORDERED: CARTIA XT180 MG PO (10:19)
[2023-03-25] MEDS ORDERED: COUMADIN 22.5 MG/TAB PO (10:48)
[2023-03-25] MEDS ORDERED: FOSRENOL1000 MG PO (10:49)
[2023-03-25] MEDS ORDERED: SULAR34 MG PO (10:51)
--- NOTE | 2023-03-25 12:10 | NUR ---
Please see merge documentation for record of interventions, vitals and medications administered during procedure.
--- NOTE | 2023-03-25 15:31 | NUR ---
Pt arrived to [facility] by wheelchair. Meds and HX reviewed. IV started. Consent form for the procedure was signed. No questions or concerns at this time. Post-procedure the pt came back to [facility] and recovered with us for about an hour and a half. Pt was offered something to eat and drink, only wanted a sprite. At time of discharge, education and discharge information were given to the pt. No questions about discharge. Pt exited the unit by wheelchair to friends car.
== END 2023-03-25 15:18 | disposition home or self-care (01) ==
LOC: COL.CAR 09:53
DX: T82.858A Stenosis of other vascular prosthetic devices, implants and grafts, initial encounter (principal); N18.6 End stage renal disease; Z99.2 Dependence on renal dialysis
CPT/HCPCS: J2250; J3010

== ENCOUNTER 2023-07-25 14:27 | Emergency (ER) | payer MEDICARE, BC ==
[~2023-07-25] VITALS: Ht 188 cm; Wt 129.5 kg
[~2023-07-25 14:27] MED LIST changes: +CARTIA XT180 MG PO; +COUMADIN 22.5 MG/TAB PO; +FOSRENOL1000 MG PO
[2023-07-25 14:34] VITALS: TEMP 99
[2023-07-25 15:11] LABS: BASO % 0.9 % (0.0-2.0); EOS # 0.6 K/mm3 (0.0-0.7); EOS % 13.3 % (0.0-4.0); GRAN # 2.4 K/mm3 (1.4-6.5); GRAN % 54.7 % (42.2-75.2); HEMOGLOBIN 11.2 g/dl (13.5-18.0); LYMPH # 0.5 K/mm3 (1.2-3.4); LYMPH % 11.5 % (20.0-51.0); MEAN CELL VOLUME 95 fl (80.0-100.0); MEAN CORPUSCULAR HEMOGLOBIN 31 pg (27-31); MEAN CORPUSCULAR HGB CONC 32 g/dl (33.0-37.0); MEAN PLATELET VOLUME 10.5 fl (7.4-10.4); MONO # 0.9 K/mm3 (0.1-0.6); MONO % 19.1 % (1.7-9.3); PLATELET COUNT 146 K/mm3 (130-400); RED BLOOD COUNT 3.65 M/mm3 (4.20-5.60); REDCELL DISTRIBUTION WIDTH-CV 13.8 % (11.5-14.5)
[2023-07-25 15:14] LABS: HEMATOCRIT 34.7 % (42.0-52.0)
[2023-07-25 15:22] LABS: ALBUMIN 3.6 gm/dL (3.4-4.8); BILIRUBIN,TOTAL 0.8 mg/dL (0.2-1.2); CALCIUM 9.5 mg/dL (8.4-10.2); CREATININE, serum 5.55 mg/dL (0.72-1.25); POTASSIUM 3.5 mmol/L (3.5-4.5); TOTAL PROTEIN 8.2 gm/dL (6.2-8.1)
[2023-07-25 15:29] LABS: TROPONIN-I 0.07 ng/mL (0.00-0.033)
[2023-07-25] MEDS ORDERED: TUSS PO (18:35)
[2023-07-25 18:54] VITALS: BP 179/98; PULSE 87
== END 2023-07-25 19:03 | disposition home or self-care (01) ==
LOC: COL.ER 14:27
PROVIDERS: Physician Assistant
DX: B34.9 Viral infection, unspecified (principal); R05.9 Cough, unspecified; I12.0 Hypertensive chronic kidney disease with stage 5 chronic kidney disease or end stage renal disease; N18.6 End stage renal disease; Z99.2 Dependence on renal dialysis
CPT/HCPCS: J0360

== ENCOUNTER 2023-10-06 16:43 | Inpatient (IN) | payer MEDICARE, BC ==
[~2023-10-06] VITALS: Ht 188 cm; Wt 103.3 kg
[~2023-10-06 16:43] MED LIST changes: +TUSS PO
[2023-10-06 17:00] VITALS: BP_SYST 174
[2023-10-06 17:58] LABS: BASO # 0.1 K/mm3 (0.0-0.2); EOS # 0.4 K/mm3 (0.0-0.7); EOS % 8.1 % (0.0-4.0); GRAN # 3.6 K/mm3 (1.4-6.5); GRAN % 68.3 % (42.2-75.2); LYMPH # 0.7 K/mm3 (1.2-3.4); LYMPH % 14.1 % (20.0-51.0); MEAN CELL VOLUME 94 fl (80.0-100.0); MEAN CORPUSCULAR HGB CONC 33 g/dl (33.0-37.0); MEAN PLATELET VOLUME 10.5 fl (7.4-10.4); MONO # 0.4 K/mm3 (0.1-0.6); MONO % 8.1 % (1.7-9.3); PLATELET COUNT 206 K/mm3 (130-400); RED BLOOD COUNT 2.91 M/mm3 (4.20-5.60); REDCELL DISTRIBUTION WIDTH-CV 15.3 % (11.5-14.5)
[2023-10-06 17:59] LABS: HEMATOCRIT 27.3 % (42.0-52.0); MEAN CORPUSCULAR HEMOGLOBIN 31 pg (27-31)
[2023-10-06 18:17] LABS: ALBUMIN 3.4 gm/dL (3.4-4.8); BILIRUBIN,TOTAL 0.9 mg/dL (0.2-1.2); CALCIUM 9.7 mg/dL (8.4-10.2); CREATININE, serum 6.02 mg/dL (0.72-1.25); POTASSIUM 3.3 mmol/L (3.5-4.5); TOTAL PROTEIN 8.3 gm/dL (6.2-8.1)
[2023-10-06 18:25] LABS: TROPONIN-I 0.05 ng/mL (0.00-0.033)
[2023-10-06] MEDS ORDERED: SULAR34 MG PO (19:00)
[2023-10-06] MEDS ORDERED: CATAPRES 0.1MG0.1 MG PO (19:04)
[2023-10-06] MEDS ORDERED: COUMADIN 5MG5 MG/TAB PO (19:04)
[2023-10-06] MEDS ORDERED: COUMADIN 77.5 MG/TAB PO (19:04)
[2023-10-06] MEDS ORDERED: [UNRECOGNIZED DRUG - REMARK] PO SCH (20:09)
[2023-10-06] MEDS ORDERED: hydrALAZINE 20 MG/ML 1 ML VIAL IV PRN (20:15)
[2023-10-06] MEDS ORDERED: Albuterol/Ipratropium 3 MG-0.5 MG/3 ML Neb Soln IH PRN (20:15)
[2023-10-06] MEDS ORDERED: Acetaminophen 325 MG TAB PO PRN (20:15)
[2023-10-06] MEDS ORDERED: Ondansetron 4 MG/2 ML VIAL IV PRN (20:15)
[2023-10-06 20:19] LABS: INR 2.3 (0.8-3.0); PROTHROMBIN TIME 24.5 SECONDS (9.7-12.8)
[2023-10-06 21:00] VITALS: BP_SYST 178
[2023-10-06] MEDS ORDERED: cloNIDine 0.1 MG TAB PO SCH (21:00)
[2023-10-06] MEDS ORDERED: Carvedilol 25 MG TAB PO SCH (21:00)
[2023-10-06] MEDS ORDERED: Sennosides/Docusate 8.6-50 MG TAB PO SCH (21:00)
[2023-10-06 21:52] VITALS: BP 209/100; PULSE 84; TEMP 97.8
--- NOTE | 2023-10-06 21:55 | NUR ---
Upon addmission, Todd's bp was 209/110. Home med-clonidine given immediately. Other vs wnl. Currently denies pain. oriented to room. will bp recheck in 15 mins and administer hydralazine if necessary.
[2023-10-06 22:20] VITALS: BP 178/87; PULSE 67; TEMP 98.2
[2023-10-06 22:59] VITALS: BP 178/87; PULSE 67; TEMP 98.2
--- NOTE | 2023-10-06 23:02 | NUR ---
BP RECHECK- 191/90. WILL ADMINISTER PRN HYDRALAZINE
--- NOTE | 2023-10-06 23:46 | NUR ---
BLOOD PRESSURE RECHECK 174/90 NO HYDRALAZINE GIVEN
[2023-10-07] VITALS (431 sets, daily range): BP systolic 148–211; BP diastolic 71–110; PULSE 70–86; TEMP 97–99; O2SAT 72–100
--- NOTE | 2023-10-07 00:40 | NUR ---
CALL PLACED TO HOSPITALISTAUGUSTUS. CRITICAL TROPONIN-0.049.
--- NOTE | 2023-10-07 06:29 | NUR ---
BP RECHECK- 194/95. CANNOT GIVE ADDITIONAL DOSE OF HYDRALAZINE; UPCOMING MORNING MEDS INCLUDE-AMLODIPINE AND CLONIPINE. WILL ADVISE DAYSHIFT TO GIVE THOSE EARLY. CORNELIA DENIES HEAD ACHE, SOA AND TELE IS NS AT 71BPM.
[2023-10-07 08:15] LABS: PROTHROMBIN TIME 32.4 SECONDS (9.7-12.8)
[2023-10-07 08:18] LABS: ALBUMIN 3.1 gm/dL (3.4-4.8); BILIRUBIN,TOTAL 0.6 mg/dL (0.2-1.2); CALCIUM 9.2 mg/dL (8.4-10.2); CREATININE, serum 8.04 mg/dL (0.72-1.25); POTASSIUM 4.3 mmol/L (3.5-4.5); TOTAL PROTEIN 7.2 gm/dL (6.2-8.1)
[2023-10-07 08:24] LABS: MEAN CELL VOLUME 96 fl (80.0-100.0); MEAN CORPUSCULAR HGB CONC 32 g/dl (33.0-37.0); MEAN PLATELET VOLUME 10.6 fl (7.4-10.4); PLATELET COUNT 219 K/mm3 (130-400); RED BLOOD COUNT 2.76 M/mm3 (4.20-5.60); REDCELL DISTRIBUTION WIDTH-CV 15.3 % (11.5-14.5)
[2023-10-07 08:27] LABS: HEMATOCRIT 26.5 % (42.0-52.0); HEMOGLOBIN 8.4 g/dl (13.5-18.0); MEAN CORPUSCULAR HEMOGLOBIN 30 pg (27-31)
[2023-10-07 08:39] LABS: THYROID STIMULATING HORMONE 0.411 uIU/mL (0.350-4.940)
[2023-10-07] MEDS ORDERED: amLODIPine 5 MG TAB PO SCH (09:00)
--- NOTE | 2023-10-07 10:38 | NUR ---
patient keeps having elevated blood pressures. prn given. doctor notified. patient will be getting dialysed later today.
[2023-10-07] MEDS ORDERED: JANTOVEN5 MG PO (10:57)
[2023-10-07] MEDS ORDERED: amLODIPine 5 MG TAB PO ONE (11:00)
[2023-10-07] MEDS ORDERED: Albumin (Human) 100 ML IV SCH (11:15)
[2023-10-07] MEDS ORDERED: Heparin 1,000 UNITS/ML 10 ML Multi-Dose VIAL IV SCH ×2 (11:15)
--- NOTE | 2023-10-07 11:53 | NUR ---
vegetable ii farmworker attended interdisciplinary clinical rounding. Patient would like to return home when medically ready. Dr Nelson suggested home health services. TIAGO spoke with PT whom expressed home health would be benefical to this patient. TIAGO met with patient to discuss discharge planning. Patient lives in [place] with his brother Venu, P#[phone]. PCP is Dr. Guillen, pharmacy is [facility]. No issues affording medications. Patient reports no DPOA-HC and does not wish to complete one at this time. Patient reports he has a cane at home but does not currently utilize it. Patient reports to be independent with ADLS. Patient is able to get to and from his appointments. Patient receives his Dialysis through [facility]. SW discussed home health services, patient declined at this time. TIAGO provided Medicare.gov list of options for home health in case he were to change his mind. Patient would like to return home at time of discharge. Discharge plan: Home
--- NOTE | 2023-10-07 16:00 | NUR ---
patient kept having elevated blood pressures through out dialysis time. patient will be transfering to icu for closer monitoring of new medication.
--- NOTE | 2023-10-07 16:25 | NUR ---
PATIENT ARRIVED TO THE UNIT VIA WHEELCHAIR ACCOMPANIED BY MEDICAL RNYASMIN. PATIENT WAS NOT IN DISTRESS UPON ARRIVAL.
[2023-10-07] MEDS ORDERED: niCARdipine 200 ML IV SCH (16:45)
[2023-10-08] VITALS (1128 sets, daily range): BP systolic 151–186; BP diastolic 79–104; PULSE 65–83; TEMP 97.7–98.8; O2SAT 85–100
[2023-10-08 05:10] LABS: PROTHROMBIN TIME 31.8 SECONDS (9.7-12.8)
--- NOTE | 2023-10-08 07:53 | NUR ---
PATIENT IS PLEASANT AND DOES NOT APPEAR TO BE IN PAIN OR DISTRESS. MINIMAL EDEMA NOTED TO LOWER EXTREMITIES. BLOOD PRESSURE REMAINING WITHIN PARAMETERS WHILE ON CARDENE GTT. PATIENT DOES NOT HAVE ANY QUESTIONS OR CONCERNS AT THIS TIME. BED IN LOW POSITION AND CALL LIGHT WITHIN REACH.
[2023-10-08 08:54] LABS: BASO # 0.1 K/mm3 (0.0-0.2); BASO % 1.1 % (0.0-2.0); EOS # 0.4 K/mm3 (0.0-0.7); GRAN # 2.9 K/mm3 (1.4-6.5); GRAN % 65.7 % (42.2-75.2); LYMPH # 0.8 K/mm3 (1.2-3.4); LYMPH % 17.1 % (20.0-51.0); MEAN CELL VOLUME 93 fl (80.0-100.0); MEAN CORPUSCULAR HGB CONC 33 g/dl (33.0-37.0); MEAN PLATELET VOLUME 11.5 fl (7.4-10.4); MONO # 0.3 K/mm3 (0.1-0.6); MONO % 6.7 % (1.7-9.3); PLATELET COUNT 239 K/mm3 (130-400); RED BLOOD COUNT 2.83 M/mm3 (4.20-5.60); REDCELL DISTRIBUTION WIDTH-CV 15.2 % (11.5-14.5)
[2023-10-08 08:55] LABS: HEMATOCRIT 26.3 % (42.0-52.0); HEMOGLOBIN 8.7 g/dl (13.5-18.0); MEAN CORPUSCULAR HEMOGLOBIN 31 pg (27-31)
[2023-10-08 08:57] LABS: CALCIUM 9.3 mg/dL (8.4-10.2); CREATININE, serum 8.19 mg/dL (0.72-1.25)
[2023-10-08] MEDS ORDERED: amLODIPine 10 MG TAB PO SCH (09:00)
[2023-10-08] MEDS ORDERED: cloNIDine 0.1 MG TAB PO PRN (10:30)
--- NOTE | 2023-10-08 10:58 | NUR ---
machine operator farmworker attended clinical rounding and was informed pt could likely transfer to the floor after he finishes a drip medication. Discharge Plan: floor orders
--- NOTE | 2023-10-08 11:02 | NUR ---
Initial visit; Patient thanked Sweatband Decorating Machine Operator for stopping by though he declined Spiritual Care.
[2023-10-08] MEDS ORDERED: hydrALAZINE 10 MG TAB PO SCH (12:00)
--- NOTE | 2023-10-08 15:15 | NUR ---
Dialysis Note Pt ran in ICU removed 3.0 kg. Last bp 181/100 Primary RN aware. Pt voiced no concern.
[2023-10-08] MEDS ORDERED: Patient's Own Medication Item PO SCH (17:45)
--- NOTE | 2023-10-08 19:15 | NUR ---
REPORT RECEIVED FROM FIGUEROA ATKINS. PATIENT SITTING ON EDGE OF BED WATCHING TV.
--- NOTE | 2023-10-08 19:15 | NUR ---
REPORT RECEIVED FROM FIGUEROA ATKINS. PATIENT RESTING IN BED WATCHING TV.
[2023-10-08] MEDS ORDERED: cloNIDine 0.1 MG TAB PO SCH (21:00)
[2023-10-09] VITALS (796 sets, daily range): BP systolic 136–182; BP diastolic 75–96; PULSE 63–75; TEMP 97.7–98.6; O2SAT 51–100
[2023-10-09 04:41] LABS: INR 2.9 (0.8-3.0); PROTHROMBIN TIME 30.8 SECONDS (9.7-12.8)
--- NOTE | 2023-10-09 07:00 | NUR ---
Report received from FIGUEROA Dennis; patient currently resting in bed with no meds or fluids running through his peripheral INT. Patient has 2L oxygen via NC while sleeping; vital signs are within normal limits this morning with the exception of blood pressure which is elevated.
[2023-10-09] MEDS ORDERED: hydrALAZINE 10 MG TAB PO ONE (09:00)
--- NOTE | 2023-10-09 11:31 | NUR ---
insole department worker attended clinical rounding and was informed pt will transfer to the medical floor today and likely discharge tomorrow after diaylsis. Discharge Plan: home
[2023-10-09] MEDS ORDERED: hydrALAZINE 25 MG TAB PO SCH (12:00)
[2023-10-09] MEDS ORDERED: Heparin 1,000 UNITS/ML 10 ML Multi-Dose VIAL IV SCH (16:00)
--- NOTE | 2023-10-09 17:40 | NUR ---
PT ARRIVED FROM ICU TO ROOM 317. PT AMBULATED FROM WHEELCHAIR TO BED. PT IS RA. PT IS ON TELE SHOWING SR. PT ORIENTED TO ROOM AND FLOOR. PT GIVEN CALL LIGHT AND INSTRUCTED TO CALL WTIH ALL NEEDS. PT DENIES SOB OR PAIN AT THIS TIME.
--- NOTE | 2023-10-09 21:30 | NUR ---
Patient resting in bed. Denies any pain or needs at this time. Assessment complete. IV in left forearm flushes slow with some pain and inflammation. IV site discontinued and new site started. Fistula thrill felt and bruit asculated. Call light and persoanl items in reach. Bed in low position and bed alarm on.
[2023-10-10] VITALS (12 sets, daily range): BP systolic 151–192; BP diastolic 70–95; PULSE 68–75; TEMP 97.7–98.2
[2023-10-10] MEDS ORDERED: hydrALAZINE 20 MG/ML 1 ML VIAL IV ONE ×2 (01:30→02:45)
--- NOTE | 2023-10-10 06:00 | NUR ---
Patient resting in bed. Denies any pain or needs at this time. Patient has had high blood pressures over night. No other changes over night. Call light and personal items in reach. Bed in low position and bed alarm on.
[2023-10-10] MEDS ORDERED: Lisinopril 5 MG TAB PO SCH (09:00)
[2023-10-10] MEDS ORDERED: Regadenoson 0.08 MG/ML 5 ML SYRINGE IV SCH (09:10)
[2023-10-10 10:27] LABS: PROTHROMBIN TIME 31.9 SECONDS (9.7-12.8)
[2023-10-10 10:40] LABS: CALCIUM 9.7 mg/dL (8.4-10.2); CREATININE, serum 10.26 mg/dL (0.72-1.25)
[2023-10-10] MEDS ORDERED: APRESOLINE 25MG25 MG PO (12:00)
[2023-10-10] MEDS ORDERED: PRINIVIL2.5 MG PO (12:01)
--- NOTE | 2023-10-10 13:50 | NUR ---
Nicu Rn met with patient to present and review IM. Patient verbalized understanding and provided signature. SW placed form in chart and provided copy to patient. SW also discussed Home Health and patient was not interested at this time.
--- NOTE | 2023-10-10 14:54 | NUR ---
Patient alert and oriented x4. Lexiscan performed this morning, patient returned feeling fatigued. Tolerating food and fluids well. Stable on room air. BP 190/94 this morning, scheduled Hydralazine, Clonidine, and Coreg administered. SBP 171 after recheck. Scheduled Lisinopril administered. SBP in 150s around noon. Patient currently in dialysis at this time. Denies pain or discomfort, just states he is exhausted.
--- NOTE | 2023-10-10 17:18 | NUR ---
Discharge instructions discussed with patient including new medications, follow-up appointments, INR check, and education packet. Discussed monitoring BP at home and recording, patient states he has a blood pressure machine. IV discontinued to left forearm with no complications. Telemetry off. Patient assisted in getting dressed. Currently waiting for friend/family to pick him up.
== END 2023-10-10 17:00 | disposition home or self-care (01) | DRG 189 ==
LOC: COL.ER 16:43 → SURG 20:22 → MEDICAL 10-07 15:49 → ICU 10-07 16:04 → MEDICAL 10-09 17:50
PROVIDERS: Internal Medicine; Nurse Practitioner Primary Care; Physician Assistant; ADMIT Internal Medicine
PROC: 5A1D70Z Performance of Urinary Filtration, Intermittent, Less than 6 Hours Per Day (ICD-10-PCS; principal; 2023-10-10)
DX: J96.01 Acute respiratory failure with hypoxia (principal); N18.6 End stage renal disease; I12.0 Hypertensive chronic kidney disease with stage 5 chronic kidney disease or end stage renal disease; I16.0 Hypertensive urgency; Z20.822 Contact with and (suspected) exposure to COVID-19; E11.22 Type 2 diabetes mellitus with diabetic chronic kidney disease; R79.89 Other specified abnormal findings of blood chemistry; M19.90 Unspecified osteoarthritis, unspecified site; D64.9 Anemia, unspecified; K46.9 Unspecified abdominal hernia without obstruction or gangrene; E87.5 Hyperkalemia; E66.9 Obesity, unspecified; E87.70 Fluid overload, unspecified; E87.6 Hypokalemia; I48.0 Paroxysmal atrial fibrillation; H26.9 Unspecified cataract; M10.9 Gout, unspecified; Z99.2 Dependence on renal dialysis; Z79.899 Other long term (current) drug therapy; Z79.02 Long term (current) use of antithrombotics/antiplatelets; Z23 Encounter for immunization; Z68.34 Body mass index [BMI] 34.0-34.9, adult
CPT/HCPCS: A9500-JZ; A9540-JZ; A9567-JZ; G0378; J0360; J1644; J2404; J2785; P9047; Q3014

== ENCOUNTER 2024-03-24 21:58 | Inpatient (IN) | payer MEDICARE, BC ==
[~2024-03-24] VITALS: Ht 188 cm; Wt 119.0 kg
[~2024-03-24 21:58] MED LIST changes: +APRESOLINE 25MG25 MG PO; +CATAPRES 0.1MG0.1 MG PO; +COUMADIN 77.5 MG/TAB PO; +JANTOVEN5 MG PO; +PRINIVIL2.5 MG PO
[2024-03-24] MEDS ORDERED: Acetaminophen 325 MG TAB PO ONE (22:45)
[2024-03-24] MEDS ORDERED: Morphine 4 MG/ML VIAL IV ONE (22:45)
[2024-03-24 23:07] LABS: BASO # 0.1 K/mm3 (0.0-0.2); BASO % 1.1 % (0.0-2.0); EOS # 0.7 K/mm3 (0.0-0.7); GRAN # 3.3 K/mm3 (1.4-6.5); GRAN % 58.8 % (42.2-75.2); HEMOGLOBIN 11.8 g/dl (13.5-18.0); LYMPH % 18.4 % (20.0-51.0); MEAN CELL VOLUME 93 fl (80.0-100.0); MEAN CORPUSCULAR HEMOGLOBIN 31 pg (27-31); MEAN CORPUSCULAR HGB CONC 33 g/dl (33.0-37.0); MONO # 0.5 K/mm3 (0.1-0.6); MONO % 9.5 % (1.7-9.3); PLATELET COUNT 180 K/mm3 (130-400); RED BLOOD COUNT 3.83 M/mm3 (4.20-5.60); REDCELL DISTRIBUTION WIDTH-CV 14.2 % (11.5-14.5)
[2024-03-24 23:11] LABS: ERYTHROCYTE SEDIMENTATION RATE 89 mm/hr (0-30)
[2024-03-24 23:12] LABS: HEMATOCRIT 35.5 % (42.0-52.0); INR 1.9 (0.8-3.0); PROTHROMBIN TIME 19.9 SECONDS (9.7-12.8)
[2024-03-24 23:25] LABS: ALBUMIN 3.4 g/dL (3.4-4.8); BILIRUBIN,TOTAL 0.5 mg/dL (0.2-1.2); C-REACTIVE PROTEIN 1.79 mg/dL (0.00-0.50); CALCIUM 8.4 mg/dL (8.4-10.2); CREATININE, serum 7.27 mg/dL (0.72-1.25); POTASSIUM 3.6 mEq/L (3.5-4.5); TOTAL PROTEIN 8.5 g/dl (6.2-8.1)
[2024-03-24] MEDS ORDERED: PRINIVIL40 MG PO (23:55)
[2024-03-25] VITALS (659 sets, daily range): BP systolic 14–228; BP diastolic 79–110; PULSE 59–68; TEMP 97.4–98.2; O2SAT 84–100
[2024-03-25] MEDS ORDERED: Ondansetron 4 MG/2 ML VIAL IV PRN ×2 (00:15)
[2024-03-25] MEDS ORDERED: hydrALAZINE 20 MG/ML 1 ML VIAL IV PRN (00:15)
[2024-03-25] MEDS ORDERED: Acetaminophen 325 MG TAB PO PRN (00:15)
[2024-03-25] MEDS ORDERED: Morphine 4 MG/ML VIAL IV PRN (00:15)
--- NOTE | 2024-03-25 00:23 | NUR ---
PATIENT ADMITTED TO ROOM 318 BROUGHT UP IN WHEELCHAIR BY ER-RN. PATIENT AMBULATED TO BED WITH NO COMPLICATIOINS. HE IS AXOx4 AND NECROTIC WOUND NOTED TO RT MERAZ. PATIENT C/O 6/10 PAIN SHARP TO RT MERAZ. VS ARE 177/89 BP, 94%, 63PULSE, 97.4 TEMP. ORIENTED ROOM.
--- NOTE | 2024-03-25 00:47 | NUR ---
Vancomycin Initial Dosing Pharmacy Note Ordering provider: Anabel Calixto MD Indication/duration: Cellulitis x 7 days Relevant comorbidities: ESRD on dialysis MWF, HTN LABS: WBC = 5.6, SCr = 7.27 Recommendation: Will dose vanco periodically based on levels. Loading dose: 2.5 grams Maintenance dose: Intermitant based on levels Trough goal: 10-15 ug/mL
[2024-03-25] MEDS ORDERED: Vancomycin 1.25 GM,Special Dose/Pharmacy Prepared 1.25 GM in NS 250 ML IV SCH (01:00)
[2024-03-25] MEDS ORDERED: cefTRIAXone 2 G in Water For Injection,Sterile 20 ML IV SCH (01:00)
--- NOTE | 2024-03-25 01:48 | NUR ---
RT FOREARM DIALYSIS FISTULA AUSCULTATED BRUIT AND THRILL-WNL.
--- NOTE | 2024-03-25 03:01 | NUR ---
CALL PLACED TO HOSPITALIST AUGUSTUS, PATIENT REMAINS HYPERTENSIVE 195 SYSTOLIC AND CONTINUES TO EXPERIENCE 8/10 RT MERAZ PAIN FOLLOWING PRN MORPHINE IV 2MG. TORB TO ADMINISTER ANOTHER 2MG MORPHINE AND MONITOR BP GIVEN,
--- NOTE | 2024-03-25 05:32 | NUR ---
CALL PLACED TO HOSPITALISTAUGUSTUS. PATIENT REMAINS HYPER TENSIVE . TORB TO ADMINISTER 0900 SCHEDULED 0.1MG CLONODINE (CATAPRES) NOW GIVEN.
--- NOTE | 2024-03-25 07:32 | NUR ---
Bedside report received from FIGUEROA Murillo. PCT at bedside obtaining vital signs and noted BP 224/108. TOMASA Ramírez notifed by phone and instructed this nurse to administer scheduled Norvasc and Coreg along with PRN Morphine and Hydralazine as ordered. Pt has no complaints at this time. Call light within reach.
--- NOTE | 2024-03-25 07:34 | NUR ---
DURING BEDSIDE REPORT, PATIENT'S HYPERTENSIVE EPISODE HAD NOT RESOLVED FROM EARLY DOSE OF CLONOPINE. BP 205/104. BRADFORD CALLED HOSPITALIST MARIAM. ORDERS WERE GIVEN.
[2024-03-25] MEDS ORDERED: Insulin Lispro (HumaLOG) SQ SCH (08:00)
[2024-03-25] MEDS ORDERED: Carvedilol 25 MG TAB PO SCH (08:00)
--- NOTE | 2024-03-25 08:23 | NUR ---
Pt awake sitting on side of bed eating breakfast. BP rechecked and noted at 201/87, TOMASA Ramírez notifed. No new orders at this time. Pain reassessed and pt states there is shooting pain in RLE. PRN pain medication offered and pt denied at this time. BLE edema noted in assessment. Wound to Rt sam open to air at this time. Wound is scabbed near center of wound. Pt states he feels lightheaded and is having nausea. Offered to assist pt to laying position and pt denied. PRN zofran offered for nausea and pt denied at this time stating he thinks eating will help nausea go away. Pt has no request at this time. Call light within reach.
[2024-03-25] MEDS ORDERED: Acetaminophen 500 MG TAB PO PRN (08:45)
[2024-03-25] MEDS ORDERED: oxyCODONE 5 MG TAB PO PRN (08:45)
[2024-03-25] MEDS ORDERED: Lisinopril 20 MG TAB PO SCH (09:00)
[2024-03-25] MEDS ORDERED: Sennosides/Docusate 8.6-50 MG TAB PO SCH (09:00)
[2024-03-25] MEDS ORDERED: *Vancomycin Dosing Protocol IV SCH (09:00)
[2024-03-25] MEDS ORDERED: [UNRECOGNIZED DRUG - REMARK] PO SCH (09:00)
[2024-03-25] MEDS ORDERED: cloNIDine 0.1 MG TAB PO SCH ×2 (09:00→14:00)
[2024-03-25] MEDS ORDERED: amLODIPine 10 MG TAB PO SCH (09:00)
--- NOTE | 2024-03-25 09:41 | NUR ---
Initial visit; Patient thanked Heavy Line Technician for looking in on him and offering prayer and God's blessings. Patient states he is feeling better though his sam has changed from being painful to itching. Heavy Line Technician suggested that he mention this to his nurse and/or physician.
--- NOTE | 2024-03-25 09:43 | NUR ---
Dr. Nelson notifed of BP recheck of 218/105.
[2024-03-25] MEDS ORDERED: niCARdipine 200 ML IV SCH (10:00)
--- NOTE | 2024-03-25 10:20 | NUR ---
Report given to STRAIGHT RULING MACHINE OPERATOR Lesli. Pt transported to ICU by bed.
--- NOTE | 2024-03-25 13:53 | NUR ---
scrap worker met with pt to discuss discharge planning. He reports to live with his brother, Venu [phone] in [place]. He sees Dr. Guillen for PCP needs and obtains medications from [facility] with no difficulties. He confirmed his insurance as Medicare A/B and BCBS. He is independent with ADLS and uses no DME. He does not have a DPOA-HC and reports his brother is NOK. No further needs. Discharge Plan: home
[2024-03-25] MEDS ORDERED: Sevelamer Carbonate 800 MG TAB PO SCH (17:00)
--- NOTE | 2024-03-25 19:16 | NUR ---
PATIENT CURRENTLY SITTING IN RECLINER, TALKING ON PHONE. IV IN LEFT FOREARM WITH GTTS RUNNING. 2 FISTULA'S ON RIGHT SIDE. STAND BY ASSIST TO COMMODE. A0X3 BUT FLAT AFFECT. CALL LIGHT WITHIN REACH. NO ACUTE EVENTS.
[2024-03-25] MEDS ORDERED: Patient's Own Medication Item PO SCH (19:57)
[2024-03-25] MEDS ORDERED: Warfarin 5 MG TAB PO SCH (21:00)
[2024-03-26] VITALS (779 sets, daily range): BP systolic 139–157; BP diastolic 68–93; PULSE 59–67; TEMP 97.8–98.2; O2SAT 76–100
[2024-03-26 04:31] LABS: BASO # 0.1 K/mm3 (0.0-0.2); GRAN # 2.6 K/mm3 (1.4-6.5); GRAN % 50.2 % (42.2-75.2); HEMOGLOBIN 10.6 g/dl (13.5-18.0); LYMPH # 0.9 K/mm3 (1.2-3.4); LYMPH % 17.6 % (20.0-51.0); MEAN CELL VOLUME 92 fl (80.0-100.0); MEAN CORPUSCULAR HEMOGLOBIN 30 pg (27-31); MEAN CORPUSCULAR HGB CONC 33 g/dl (33.0-37.0); MONO # 0.6 K/mm3 (0.1-0.6); PLATELET COUNT 162 K/mm3 (130-400); RED BLOOD COUNT 3.53 M/mm3 (4.20-5.60); REDCELL DISTRIBUTION WIDTH-CV 14.1 % (11.5-14.5)
[2024-03-26 04:33] LABS: INR 2.4 (0.8-3.0); PROTHROMBIN TIME 25.7 SECONDS (9.7-12.8)
[2024-03-26 04:36] LABS: HEMATOCRIT 32.4 % (42.0-52.0)
[2024-03-26 04:42] LABS: CALCIUM 8.3 mg/dL (8.4-10.2); CREATININE, serum 10.39 mg/dL (0.72-1.25); POTASSIUM 4.3 mEq/L (3.5-4.5)
[2024-03-26] MEDS ORDERED: NS 1,000 ML IV SCH (05:45)
[2024-03-26] MEDS ORDERED: Heparin 1,000 UNITS/ML 10 ML Multi-Dose VIAL IV SCH (05:45)
--- NOTE | 2024-03-26 07:00 | NUR ---
Received report from FIGUEROA Pal; patient currently laying in bed and is undergoing dialysis. Patient has one INT in place, an unused dialysis fistula on the right forearm, and a right-sided dialysis port. Patient is on room air and no other lines or tubes are in place this morning. Patient's vital signs are within normal limits this morning; patient's blood pressure has been 150s-160s systolic after resuming home medication. Cardene drip has been off since approx 2200 yesterday.
--- NOTE | 2024-03-26 09:56 | NUR ---
Dialysis Note Uf goal set for 3.0 kg and 3.0 kg removed. Pt tolerated tx well with no concerns voiced.
--- NOTE | 2024-03-26 10:40 | NUR ---
Follow-up visit; Patient thanked Grocery Store Clerk for stopping by again to see how he is doing. He was glad to hear that Grocery Store Clerk will keep him in her prayers for a month and wishes him well today.
--- NOTE | 2024-03-26 13:50 | NUR ---
Warfarin Follow-up Pharmacy Note Current regimen: 10 MG PO DAILY LABS: DAILY INR X 5 DAYS Changes in therapy: WITH LARGE INCREASE IN INR OVERNIGHT, WILL EMPIRICALLY REDUCE WARFARIN DOSE TO 7.5 MG ON 03/26/24. WILL RE-ASSESS INR ON 03/27/24 AND ADJUST DOSE APPROPRIATE.
[2024-03-26] MEDS ORDERED: DOXYCYCLINE HY100 MG PO (14:38)
[2024-03-26] MEDS ORDERED: AMOXICILLIN 8751 TAB PO (14:38)
--- NOTE | 2024-03-26 15:25 | NUR ---
Patient discharged home with prescription for abx; patient's INT removed and discharge instructions gone over. All questions were answered and patient's belongings were all sent home with patient. Patient taken out in wheelchair and got into car independently.
[2024-03-27] MEDS ORDERED: Warfarin 5 MG TAB PO SCH (21:00)
== END 2024-03-26 15:25 | disposition home or self-care (01) | DRG 602 ==
LOC: COL.ER 21:58 → MEDICAL 23:31 → ICU 03-25 08:30 → MEDICAL 03-25 08:30 → ICU 03-25 10:30 → MEDICAL 03-26 14:14 → ICU 03-26 14:44
PROVIDERS: Emergency Medicine; Physician Assistant; ADMIT Internal Medicine
PROC: 5A1D70Z Performance of Urinary Filtration, Intermittent, Less than 6 Hours Per Day (ICD-10-PCS; principal; 2024-03-26)
DX: L03.115 Cellulitis of right lower limb (principal); N18.6 End stage renal disease; I13.11 Hypertensive heart and chronic kidney disease without heart failure, with stage 5 chronic kidney disease, or end stage renal disease; L97.818 Non-pressure chronic ulcer of other part of right lower leg with other specified severity; E11.22 Type 2 diabetes mellitus with diabetic chronic kidney disease; M10.062 Idiopathic gout, left knee; M10.061 Idiopathic gout, right knee; G89.29 Other chronic pain; E66.9 Obesity, unspecified; I48.91 Unspecified atrial fibrillation; E87.70 Fluid overload, unspecified; H26.9 Unspecified cataract; I16.0 Hypertensive urgency; D63.1 Anemia in chronic kidney disease; Z89.422 Acquired absence of other left toe(s); Z99.2 Dependence on renal dialysis; Z79.01 Long term (current) use of anticoagulants; Z79.899 Other long term (current) drug therapy; Z23 Encounter for immunization; Z68.33 Body mass index [BMI] 33.0-33.9, adult
CPT/HCPCS: J0360; J0696; J1644; J2270; J2404; J3370; J7030; J7050; Q3014

== ENCOUNTER 2024-04-22 15:51 | Emergency (ER) | payer MEDICARE, BC ==
[~2024-04-22] VITALS: Ht 188 cm; Wt 125.0 kg
[~2024-04-22 15:51] MED LIST changes: +AMOXICILLIN 8751 TAB PO; +DOXYCYCLINE HY100 MG PO; +PRINIVIL40 MG PO
[2024-04-22 16:01] VITALS: TEMP 98.1
[2024-04-22] MEDS ORDERED: CEPHALEXIN500 M1 PO (16:20)
[2024-04-22 16:35] VITALS: BP 147/81; PULSE 66
== END 2024-04-22 16:35 | disposition home or self-care (01) ==
LOC: COL.ER 15:51
DX: S81.812A Laceration without foreign body, left lower leg, initial encounter (principal); S80.922A Unspecified superficial injury of left lower leg, initial encounter; L03.116 Cellulitis of left lower limb; I12.0 Hypertensive chronic kidney disease with stage 5 chronic kidney disease or end stage renal disease; N18.6 End stage renal disease; Z99.2 Dependence on renal dialysis

== ENCOUNTER 2024-04-28 19:33 | Observation (INO) | payer MEDICARE, BC ==
[~2024-04-28] VITALS: Ht 188 cm; Wt 124.0 kg
[2024-04-28 20:35] LABS: BASO % 0.6 % (0.0-2.0); EOS # 0.4 K/mm3 (0.0-0.7); GRAN # 5.8 K/mm3 (1.4-6.5); GRAN % 80.8 % (42.2-75.2); LYMPH # 0.5 K/mm3 (1.2-3.4); LYMPH % 7.3 % (20.0-51.0); MEAN CELL VOLUME 91 fl (80.0-100.0); MEAN CORPUSCULAR HGB CONC 34 g/dl (33.0-37.0); MEAN PLATELET VOLUME 10.1 fl (7.4-10.4); MONO # 0.4 K/mm3 (0.1-0.6); PLATELET COUNT 250 K/mm3 (130-400); RED BLOOD COUNT 2.62 M/mm3 (4.20-5.60); REDCELL DISTRIBUTION WIDTH-CV 13.7 % (11.5-14.5)
[2024-04-28 20:38] LABS: HEMATOCRIT 23.9 % (42.0-52.0); MEAN CORPUSCULAR HEMOGLOBIN 31 pg (27-31)
[2024-04-28 21:12] LABS: TROPONIN-I 0.131 ng/mL (0.00-0.033)
[2024-04-28 21:26] LABS: ALBUMIN 2.9 g/dL (3.4-4.8); BILIRUBIN,TOTAL 0.6 mg/dL (0.2-1.2); CALCIUM 8.9 mg/dL (8.4-10.2); CREATININE, serum 13.72 mg/dL (0.72-1.25); POTASSIUM 4.1 mEq/L (3.5-4.5); TOTAL PROTEIN 8.2 g/dl (6.2-8.1)
[2024-04-29] VITALS (9 sets, daily range): BP systolic 153–183; BP diastolic 72–86; PULSE 0–84; TEMP 97.8–99.1
[2024-04-29] MEDS ORDERED: NEURONTIN100 MG/CAP PO (00:15)
[2024-04-29] MEDS ORDERED: LIPITOR 40MG TA40 MG PO (00:15)
[2024-04-29] MEDS ORDERED: Atorvastatin 40 MG TAB PO SCH (00:16)
[2024-04-29] MEDS ORDERED: cloNIDine 0.1 MG TAB PO SCH (00:16)
[2024-04-29] MEDS ORDERED: Cephalexin 500 MG CAP PO SCH (00:17)
[2024-04-29] MEDS ORDERED: Gabapentin 100 MG CAP PO SCH (00:18)
[2024-04-29] MEDS ORDERED: Lisinopril 20 MG TAB PO SCH (00:20)
[2024-04-29] MEDS ORDERED: Warfarin 5 MG TAB PO SCH (00:21)
[2024-04-29 01:11] LABS: INR 1.5 (0.8-3.0); PROTHROMBIN TIME 15.9 SECONDS (9.7-12.8)
[2024-04-29] MEDS ORDERED: [UNRECOGNIZED DRUG - OTHER] IV ONE (01:15)
[2024-04-29] MEDS ORDERED: VANCOMYCIN IV ONE (01:15)
[2024-04-29] MEDS ORDERED: Acetaminophen 325 MG TAB PO PRN (01:15)
[2024-04-29] MEDS ORDERED: NS IV ONE (01:15)
[2024-04-29] MEDS ORDERED: Carvedilol 25 MG TAB PO SCH (01:33)
[2024-04-29 01:54] LABS: MAGNESIUM 2.3 mg/dL (1.6-2.6); PHOSPHOROUS 4.3 mg/dL (2.3-4.7)
[2024-04-29] MEDS ORDERED: Iohexol 300 - 100 ML VIAL IV ONE (03:34)
[2024-04-29] MEDS ORDERED: traMADol 50 MG TAB PO PRN (04:30)
--- NOTE | 2024-04-29 04:35 | NUR ---
RECIEVED REPORT FROM ROLY REDDY RN. THIS RN BROUGHT PATIENT UP TO UNIT AT 0400. ALL BELONGINGS WITH PATIENT AT TIME OF TRANSFER. NO ACUTE EVENTS.
[2024-04-29] MEDS ORDERED: Sevelamer Carbonate 800 MG TAB PO SCH (08:00)
--- NOTE | 2024-04-29 08:42 | NUR ---
SPOKE WITH TERRITORY SALES CONSULTANT . ALEXI TO GO TO DIALYSIS AT 0915.
--- NOTE | 2024-04-29 08:43 | NUR ---
PHARMACY CALLED. JEIMYN TO BE RETIMED D/T RETIME DIALYSIS FOR THREE HOURS SOON. ZOSYN RETIMED TO 1300.
[2024-04-29] MEDS ORDERED: amLODIPine 10 MG TAB PO SCH (09:00)
[2024-04-29] MEDS ORDERED: NS 1,000 ML IV SCH (09:00)
[2024-04-29] MEDS ORDERED: Heparin 1,000 UNITS/ML 10 ML Multi-Dose VIAL IV SCH ×2 (09:00→16:45)
--- NOTE | 2024-04-29 10:11 | NUR ---
tannery worker met with pt to discuss discharge planning. He reports to live with his brother, Quinn [phone] in [place]. He sees Dr. Guillen for PCP needs and [facility]. He verified his insurance as Medicare A/B and BCBS. He is independent with ADLS and uses a wheelchair for DME. He does not have a DPOA-HC and is agreeable to brother being NOK. SW discussed potential need for oxygen upon discharge and he was agreeable to [facility] due to no preference. SW discussed PT/OT will work with him and make reccomendations likely for Home Health. He verbalized understanding. PT/OT Pending Discharge Plan: home with likely
[2024-04-29] MEDS ORDERED: DAZIDOX10 MG PO (11:27)
--- NOTE | 2024-04-29 11:41 | NUR ---
PATIENT CURRENTLY NI DIALYSIS
--- NOTE | 2024-04-29 12:33 | NUR ---
D: Damage Cutter stopped by room on rounds. A: Pt was resting and content. Pt has no needs right now. P: Damage Cutter informed pt that if he needed anything from the tailor garment fitter area to let his nurse know. Damage Cutter will follow up as needed.
--- NOTE | 2024-04-29 14:51 | NUR ---
DIALYSIS NOTE Pt arrived via WC uf goal of 4.0 kg set and 4.0 removed. Pt tolerated tx well and dcd back to room via WC with no concerns voiced.
--- NOTE | 2024-04-29 15:03 | NUR ---
TIAGO spoke with TOMASA Ramírez who reports an ex-ox will be conducted tomorrow. TIAGO notes PT/OT reccomend HH vs SNF. SW will discuss tomorrow. Discharge Plan: likely home with HH
--- NOTE | 2024-04-29 15:10 | NUR ---
PATIENT BACK IN ROOM FROM DIALYSIS AM MEDS CAN NOW BE ADMINISTERED.
--- NOTE | 2024-04-29 15:13 | NUR ---
MD INFORMED PATIENT VOICES INADEQUATE PAIN CONTROL WITH PO NORCO. PATIEN NORMALLY TAKES 10 MG OF OXYCODONE Q4H PRN AT HOME. PER D THIS RN MAY DC NORCO ORDER AND RESUME PATIENTS HOME MEDS OF OXYCODONE.
[2024-04-29] MEDS ORDERED: oxyCODONE 5 MG TAB PO PRN (15:15)
[2024-04-29] MEDS ORDERED: Vancomycin 1.75 GM,Special Dose/Pharmacy Prepared 1.75 GM in NS 500 ML IV ONE (17:00)
--- NOTE | 2024-04-29 23:13 | NUR ---
patient lying in bed, alert and oriented x4. denies chest pain and shortness of breath. reports pain rated 5/10 in BLE, per request gaby given. right sam large scab with drainage noted, nonadherant guaze and annmarie wrap in place, left lower calf with scabbing and small drainage with nonadherant gauze and annmarie wrap place, both CDI. BLE with +2 pitting edema, elevated on pillow. IV in LAC is patent, site CDI. fall precautions in place, call light within reach. pt has no further needs, questions or concerns at this time.
[2024-04-30] VITALS (12 sets, daily range): BP systolic 136–174; BP diastolic 74–94; PULSE 62–71; TEMP 98–99.1
[2024-04-30 07:55] LABS: BASO % 0.6 % (0.0-2.0); EOS # 0.5 K/mm3 (0.0-0.7); EOS % 9.5 % (0.0-4.0); GRAN # 3.6 K/mm3 (1.4-6.5); GRAN % 68.9 % (42.2-75.2); LYMPH # 0.6 K/mm3 (1.2-3.4); MEAN CELL VOLUME 94 fl (80.0-100.0); MEAN CORPUSCULAR HGB CONC 32 g/dl (33.0-37.0); MEAN PLATELET VOLUME 10.3 fl (7.4-10.4); MONO # 0.5 K/mm3 (0.1-0.6); MONO % 8.8 % (1.7-9.3); PLATELET COUNT 229 K/mm3 (130-400); RED BLOOD COUNT 2.17 M/mm3 (4.20-5.60)
[2024-04-30 07:58] LABS: HEMATOCRIT 20.4 % (42.0-52.0); MEAN CORPUSCULAR HEMOGLOBIN 30 pg (27-31)
[2024-04-30 07:59] LABS: HEMOGLOBIN 6.6 g/dl (13.5-18.0)
--- NOTE | 2024-04-30 08:08 | NUR ---
NOTIFIED OF CRITICAL LABS
--- NOTE | 2024-04-30 08:09 | NUR ---
PATIENT PO MEDS NOT GIVEN , DIALYSIS AT 0915
[2024-04-30 08:44] LABS: CALCIUM 8.4 mg/dL (8.4-10.2); CREATININE, serum 11.19 mg/dL (0.72-1.25); POTASSIUM 4.6 mEq/L (3.5-4.5)
[2024-04-30 09:04] LABS: INR 1.4 (0.8-3.0); PROTHROMBIN TIME 15.3 SECONDS (9.7-12.8)
--- NOTE | 2024-04-30 10:47 | NUR ---
limehouse worker received a call from Minnie from [facility] to determine if patient was still currently in the hospital. TIAGO explained he was still here at this time. No further questions or concerns. TIAGO notified Beau main child protective services social worker, of this call.
[2024-04-30] MEDS ORDERED: DOXYCYCLINE 10100 MG PO (11:39)
[2024-04-30] MEDS ORDERED: Doxycycline Monohydrate 100 MG CAP PO SCH (13:07)
--- NOTE | 2024-04-30 13:57 | NUR ---
DIALYSIS NOTE Pt arrived via WC uf goal set for 5.0 kg and 5.0 kg removed. pt dcd without complaints back to room via WC.
--- NOTE | 2024-04-30 14:45 | NUR ---
counter supply worker attended clinical rounding and was informed pt can discharge today, but could qualify for inpatient status and SW could discuss SNF. SW provided Medicare.gov list of HH agencies from previous discussion. Pt would consider this and inform SW. TIAGO later approached pt to discuss SNF and ask if he would be interested in this. Pt adamantly declined and SW discussed Swing Bed potentially, and he also declined. SW discussed benefits of HH shelter if he requires oxygen. TIAGO was informed pt qualifies for oxygen at 3L. TIAGO Lott emailed [facility] oxygen DME information and TOMASA Ramírez aware. TIAGO again met with pt to offer HH and he still declined. Discharge Plan: home with new oxygen
[2024-04-30 15:23] LABS: HEMATOCRIT 23.1 % (42.0-52.0); HEMOGLOBIN 7.4 g/dl (13.5-18.0)
--- NOTE | 2024-04-30 15:25 | NUR ---
bunker worker secure emailed oxygen order to [facility] and notified them patient would discharge today. SW notified patient's nurse, Shad, of oxygen order. Discharge plan: Home with new oxygen through [facility]
--- NOTE | 2024-04-30 16:21 | NUR ---
workers compensation claims analyst was notified by community assistant that patient needs a new PCP as patient's current PCP is retired. SW met with patient and he stated he would be okay with anyone at [facility] in [place]. SW asked about home health. Patient stated he does not want home health services. SW expressed patient qualifies for oxygen and his oxygen would be delivered before he discharges today. SW notified community assistant of the information above whom is going to attempt to schedule his appointments before patient discharges today. TIAGO contacted [facility] regarding patient's oxygen, SW was notified the oxygen order was being finalized then would be delivered to the hospital. SW notified patient's nurse. Discharge plan: Home with oxygen
--- NOTE | 2024-04-30 17:44 | NUR ---
CALL PLACED TO
--- NOTE | 2024-04-30 17:45 | NUR ---
PATIENT IV AND TELE REMOVE. PATIENT GIVEN DISCHARGE INSTRUCTIONS AND EDUCATION . PATENIT TAKEN VIA WHEELCHIAR TO ER ENTRANCE WHERE HE LEFT IN STABLE CONDITOIN WITH A FAMILY MEMBER, ON HIS NEW PORTABLE O2.
== END 2024-04-30 17:45 | disposition home or self-care (01) ==
LOC: COL.ER 19:33 → MEDICAL 04-29 00:09
PROVIDERS: Nurse Practitioner Family; Physician Assistant; ADMIT Hospitalist
DX: J96.01 Acute respiratory failure with hypoxia (principal); N18.6 End stage renal disease; R79.89 Other specified abnormal findings of blood chemistry; I21.4 Non-ST elevation (NSTEMI) myocardial infarction; I44.0 Atrioventricular block, first degree; D64.9 Anemia, unspecified; I73.9 Peripheral vascular disease, unspecified; I48.0 Paroxysmal atrial fibrillation; I10 Essential (primary) hypertension; E78.5 Hyperlipidemia, unspecified; R91.1 Solitary pulmonary nodule; L03.90 Cellulitis, unspecified; L97.219 Non-pressure chronic ulcer of right calf with unspecified severity; L97.519 Non-pressure chronic ulcer of other part of right foot with unspecified severity; R52 Pain, unspecified; Z79.01 Long term (current) use of anticoagulants; Z99.2 Dependence on renal dialysis; Z95.828 Presence of other vascular implants and grafts; Z89.422 Acquired absence of other left toe(s); Z79.899 Other long term (current) drug therapy
CPT/HCPCS: G0378; J1644; J2543; J3370; J7040; P9016; Q3014; Q9967

== ENCOUNTER 2024-05-20 09:42 | Outpatient (RCR) | payer MEDICARE, BC ==
[2024-05-20] VITALS (8 sets, daily range): BP systolic 115–153; BP diastolic 66–91; PULSE 84–88; TEMP 98.7–99
[~2024-05-20 09:42] MED LIST changes: +DAZIDOX10 MG PO; +LIPITOR 40MG TA40 MG PO; +NEURONTIN100 MG/CAP PO
[2024-05-20] MEDS ORDERED: NS 250 ML IV SCH (12:45)
--- NOTE | 2024-05-20 18:36 | NUR ---
PT TOLERATED INFUSION WELL. VS REMAINED WITHIN NORMAL LIMITS. PT REMAINED FREE FROM SIGNS AND SYMPTOMS OF HEMOLYTIC REACTION. PT ASSISTED TO ER EXIT VIA WHEELCHAIR. PT'S IV DISCONTINUED. PT FREE FROM ACUTE CONCERNS AND COMPLAINTS UPON DISCHARGE.
== END 2024-05-20 18:43 | disposition home or self-care (01) ==
LOC: EUO 09:42
DX: K92.2 Gastrointestinal hemorrhage, unspecified (principal)
CPT/HCPCS: P9016